=== PATIENT | female | born 1940 | race Caucasian/White ===

== ENCOUNTER 2018-07-02 22:53 | Emergency (ER) | payer OTHER ==
[2018-07-02 23:40] LABS: Absolute Lymphocytes (CBC) 2.8 K/uL (0.7-4.9); Absolute Monocytes 0.8 K/uL (0.1-1.3); Absolute Neutrophil 6.6 K/uL (1.8-8.0); Basophils % 0.7 % (0-1.3); Eosinophils % 1.6 % (0-4.4); Hematocrit 44.5 % (36.0-45.0); Lymphocytes % 26.9 % (15.3-44.8); MCH 32.3 pg (27.0-35.0); MCV 95.2 fL (80-100); MPV 9.7 fL (7.6-11.3); Monocytes % 7.8 % (3.3-12.3); RBC Red Blood Cell Count 4.68 M/uL (3.86-4.86)
[2018-07-02 23:41] LABS: Protime INR 1.02
[2018-07-03 00:02] LABS: ALT/SGPT 20 U/L (12-78); AST/SGOT 16 U/L (15-37); Albumin 4.1 g/dL (3.4-5.0); Alkaline Phosphatase 101 U/L (45-117); BUN Blood Urea Nitrogen 25 mg/dL (7-18); Bicarbonate 24 mmol/L (21-32); Bilirubin Direct 0.1 mg/dL (0-0.2); Bilirubin Total 0.3 mg/dL (0.2-1.0); Glucose Level 119 mg/dL (74-106); NT PRO-BNP 122 pg/mL (<450); Potassium 3.9 mmol/L (3.5-5.1); Protein, Total 8.4 g/dL (6.4-8.2); Sodium Level 142 mmol/L (136-145); Troponin (Emerg Dept Use Only) < 0.02 ng/mL (0.0-0.045)
[2018-07-03] MEDS ORDERED: KETOROLAC 30 MG/ML INJ ONE (00:32)
--- NOTE | 2018-07-03 00:49 | EDPHYS ---
Physician Documentation [facility] Name: Dionne Lindo Age: 77 yrs Sex: Female : 1940 Arrival Date: 07/02/2018 Time: 22:57 Bed 6 Private MD: Tony Anderson ED Physician Modesto Godoy HPI: 07/03 00:35 This 77 yrs old Female presents to ER via Wheelchair with complaints of High tw4 Blood Pressure, Doesn't Feel Well. 00:37 This 77 yrs old Female presents to ER via Wheelchair with complaints of High tw4 Blood Pressure, Doesn't Feel Well. 00:35 The patient has elevated blood pressure and discovered this at home. tw4 00:37 Onset: The symptoms/episode began/occurred today. Modifying factors: The symptoms are tw4 aggravated by activity, The symptoms are alleviated by. Associated signs and symptoms: The patient has no apparent associated signs or symptoms. Severity of symptoms: At its worst the blood pressure was moderate, in the emergency department the blood pressure is improved. The patient has not experienced similar symptoms in the past. Historical: - Allergies: 07/02 23:12 "all antibiotics"; pt get yeast infection when placed on antibiotics; ak1 - Home Meds: 23:12 potassium chloride 20 mEq Oral TbER 1 tab once daily [Active]; losartan 100 mg oral tab ak1 1 tab once daily [Active]; amlodipine 5 mg tab 1 tab once daily [Active]; Zolpidem Tartrate Oral [Active]; Ambien Oral [Active]; - PMHx: 23:12 Sleep Apnea; Hypertension; Hypokalemia; ak1 - PSHx: 23:12 bilateral knee sx; Cholecystectomy; neck sx for disc; ak1 - Immunization history:: Adult Immunizations unknown. - Social history:: Smoking status: Patient/guardian denies using tobacco. - Ebola Screening: : No symptoms or risks identified at this time. ROS: 07/03 00:37 Cardiovascular: Negative for chest pain, palpitations, and edema, Respiratory: Negative tw4 for shortness of breath, cough, wheezing, and pleuritic chest pain, Abdomen/GI: Negative for abdominal pain, nausea, vomiting, diarrhea, and constipation. MS/Extremity: Negative for injury and deformity, Skin: Negative for injury, rash, and discoloration, Neuro: Negative for headache, weakness, numbness, tingling, and seizure. Constitutional: Positive for malaise. Back: Positive for pain at rest, pain with movement, Negative for injury or acute deformity, decreased range of motion, radiated pain, acute changes. Exam: 00:37 Constitutional: This is a well developed, well nourished patient who is awake, alert, tw4 and in no acute distress. Head/Face: Normocephalic, atraumatic. Chest/axilla: Normal chest wall appearance and motion. Nontender with no deformity. No lesions are appreciated. Cardiovascular: Regular rate and rhythm with a normal S1 and S2. No gallops, murmurs, or rubs. Normal PMI, no JVD. No pulse deficits. Respiratory: Lungs have equal breath sounds bilaterally, clear to auscultation and percussion. No rales, rhonchi or wheezes noted. No increased work of breathing, no retractions or nasal flaring. Abdomen/GI: Soft, non-tender, with normal bowel sounds. No distension or tympany. No guarding or rebound. No evidence of tenderness throughout. Back: No spinal tenderness. No costovertebral tenderness. Full range of motion. MS/ Extremity: Pulses equal, no cyanosis. Neurovascular intact. Full, normal range of motion. Neuro: Awake and alert, GCS 15, oriented to person, place, time, and situation. Cranial nerves II-XII grossly intact. Motor strength 5/5 in all extremities. Sensory grossly intact. Cerebellar exam normal. Normal gait. Psych: Awake, alert, with orientation to person, place and time. Behavior, mood, and affect are within normal limits. Vital Signs: 07/02 23:07 BP 131 / 102; Pulse 103; Resp 20; Temp 98.1(O); Pulse Ox 97% on R/A; Weight 83.91 kg ak1 (R); Height 5 ft. 0 in. (152.40 cm) (R); Pain 8/10; 23:46 BP 111 / 100; Pulse 87; Resp 18; Pulse Ox 97% on R/A; ak1 07/03 00:04 BP 124 / 60; Pulse 80; Resp 18; Pulse Ox 98% ; Pain 0/10; ea 00:45 BP 126 / 70; Pulse 78; Resp 18; Temp 97.8(O); Pulse Ox 97% on R/A; Pain 6/10; ea 07/02 23:07 Body Mass Index 36.13 (83.91 kg, 152.40 cm) ak1 MDM: 07/02 23:25 Patient medically screened. tw4 07/03 00:37 Differential diagnosis: hypertensive crisis, Malignant HTN. Data reviewed: vital signs, tw4 nurses notes. Data interpreted: quality assurance monitor chassis: rhythm is normal sinus rhythm, Pulse oximetry: Interpretation: normal. Counseling: I had a detailed discussion with the patient and/or guardian regarding: the historical points, exam findings, and any diagnostic results supporting the discharge/admit diagnosis. Medication response: Toradol partially relieved the patient's pain. Response to treatment: the patient's symptoms have mildly improved after treatment, and as a result, I will discharge patient. Special discussion: I discussed with the patient/guardian in detail that at this point there is no indication for admission to the hospital. It is understood, however, that if the symptoms persist or worsen the patient needs to return immediately for re-evaluation. 07/02 23:26 Order name: Basic Metabolic Panel; Complete Time: 00:25 tw4 07/03 00:26 Interpretation: Within normal limits: CL 109; BUN 25; GFR 48; GLUC 119. tw4 07/02 23:26 Order name: CBC with Diff; Complete Time: 00:25 tw4 07/03 00:26 Interpretation: Normal except: HGB 15.1. tw4 07/02 23:26 Order name: LFT's; Complete Time: 00:25 tw4 07/02 23:26 Order name: Magnesium; Complete Time: 00:25 tw4 07/02 23:26 Order name: NT PRO-BNP; Complete Time: 00:25 tw4 07/02 23:26 Order name: PT-INR; Complete Time: 00:25 tw4 07/02 23:14 Order name: EKG; Complete Time: 23:15 ak1 07/02 23:14 Order name: EKG - Nurse/Tech; Complete Time: 23:14 [facility] 07/02 23:26 Order name: Troponin (emerg Dept Use Only); Complete Time: 00:25 tw4 07/02 23:26 Order name: Cardiac monitoring; Complete Time: 23:36 tw4 07/02 23:26 Order name: EKG - Nurse/Tech; Complete Time: 23:36 tw4 07/02 23:26 Order name: IV Saline Lock; Complete Time: 23:37 tw4 07/02 23:26 Order name: Labs collected and sent; Complete Time: 23:37 tw4 07/02 23:26 Order name: O2 Per Protocol; Complete Time: 23:36 tw4 07/02 23:26 Order name: O2 Sat Monitoring; Complete Time: 23:36 tw4 EC:20 Rate is 95 beats/min. Rhythm is regular. QRS [place] is Normal. [place] interval is normal. QRS tw4 interval is normal. QT interval is normal. No Q waves. T waves are Normal. No ST changes noted. Clinical impression: NSR w/ Non-specific ST/T Changes. Interpreted by me. Reviewed by me. Administered Medications: 00:28 Drug: TORadol 15 mg Route: IVP; Site: left antecubital; ea 00:56 Follow up: Response: No adverse reaction; Pain is decreased ea Disposition: 07/03/18 00:48 Discharged to Home. Impression: Low back pain. - Condition is Stable. - Discharge Instructions: Chronic Back Pain. - Prescriptions for Cyclobenzaprine 10 mg Oral Tablet - take 1 tablet by ORAL route every 8 hours As needed; 30 tablet. Tramadol 50 mg Oral Tablet - take 1 tablet by ORAL route every 8 hours as needed; 12 tablet. - Medication Reconciliation Form, Thank You Letter, Antibiotic Education, Prescription Opioid Use form. - Follow up: Tony Anderson MD; When: Upon discharge from the Emergency Department; Reason: Recheck today's complaints, Continuance of care. - Problem is new. - Symptoms have improved. Signatures: Dispatcher [employer] EDMS Susana Beasley RN RN ak1 Alaina Whalen RN RN Modesto Rosario MD MD tw4 Corrections: (The following items were deleted from the chart) 00:58 00:48 07/03/2018 00:48 Discharged to Home. Impression: Low back pain. Condition is ea Stable. Forms are Medication Reconciliation Form, Thank You Letter, Antibiotic Education, Prescription Opioid Use. Follow up: Tony Anderson; When: Upon discharge from the Emergency Department; Reason: Recheck today's complaints, Continuance of care. Problem is new. Symptoms have improved. tw4
--- NOTE | 2018-07-03 00:49 | ER ---
Nurse's Notes [facility] Name: Dionne Lindo Age: 77 yrs Sex: Female : 1940 Arrival Date: 07/02/2018 Time: 22:57 Bed 6 Private MD: Tony Anderson Diagnosis: Low back pain Presentation: 07/02 23:08 Presenting complaint: Patient states: back pain, pt with chronic back pain and received ak1 steroid injection last Saturday. pt c/o high blood pressure at home. Transition of care: patient was not received from another setting of care. Onset of symptoms was July 02, 2018. Risk Assessment: Do you want to hurt yourself or someone else? Patient reports no desire to harm self or others. Initial Sepsis Screen: Does the patient meet any 2 criteria? No. Patient's initial sepsis screen is negative. Does the patient have a suspected source of infection? No. Patient's initial sepsis screen is negative. Care prior to arrival: None. 23:08 Method Of Arrival: Wheelchair ak1 23:08 Acuity: KARTHIK 3 ak1 Triage Assessment: 23:12 General: Appears uncomfortable, Behavior is cooperative, anxious. Pain: Complains of ak1 pain in back. EENT: No signs and/or symptoms were reported regarding the EENT system. Neuro: Level of Consciousness is awake, alert, obeys commands, Oriented to person, place, time, situation, Moves all extremities. Gait is steady, Speech is normal, Facial symmetry appears normal. Cardiovascular: No deficits noted. Respiratory: No deficits noted. GI: No signs and/or symptoms were reported involving the gastrointestinal system. : No signs and/or symptoms were reported regarding the genitourinary system. Derm: No signs and/or symptoms reported regarding the dermatologic system. Musculoskeletal: Reports pain in back. Historical: - Allergies: 23:12 "all antibiotics"; pt get yeast infection when placed on antibiotics; ak1 - Home Meds: 23:12 potassium chloride 20 mEq Oral TbER 1 tab once daily [Active]; losartan 100 mg oral tab ak1 1 tab once daily [Active]; amlodipine 5 mg tab 1 tab once daily [Active]; Zolpidem Tartrate Oral [Active]; Ambien Oral [Active]; - PMHx: 23:12 Sleep Apnea; Hypertension; Hypokalemia; ak1 - PSHx: 23:12 bilateral knee sx; Cholecystectomy; neck sx for disc; ak1 - Immunization history:: Adult Immunizations unknown. - Social history:: Smoking status: Patient/guardian denies using tobacco. - Ebola Screening: : No symptoms or risks identified at this time. Screenin:56 Abuse screen: Denies threats or abuse. Denies injuries from another. Nutritional ak1 screening: No deficits noted. Tuberculosis screening: No symptoms or risk factors identified. Fall Risk None identified. Assessment: 23:22 Reassessment: Patient appears in no apparent distress at this time. No changes from ak1 previously documented assessment. Patient and/or family updated on plan of care and expected duration. Pain level reassessed. see triage assessment. 07/03 00:56 Reassessment: Patient and/or family updated on plan of care and expected duration. Pain ea level reassessed. Patient is alert, oriented x 3, equal unlabored respirations, skin warm/dry/pink. Discharge instructions given to patient, verbalized the understanding of instruciton. Vital Signs: 07/02 23:07 BP 131 / 102; Pulse 103; Resp 20; Temp 98.1(O); Pulse Ox 97% on R/A; Weight 83.91 kg ak1 (R); Height 5 ft. 0 in. (152.40 cm) (R); Pain 8/10; 23:46 BP 111 / 100; Pulse 87; Resp 18; Pulse Ox 97% on R/A; ak1 07/03 00:04 BP 124 / 60; Pulse 80; Resp 18; Pulse Ox 98% ; Pain 0/10; ea 00:45 BP 126 / 70; Pulse 78; Resp 18; Temp 97.8(O); Pulse Ox 97% on R/A; Pain 6/10; ea 07/02 23:07 Body Mass Index 36.13 (83.91 kg, 152.40 cm) ak1 ED Course: 07/02 22:57 Patient arrived in ED. al2 22:57 Tony Anderson MD is Private Physician. al2 23:07 Susana Beasley, RN is Primary Nurse. ak1 23:09 Triage completed. ak1 23:10 Patient has correct armband on for positive identification. Bed in low position. Call ea light in reach. Side rails up X2. 23:12 Arm band placed on Patient placed in an exam room, on a stretcher, on pulse oximetry, ak1 Patient notified of wait time. EKG completed in triage. Results shown to MD. 23:15 Inserted saline lock: 20 gauge in right antecubital area, using aseptic technique. ea Blood collected. 23:25 Modesto Godoy MD is Attending Physician. tw4 07/03 00:39 Tony Anderson MD is Referral Physician. tw4 00:57 No provider procedures requiring assistance completed. IV discontinued, intact, ea bleeding controlled, No redness/swelling at site. Pressure dressing applied. Administered Medications: 00:28 Drug: TORadol 15 mg Route: IVP; Site: left antecubital; ea 00:56 Follow up: Response: No adverse reaction; Pain is decreased ea Outcome: 00:48 Discharge ordered by MD. tw4 00:58 Discharged to home ambulatory, with family. ea 00:58 Condition: improved 00:58 Discharge instructions given to patient, Instructed on discharge instructions, follow up and referral plans. medication usage, Demonstrated understanding of instructions, follow-up care, medications, Prescriptions given X 2. 00:58 Patient left the ED. ea Signatures: Susana Beasley RN RN ak1 Alaina Whalen, RN Kelly Govea ea, Terrence, MD MD tw4
--- NOTE | 2018-07-03 16:48 | EKG ---
Test Date: 2018-07-02 Test Time: 23:05:33 Engine Service Repairer: YAMIL MEASUREMENT RESULTS: Intervals: Rate: 95 AL: 126 QRSD: 82 QT: 326 QTc: 409 [place]: P: 57 AL: 126 QRS: 35 T: 72 INTERPRETIVE STATEMENTS: Normal sinus rhythm Nonspecific T wave abnormality Abnormal ECG Compared to ECG 10/26/2017 21:12:45 T-wave abnormality now present Electronically Signed On 07-03-18 16:44:46 CDT by Quinten Abdullahi
== END 2018-07-03 00:58 | disposition home or self-care (01) ==
LOC: ER 22:53
DX: M54.5 Low back pain (principal); E87.6 Hypokalemia; Z88.1 Allergy status to other antibiotic agents
CPT/HCPCS: 36415; 80048; 80076; 83735; 83880; 84484; 85025; 85610; 93005; 96374; 99284

== ENCOUNTER 2018-09-11 05:45 | Emergency (ER) | payer OTHER ==
[2018-09-11 06:43] LABS: Absolute Lymphocytes (CBC) 2.1 K/uL (0.7-4.9); Absolute Monocytes 0.7 K/uL (0.1-1.3); Absolute Neutrophil 7.3 K/uL (1.8-8.0); Basophils % 0.5 % (0-1.3); Eosinophils % 1.1 % (0-4.4); Hematocrit 41.1 % (36.0-45.0); Lymphocytes % 20.2 % (15.3-44.8); MCH 32.9 pg (27.0-35.0); MCV 97.5 fL (80-100); Monocytes % 7.2 % (3.3-12.3); RBC Red Blood Cell Count 4.21 M/uL (3.86-4.86)
[2018-09-11] MEDS ORDERED: ONDANSETRON 4 MG/2 ML VIAL ONE (06:44)
[2018-09-11] MEDS ORDERED: FENTANYL CITR 100 MCG/2 ML ONE (06:44)
[2018-09-11 06:58] LABS: Albumin 3.6 g/dL (3.4-5.0); Bilirubin Direct 0.1 mg/dL (0-0.2); Bilirubin Total 0.3 mg/dL (0.2-1.0); Potassium 3.6 mmol/L (3.5-5.1); Protein, Total 7.5 g/dL (6.4-8.2)
[2018-09-11] MEDS ORDERED: KETOROLAC 30 MG/ML INJ ONE (07:17)
[2018-09-11] MEDS ORDERED: NA CHLORIDE 0.9% 1,000 ML ONE (07:17)
[2018-09-11 08:13] LABS: Urine Blood TRACE (NEG); Urine Glucose NEGATIVE (NEG); Urine Protein NEGATIVE (NEG)
[2018-09-11 08:19] LABS: Urine Bacteria LOADED /HPF (<20); Urine Culture Reflex Order REFLEXED; Urine Mucus 1+ /HPF (NONE SEEN); Urine RBC <5 /HPF (NONE SEEN)
--- NOTE | 2018-09-11 08:19 | RAD REPORT ---
EXAM DESCRIPTION: CTAbdomen Pelvis W Contrast - 09/11/2018 8:04 am CLINICAL HISTORY: Abdominal pain. iv only;Abd pain COMPARISON: Abdomen Pelvis W Contrast dated 03/09/2016; CT ABD PELVIS W CONTRAST dated 09/13/2015; CT ABD PELVIS W CONTRAST dated 06/16/2015 TECHNIQUE: Biphasic CT imaging of the abdomen and pelvis was performed with 100 ml non-ionic IV cont rast. All CT scans are performed using dose optimization technique as appropriate and may include automated exposure control or mA/KV adjustment according to patient size. FINDINGS: The lung bases are clear.Cholecystectomy clips. The liver, spleen, pancreas, adrenal glands and kidneys are within normal limits. No bowel obstruction, free air, free fluid or abscess. The appendix is not identified as a discrete structure, however, no secondary findings of appendicitis are identified. No evidence of significan t lymphadenopathy. Moderate stool is present in the colon. Moderate lumbar degenerative changes. Mild thickening of the urinary bladder wall is seen suggesting cystitis. IMPRESSION: Enhancement of the bladder mucosa is present suggesting cystitis. Advise correlation wit h urinalysis.
[2018-09-11] MEDS ORDERED: CEFTRIAXONE 1000 MG/VIAL ONE (08:45)
[2018-09-11] MEDS ORDERED: LORazepam 2 MG/ML VIAL ONE (08:45)
[2018-09-11] MEDS ORDERED: NA CHLORIDE 0.9% 100 ML IV ONE (08:45)
--- NOTE | 2018-09-11 09:05 | ER ---
Nurse's Notes [facility] Name: Dionne Lindo Age: 78 yrs Sex: Female : 1940 Arrival Date: 09/11/2018 Time: 05:47 Bed 6 Private MD: Diagnosis: Acute cystitis;Low back pain Presentation: 09/11 06:08 Presenting complaint: Patient states: "I am having left side pain that started jd3 yesterday morning and it has gotten worse. This morning is so bad, I was even getting nauseous.". Transition of care: patient was not received from another setting of care. Onset of symptoms was September 10, 2018. Risk Assessment: Do you want to hurt yourself or someone else? Patient reports no desire to harm self or others. Initial Sepsis Screen: Does the patient meet any 2 criteria? No. Patient's initial sepsis screen is negative. Does the patient have a suspected source of infection? No. Patient's initial sepsis screen is negative. Care prior to arrival: None. 06:08 Method Of Arrival: Wheelchair jd3 06:08 Acuity: KARTHIK 3 jd3 Historical: - Allergies: 06:14 "all antibiotics"; pt get yeast infection when placed on antibiotics; jd3 - Home Meds: 06:14 Ambien Oral [Active]; amlodipine 5 mg tab 1 tab once daily [Active]; losartan 100 mg jd3 Oral tab 1 tab once daily [Active]; potassium chloride 20 mEq Oral TbER 1 tab once daily [Active]; Zolpidem Tartrate Oral [Active]; - PMHx: 06:14 Hypertension; Hypokalemia; Sleep Apnea; jd3 - PSHx: 06:14 bilateral knee sx; Cholecystectomy; neck sx for disc; partial hysterectomy; jd3 - Immunization history:: Adult Immunizations up to date. - Social history:: Smoking status: Patient/guardian denies using tobacco. - Ebola Screening: : Patient negative for fever greater than or equal to 101.5 degrees Fahrenheit, and additional compatible Ebola Virus Disease symptoms. Screenin:17 Abuse screen: Denies threats or abuse. Nutritional screening: No deficits noted. jd3 Tuberculosis screening: No symptoms or risk factors identified. Fall Risk Ambulatory Aid- None/Bed Rest/Nurse Assist (0 pts). Gait- Normal/Bed Rest/Wheelchair (0 pts) Mental Status- Oriented to own ability (0 pts). Total Valentine Fall Scale indicates No Risk (0-24 pts). Assessment: 06:15 General: Appears uncomfortable, Behavior is cooperative, appropriate for age, anxious. jd3 Pain: Complains of pain in anterior aspect of left lateral abdomen and left lower quadrant Quality of pain is described as sharp. Neuro: Level of Consciousness is awake, alert, obeys commands, Oriented to person, place, time, situation. Cardiovascular: Capillary refill < 3 seconds Patient's skin is warm and dry. Respiratory: Airway is patent Respiratory effort is even, unlabored, Respiratory pattern is regular, symmetrical. GI: Abdomen is round non-distended, Bowel sounds present X 4 quads. Abd is soft and non tender X 4 quads. Reports nausea, Patient currently denies diarrhea, vomiting. : Denies burning with urination, inability to void, urinary frequency. EENT: No signs and/or symptoms were reported regarding the EENT system. Derm: Skin is intact, Skin is dry, Skin is normal, Skin temperature is warm. Musculoskeletal: Circulation, motion, and sensation intact. Range of motion: intact in all extremities. 07:15 Reassessment: RECD REPORT FROM JUDI COREA. 78YO WF P/W LEFT FLANK/GROIN PAIN. CT AND bp UOP PENDING. Vital Signs: 06:14 BP 161 / 74; Pulse 107; Resp 20 S; Temp 97.8(O); Pulse Ox 98% on R/A; Weight 82.55 kg jd3 (R); Height 5 ft. 0 in. (152.40 cm) (R); Pain 10/10; 07:15 BP 142 / 79; Pulse 95; Resp 16; Pulse Ox 100% on 2 lpm NC; bp 08:42 BP 138 / 73; Pulse 94; Resp 18; Pulse Ox 94% ; bp 09:30 BP 123 / 71; Pulse 91; Resp 16; Pulse Ox 98% ; bp 06:14 Body Mass Index 35.54 (82.55 kg, 152.40 cm) jd3 ED Course: 05:47 Patient arrived in ED. ds1 06:08 Bassam Brown RN is Primary Nurse. jd3 06:11 Triage completed. jd3 06:15 Arm band placed on. jd3 06:18 Patient has correct armband on for positive identification. Bed in low position. Call jd3 light in reach. Side rails up X2. Adult w/ patient. 06:20 Fransisco Ragland PA [facility]. jr8 06:20 Modesto Godoy MD is Attending Physician. jr8 06:45 Inserted saline lock: 20 gauge in right antecubital area, using aseptic technique. jd3 Blood collected. 08:01 CT completed. Patient tolerated procedure well. Patient moved to CT via stretcher. sj Patient moved back from CT. 08:04 CT Abd/Pelvis - W/Contrast In Process Unspecified. EDMS 08:04 Urine collected: clean catch specimen, cloudy, karol colored. jb1 09:30 No provider procedures requiring assistance completed. IV discontinued, intact, bp bleeding controlled, No redness/swelling at site. Pressure dressing applied. Administered Medications: 06:44 Drug: Zofran 4 mg Route: IVP; Site: right antecubital; jd3 07:15 Follow up: Response: Nausea is decreased bp 06:44 Drug: fentaNYL (PF) 50 mcg Route: IVP; Site: right antecubital; jd3 07:14 Follow up: Response: Pain is decreased bp 07:10 Drug: NS 0.9% 1000 ml Route: IV; Rate: 1000 ml; Site: right antecubital; bp 07:10 Drug: TORadol 30 mg Route: IVP; Site: right antecubital; bp 07:30 Follow up: Response: Pain is decreased bp 08:41 Drug: Rocephin - (cefTRIAXone) 1 grams Route: IVPB; Infused Over: 30 mins; Site: right bp antecubital; 08:41 Drug: Ativan 0.5 mg Route: IVP; Site: right antecubital; bp 09:00 Follow up: Response: Marked relief of symptoms bp 10:19 Not Given (Physician Discretion): fentaNYL (PF) 50 mcg IVP once bp Outcome: 09:05 Discharge ordered by . jr8 09:30 Discharged to home via wheelchair, with family. bp 09:30 Condition: stable 09:30 Discharge instructions given to patient, family, Instructed on discharge instructions, follow up and referral plans. medication usage, Demonstrated understanding of instructions, follow-up care, medications, Prescriptions given X 4. 10:22 Patient left the ED. bp Addendum: 09/15/2018 07:33 Addendum: Culture Results: Positive urine culture. No further action required. Bacteria s s sensitive to prescribed antibiotic. Signatures: Dispatcher [employer] Matteo Ambrose jb1 Lisseth Chow Demi ds1 Sherin Flynn RN RN ss Fransisco Ragland PA PA jr8 Bassam Brown RN RN jd3 Jack David RN RN bp
--- NOTE | 2018-09-11 09:06 | EDPHYS ---
Physician Documentation [facility] Name: Dionne Lindo Age: 78 yrs Sex: Female : 1940 Arrival Date: 09/11/2018 Time: 05:47 Bed 6 Private MD: ED Physician Modesto Godoy HPI: 09/11 07:32 This 78 yrs old Female presents to ER via Wheelchair with complaints of L jr8 Side Pain. 07:32 Onset: The symptoms/episode began/occurred acutely, yesterday. Modifying factors: The jr8 symptoms are alleviated by nothing. the symptoms are aggravated by nothing. Associated signs and symptoms: The patient has no apparent associated signs or symptoms. The symptoms are described as stabbing. Severity of pain: At its worst the pain was moderate. The patient has not experienced similar symptoms in the past. The patient has not recently seen a physician. Pain to left side of abdomen along with left lower quadrant of abdomen. Started yesterday without relief of medicine at home . Historical: - Allergies: 06:14 "all antibiotics"; pt get yeast infection when placed on antibiotics; jd3 - Home Meds: 06:14 Ambien Oral [Active]; amlodipine 5 mg tab 1 tab once daily [Active]; losartan 100 mg jd3 Oral tab 1 tab once daily [Active]; potassium chloride 20 mEq Oral TbER 1 tab once daily [Active]; Zolpidem Tartrate Oral [Active]; - PMHx: 06:14 Hypertension; Hypokalemia; Sleep Apnea; jd3 - PSHx: 06:14 bilateral knee sx; Cholecystectomy; neck sx for disc; partial hysterectomy; jd3 - Immunization history:: Adult Immunizations up to date. - Social history:: Smoking status: Patient/guardian denies using tobacco. - Ebola Screening: : Patient negative for fever greater than or equal to 101.5 degrees Fahrenheit, and additional compatible Ebola Virus Disease symptoms. ROS: 07:32 Eyes: Negative for injury, pain, redness, and discharge, ENT: Negative for injury, jr8 pain, and discharge, Neck: Negative for injury, pain, and swelling, Cardiovascular: Negative for chest pain, palpitations, and edema, Respiratory: Negative for shortness of breath, cough, wheezing, and pleuritic chest pain, MS/Extremity: Negative for injury and deformity, Skin: Negative for injury, rash, and discoloration, Neuro: Negative for headache, weakness, numbness, tingling, and seizure. 07:32 Abdomen/GI: Positive for abdominal pain, Negative for nausea, vomiting, and diarrhea, constipation, abdominal cramps, abdominal distension, hematemesis, black/tarry stool, rectal pain, rectal bleeding. 07:32 Back: Positive for flank pain, on the left. Exam: 07:32 Eyes: Pupils equal round and reactive to light, extra-ocular motions intact. Lids and jr8 lashes normal. Conjunctiva and sclera are non-icteric and not injected. Cornea within normal limits. Periorbital areas with no swelling, redness, or edema. ENT: Nares patent. No nasal discharge, no septal abnormalities noted. Tympanic membranes are normal and external auditory canals are clear. Oropharynx with no redness, swelling, or masses, exudates, or evidence of obstruction, uvula midline. Mucous membranes moist. Neck: Trachea midline, no thyromegaly or masses palpated, and no cervical lymphadenopathy. Supple, full range of motion without nuchal rigidity, or vertebral point tenderness. No Meningismus. Cardiovascular: Regular rate and rhythm with a normal S1 and S2. No gallops, murmurs, or rubs. Normal PMI, no JVD. No pulse deficits. Respiratory: Lungs have equal breath sounds bilaterally, clear to auscultation and percussion. No rales, rhonchi or wheezes noted. No increased work of breathing, no retractions or nasal flaring. Back: No spinal tenderness. No costovertebral tenderness. Full range of motion. Skin: Warm, dry with normal turgor. Normal color with no rashes, no lesions, and no evidence of cellulitis. MS/ Extremity: Pulses equal, no cyanosis. Neurovascular intact. Full, normal range of motion. Neuro: Awake and alert, GCS 15, oriented to person, place, time, and situation. Cranial nerves II-XII grossly intact. Motor strength 5/5 in all extremities. Sensory grossly intact. Cerebellar exam normal. Normal gait. 07:32 Abdomen/GI: Inspection: obese Bowel sounds: active, all quadrants, Palpation: soft, in all quadrants, moderate abdominal tenderness, in the anterior aspect of left lateral abdomen and left lower quadrant, mass, is not appreciated, rebound tenderness, is not appreciated, voluntary guarding, is elicited in the left lower quadrant, involuntary guarding, is not appreciated, no appreciated organomegaly, Indicators: McBurney's point is not tender, Braga's sign is negative, Rovsing's sign is negative, Liver: tenderness, is not appreciated. Vital Signs: 06:14 BP 161 / 74; Pulse 107; Resp 20 S; Temp 97.8(O); Pulse Ox 98% on R/A; Weight 82.55 kg jd3 (R); Height 5 ft. 0 in. (152.40 cm) (R); Pain 10/10; 07:15 BP 142 / 79; Pulse 95; Resp 16; Pulse Ox 100% on 2 lpm NC; bp 08:42 BP 138 / 73; Pulse 94; Resp 18; Pulse Ox 94% ; bp 09:30 BP 123 / 71; Pulse 91; Resp 16; Pulse Ox 98% ; bp 06:14 Body Mass Index 35.54 (82.55 kg, 152.40 cm) jd3 MDM: 06:20 Patient medically screened. jr8 09:01 Data reviewed: vital signs, nurses notes, lab test result(s), radiologic studies, CT jr8 scan. Data interpreted: Pulse oximetry: on room air is 95 %. Interpretation: normal. Counseling: I had a detailed discussion with the patient and/or guardian regarding: the historical points, exam findings, and any diagnostic results supporting the discharge/admit diagnosis, lab results, radiology results, the need for outpatient follow up, a family practitioner, to return to the emergency department if symptoms worsen or persist or if there are any questions or concerns that arise at home. Response to treatment: the patient's symptoms have markedly improved after treatment. ED course: Patients pain more then likely a combination of urinary tract infection with musculoskeletal pain from lifting the other day. Will send home on medications. Patient feeling much better. No systemic WBC count or indication for sepsis. S/S given to watch for if she worsens and needs to come back. Family and patient good with this plan . 09/11 06:11 Order name: Basic Metabolic Panel tw4 09/11 06:11 Order name: CBC with Diff; Complete Time: 06:51 tw4 09/11 06:11 Order name: Hepatic Function; Complete Time: 07:05 tw4 12/13 06:11 Order name: Lipase; Complete Time: 07:05 tw4 09/11 06:11 Order name: Urine Microscopic Only; Complete Time: 08:22 tw4 09/11 06:12 Order name: Basic Metabolic Panel; Complete Time: 07:05 EDNM 09/11 07:06 Order name: CT Abd/Pelvis - W/Contrast; Complete Time: 08:22 jr8 09/11 08:10 Order name: Urine Dipstick--Ancillary (enter results); Complete Time: 08:13 bd 09/11 08:21 Order name: Urine Culture EDNM 09/11 06:11 Order name: IV Saline Lock; Complete Time: 06:45 tw4 09/11 06:11 Order name: Labs collected and sent; Complete Time: 06:45 tw4 09/11 06:11 Order name: Urine Dipstick-Ancillary (obtain specimen); Complete Time: 08:04 tw4 09/11 06:29 Order name: Oxygen; Complete Time: 06:33 jr8 Administered Medications: 06:44 Drug: Zofran 4 mg Route: IVP; Site: right antecubital; jd3 07:15 Follow up: Response: Nausea is decreased bp 06:44 Drug: fentaNYL (PF) 50 mcg Route: IVP; Site: right antecubital; jd3 07:14 Follow up: Response: Pain is decreased bp 07:10 Drug: NS 0.9% 1000 ml Route: IV; Rate: 1000 ml; Site: right antecubital; bp 07:10 Drug: TORadol 30 mg Route: IVP; Site: right antecubital; bp 07:30 Follow up: Response: Pain is decreased bp 08:41 Drug: Rocephin - (cefTRIAXone) 1 grams Route: IVPB; Infused Over: 30 mins; Site: right bp antecubital; 08:41 Drug: Ativan 0.5 mg Route: IVP; Site: right antecubital; bp 09:00 Follow up: Response: Marked relief of symptoms bp 10:19 Not Given (Physician Discretion): fentaNYL (PF) 50 mcg IVP once bp Disposition: 09/12 04:25 Co-signature as Attending Physician, Modesto Godoy MD I agree with the assessment and tw4 plan of care. Disposition: 09/11/18 09:05 Discharged to Home. Impression: Acute cystitis, Low back pain. - Condition is Stable. - Discharge Instructions: Back Pain, Adult, Urinary Tract Infection, Adult. - Prescriptions for Diflucan 150 mg Oral Tablet - take 1 tablet by ORAL route one time for 1 day; 1 tablet. Robaxin 500 mg Oral Tablet - take 2 tablet by ORAL route every 6 hours As needed; 40 tablet. Macrobid 100 mg Oral Capsule - take 1 capsule by ORAL route every 12 hours for 7 days; 14 capsule. Ibuprofen 800 mg Oral Tablet - take 1 tablet by ORAL route every 12 hours As needed take with food; 20 tablet. - Medication Reconciliation Form, Thank You Letter, Antibiotic Education, Prescription Opioid Use form. - Follow up: Private Physician; When: 2 - 3 days; Reason: Recheck today's complaints, Continuance of care, Re-evaluation by your physician. - Problem is new. - Symptoms have improved. Signatures: Dispatcher [employer] [facility] Fransisco Ragland PA PA jr8 Bassam Brown RN RN jd3 Jack David RN RN bp Modesto Godoy MD MD tw4 Corrections: (The following items were deleted from the chart) 09/11 06:54 06:12 Creatinine for Radiology+C.LAB.BRZ ordered. [facility] 10:22 09:05 09/11/2018 09:05 Discharged to Home. Impression: Acute cystitis; Low back pain. bp Condition is Stable. Forms are Medication Reconciliation Form, Thank You Letter, Antibiotic Education, Prescription Opioid Use. Follow up: Private Physician; When: 2 - 3 days; Reason: Recheck today's complaints, Continuance of care, Re-evaluation by your physician. Problem is new. Symptoms have improved. jr8
== END 2018-09-11 10:22 | disposition home or self-care (01) ==
LOC: ER 05:45
DX: N30.00 Acute cystitis without hematuria (principal); I10 Essential (primary) hypertension; E87.6 Hypokalemia; Z88.1 Allergy status to other antibiotic agents
CPT/HCPCS: 74177; 80048; 80076; 83690; 85025; 87077; 87086; 87088; 87186; 96374; 96375; 99284; J2405; J3010; J7030; Q9967; 81003; 81015

== ENCOUNTER 2018-09-13 13:15 | Emergency (ER) | payer OTHER ==
[2018-09-13] MEDS ORDERED: DEXAMETHASONE 10 MG/ML VIAL ONE (15:16)
[2018-09-13] MEDS ORDERED: ONDANSETRON 4 MG/2 ML VIAL ONE (15:17)
[2018-09-13] MEDS ORDERED: KETOROLAC 30 MG/ML INJ ONE (15:17)
[2018-09-13] MEDS ORDERED: MORPHINE 4 MG/ML SYR ONE (15:17)
[2018-09-13 15:24] LABS: Absolute Lymphocytes (CBC) 1.3 K/uL (0.7-4.9); Absolute Monocytes 0.8 K/uL (0.1-1.3); Absolute Neutrophil 8.5 K/uL (1.8-8.0); Basophils % 0.5 % (0-1.3); Eosinophils % 0.4 % (0-4.4); Hematocrit 40.5 % (36.0-45.0); Lymphocytes % 12.1 % (15.3-44.8); MCH 32.9 pg (27.0-35.0); MCV 96.5 fL (80-100); Monocytes % 7.1 % (3.3-12.3)
[2018-09-13 15:36] LABS: Potassium 3.4 mmol/L (3.5-5.1)
[2018-09-13 16:26] LABS: Urine Blood NEGATIVE (NEG); Urine Glucose NEGATIVE (NEG); Urine Protein NEGATIVE (NEG); Urine pH 5.5 (5.0-7.0)
--- NOTE | 2018-09-13 16:36 | ER ---
Nurse's Notes [facility] Name: Dionne Lindo Age: 78 yrs Sex: Female : 1940 Arrival Date: 09/13/2018 Time: 13:19 Bed 13 Private MD: Tony Anderson Diagnosis: Sciatica, left side Presentation: 09/13 13:22 Presenting complaint: Patient states: "I have this pain in my back and my leg hurts" aj1 Reports back pain that radiates down the left leg. Patient was seen in this ER for the same complaint on , she was diagnosed with a UTI and discharge with Rx for nitrofurantoin, ibuprofen and methobarbamol. Patient states that she is not having any pain relief with these medications They spoke with her PHCP and was told to have her finish her abx before they saw here. Transition of care: patient was not received from another setting of care. Onset of symptoms was August 2018. Risk Assessment: Do you want to hurt yourself or someone else? Patient reports no desire to harm self or others. Initial Sepsis Screen: Does the patient meet any 2 criteria? HR > 90 bpm. No. Patient's initial sepsis screen is negative. Does the patient have a suspected source of infection? Yes: Dysuria/Frequency/Urgency/UTI. Care prior to arrival: None. 13:22 Method Of Arrival: Wheelchair aj 13:22 Acuity: KARTHIK 4 aj1 Triage Assessment: 13:27 General: Appears in no apparent distress. uncomfortable, Behavior is calm, cooperative, aj1 appropriate for age. Pain: Complains of pain in back Pain currently is 10 out of 10 on a pain scale. Neuro: Level of Consciousness is awake, alert, obeys commands. Cardiovascular: Patient's skin is warm and dry. Musculoskeletal: Range of motion: intact in all extremities. Historical: - Allergies: 13:27 "all antibiotics"; pt get yeast infection when placed on antibiotics; aj1 - Home Meds: 13:27 Ambien Oral [Active]; amlodipine 5 mg tab 1 tab once daily [Active]; losartan 100 mg aj1 Oral tab 1 tab once daily [Active]; potassium chloride 20 mEq Oral TbER 1 tab once daily [Active]; Zolpidem Tartrate Oral [Active]; - PMHx: 13:27 Hypertension; Hypokalemia; Sleep Apnea; aj1 - PSHx: 13:40 bilateral knee sx; Cholecystectomy; neck sx for disc; partial hysterectomy; rb1 - Immunization history:: Flu vaccine is not up to date. - Social history:: Smoking status: Patient/guardian denies using tobacco. - Ebola Screening: : Patient denies travel to an Ebola-affected area in the 21 days before illness onset. Screenin:40 Abuse screen: Denies threats or abuse. Nutritional screening: No deficits noted. rb1 Tuberculosis screening: No symptoms or risk factors identified. Fall Risk No fall in past 12 months (0 pts). No secondary diagnosis (0 pts). IV access (20 points). Ambulatory Aid- None/Bed Rest/Nurse Assist (0 pts). Gait- Normal/Bed Rest/Wheelchair (0 pts) Mental Status- Oriented to own ability (0 pts). Total Valentine Fall Scale indicates No Risk (0-24 pts). Assessment: 13:40 General: Appears uncomfortable, Behavior is calm, cooperative, Denies fever. Pain: rb1 Complains of pain in back Pain radiates to left leg Pain currently is 10 out of 10 on a pain scale. Neuro: Level of Consciousness is awake, alert, obeys commands, Oriented to person, place, time, situation. Cardiovascular: Capillary refill < 3 seconds is sluggish in bilateral toes. Respiratory: Airway is patent Respiratory effort is even, unlabored, Respiratory pattern is regular, symmetrical. GI: No signs and/or symptoms were reported involving the gastrointestinal system. : Reports incontinence, pt. stated, "Since I got diagnosed with a UTI, I have to wear a pad because my bladder leaks. I can't always get to the bathroom in time.". Derm: Skin is pink, warm \\T\\ dry. Musculoskeletal: Range of motion: intact in all extremities. 14:38 Reassessment: Patient appears in no apparent distress at this time. Patient and/or rb1 family updated on plan of care and expected duration. Pain level reassessed. Patient is alert, oriented x 3, equal unlabored respirations, skin warm/dry/pink. 15:38 Reassessment: Patient appears in no apparent distress at this time. Patient and/or rb1 family updated on plan of care and expected duration. Pain level reassessed. Patient is alert, oriented x 3, equal unlabored respirations, skin warm/dry/pink. Daughter at bedside. 16:32 Reassessment: Patient appears in no apparent distress at this time. Pt. ambulated to rb1 the bathroom and back to the room without difficulty. Provider notified of ambulation. Patient states symptoms have improved. Vital Signs: 13:27 BP 146 / 77; Pulse 108; Resp 20; Temp 98.3; Pulse Ox 96% on R/A; Weight 82.55 kg (R); aj1 Height 5 ft. 0 in. (152.40 cm) (R); Pain 10/10; 14:25 BP 143 / 69; Pulse 70; Resp 17; Pulse Ox 95% on R/A; rb1 15:20 BP 120 / 61; Pulse 92; Resp 18; Pulse Ox 96% ; Pain 7/10; rb1 16:20 BP 128 / 59; Pulse 90; Resp 17; Temp 98.1(O); Pulse Ox 96% on R/A; Pain 5/10; rb1 13:27 Body Mass Index 35.54 (82.55 kg, 152.40 cm) aj1 ED Course: 13:19 Patient arrived in ED. sb2 13:19 Tony Anderson MD is Private Physician. sb2 13:26 Triage completed. aj1 13:27 Arm band placed on Patient placed in an exam room. aj1 13:40 Patient has correct armband on for positive identification. Bed in low position. Call rb1 light in reach. Side rails up X2. Pulse ox on. NIBP on. Warm blanket given. 13:42 [facility] 13:42 Skip Trevizo MD is Attending Physician. [facility] 14:22 Norma Barry, ANMOL is Primary Nurse. rb1 15:05 Inserted saline lock: 22 gauge in right antecubital area, using aseptic technique. rb1 Blood collected. 16:35 Tony Anderson MD is Referral Physician. [facility] 17:00 No provider procedures requiring assistance completed. IV discontinued, intact, rb1 bleeding controlled, No redness/swelling at site. Pressure dressing applied. Administered Medications: 15:15 Drug: Decadron - Dexamethasone 10 mg Route: IVP; Site: right antecubital; rb1 15:30 Follow up: Response: No adverse reaction [facility] 15:15 Drug: Ketorolac 15 mg Route: IVP; Site: right antecubital; rb1 15:30 Follow up: Response: No adverse reaction; Pain is decreased rb1 15:15 Drug: morphine 4 mg {Note: administered 2 mg per pt. request. Wasted 2 mg..} Route: rb1 IVP; Site: right antecubital; 15:30 Follow up: Response: No adverse reaction; Pain is decreased rb1 15:15 Drug: Zofran 4 mg Route: IVP; Site: right antecubital; rb1 15:30 Follow up: Response: No adverse reaction; Nausea is decreased [facility] Outcome: 16:35 Discharge ordered by . darryn 17:00 Patient left the ED. rb1 17:00 Discharged to home via wheelchair, with family. rb1 17:00 Condition: stable 17:00 Discharge instructions given to patient, Instructed on discharge instructions, follow up and referral plans. medication usage, Demonstrated understanding of instructions, follow-up care, medications, Prescriptions given X 1. Signatures: Trisha Tobin RN RN aj1 Robles Batista PA PA jmm Barber, Rebecca, ANMOL RN rb1 Chelsea Ramos sb2
--- NOTE | 2018-09-13 16:36 | EDPHYS ---
Physician Documentation [facility] Name: Dionne Lindo Age: 78 yrs Sex: Female : 1940 Arrival Date: 09/13/2018 Time: 13:19 Bed 13 Private MD: Tony Anderson ED Physician Skip Trevizo HPI: 09/13 14:42 This 78 yrs old Female presents to ER via Wheelchair with complaints of Back jmm Pain, Leg Pain. 14:42 The patient presents with pain that is acute. The symptoms are located in the low back. jmm Onset: The symptoms/episode began/occurred gradually. 14:43 The pain radiates to the left leg. Associated signs and symptoms: Pertinent negatives: jmm fever, vomiting. This is a 78 year old female with a history of htn, that presents to the ED with lower back pain which radiates down the left leg. Patient states she was evaluated in the ED this past and diagnosed with uti. States she has continued to have been with no relief from prescribed medications. Patient states she is able to walk but is very painful. Patient has history of DDD which she last saw a neurosurgeon for 15 years ago. Patient denies fecal incontinence but states having difficulty with urination. Denies fever. . Historical: - Allergies: 13:27 "all antibiotics"; pt get yeast infection when placed on antibiotics; aj1 - Home Meds: 13:27 Ambien Oral [Active]; amlodipine 5 mg tab 1 tab once daily [Active]; losartan 100 mg aj1 Oral tab 1 tab once daily [Active]; potassium chloride 20 mEq Oral TbER 1 tab once daily [Active]; Zolpidem Tartrate Oral [Active]; - PMHx: 13:27 Hypertension; Hypokalemia; Sleep Apnea; aj1 - PSHx: 13:40 bilateral knee sx; Cholecystectomy; neck sx for disc; partial hysterectomy; rb1 - Immunization history:: Flu vaccine is not up to date. - Social history:: Smoking status: Patient/guardian denies using tobacco. - Ebola Screening: : Patient denies travel to an Ebola-affected area in the 21 days before illness onset. ROS: 14:43 Constitutional: Negative for fever, chills, and weight loss, Cardiovascular: Negative jmm for chest pain, palpitations, and edema, Respiratory: Negative for shortness of breath, cough, wheezing, and pleuritic chest pain. 14:43 Back: Positive for pain with movement. 14:43 MS/extremity: Positive for pain. 14:43 All other systems are negative. Exam: 14:43 Head/Face: atraumatic. Eyes: EOMI, no conjunctival erythema appreciated ENT: Moist jm Mucus Membranes Neck: Trachea midline, Supple Chest/axilla: Normal chest wall appearance and motion. Cardiovascular: Regular rate and rhythm. No edema appreciated Respiratory: Normal respirations, no respiratory distress appreciated 14:43 Constitutional: The patient appears alert, awake, uncomfortable. 14:43 Abdomen/GI: Rectal exam: rectal tone normal. 14:43 Neuro: extensor hallucis longus intact bilaterally. 14:43 Psych: Behavior/mood is pleasant, cooperative. Vital Signs: 13:27 BP 146 / 77; Pulse 108; Resp 20; Temp 98.3; Pulse Ox 96% on R/A; Weight 82.55 kg (R); aj1 Height 5 ft. 0 in. (152.40 cm) (R); Pain 10/10; 14:25 BP 143 / 69; Pulse 70; Resp 17; Pulse Ox 95% on R/A; rb1 15:20 BP 120 / 61; Pulse 92; Resp 18; Pulse Ox 96% ; Pain 7/10; rb1 16:20 BP 128 / 59; Pulse 90; Resp 17; Temp 98.1(O); Pulse Ox 96% on R/A; Pain 5/10; rb1 13:27 Body Mass Index 35.54 (82.55 kg, 152.40 cm) aj1 MDM: 14:37 Patient medically screened. [facility] 16:35 Data reviewed: vital signs, nurses notes. Counseling: I had a detailed discussion with [facility] the patient and/or guardian regarding: the historical points, exam findings, and any diagnostic results supporting the discharge/admit diagnosis, lab results, the need for outpatient follow up, to return to the emergency department if symptoms worsen or persist or if there are any questions or concerns that arise at home. 16:35 ED course: Patient states feeling much better after analgesics. Patient is able to [facility] ambulate. PE findings are not consistent with cauda equina. Family advised to follow up with neurosurgery for further evaluation and given return precautions. Family understood and agrees with the plan of care. . 09/13 14:43 Order name: BMP; Complete Time: 15:42 [facility] 09/13 14:43 Order name: CBC with Diff; Complete Time: 15:42 [facility] 09/13 14:44 Order name: Urine Dipstick--Ancillary (enter results); Complete Time: 16:28 lt1 09/13 14:38 Order name: Saline Lock; Complete Time: 15:24 [facility] Administered Medications: 15:15 Drug: Decadron - Dexamethasone 10 mg Route: IVP; Site: right antecubital; rb1 15:30 Follow up: Response: No adverse reaction rb1 15:15 Drug: Ketorolac 15 mg Route: IVP; Site: right antecubital; rb1 15:30 Follow up: Response: No adverse reaction; Pain is decreased rb1 15:15 Drug: morphine 4 mg {Note: administered 2 mg per pt. request. Wasted 2 mg..} Route: rb1 IVP; Site: right antecubital; 15:30 Follow up: Response: No adverse reaction; Pain is decreased rb1 15:15 Drug: Zofran 4 mg Route: IVP; Site: right antecubital; rb1 15:30 Follow up: Response: No adverse reaction; Nausea is decreased rb1 Disposition: 09/14 07:49 Co-signature as Attending Physician, Skip Trevizo MD. Disposition: 09/13/18 16:35 Discharged to Home. Impression: Sciatica, left side. - Condition is Stable. - Discharge Instructions: Sciatica. - Prescriptions for Tylenol- Codeine #3 300-30 mg Oral Tablet - take 1 tablet by ORAL route every 6 hours As needed; 20 tablet. - Medication Reconciliation Form, Thank You Letter, Antibiotic Education, Prescription Opioid Use form. - Follow up: Tony Anderson MD; When: 2 - 3 days; Reason: Recheck today's complaints, Continuance of care, Re-evaluation by your physician. Signatures: Dispatcher [employer] Trisha Turcios, RN RN ami1 Robles Batista PA PA Norma Cagle RN RN rb1 Skip Trevizo MD MD gs Corrections: (The following items were deleted from the chart) 09/13 17:00 16:35 09/13/2018 16:35 Discharged to Home. Impression: Sciatica, left side. Condition rb1 is Stable. Forms are Medication Reconciliation Form, Thank You Letter, Antibiotic Education, Prescription Opioid Use. Follow up: Tony Anderson; When: 2 - 3 days; Reason: Recheck today's complaints, Continuance of care, Re-evaluation by your physician. darryn
== END 2018-09-13 17:00 | disposition home or self-care (01) ==
LOC: ER 13:15
DX: M54.32 Sciatica, left side (principal); I10 Essential (primary) hypertension; E87.6 Hypokalemia; Z88.1 Allergy status to other antibiotic agents
CPT/HCPCS: 36415; 80048; 81003; 85025; 96374; 96375; 99284; J1100; J2405

== ENCOUNTER 2018-09-17 13:10 | Observation (INO) | payer OTHER ==
[2018-09-17] MEDS ORDERED: ONDANSETRON 4 MG/2 ML VIAL IV PRN (13:41)
[2018-09-17] MEDS: LOSARTAN POTASSIUM 50 MG TABLET PO SCH (14:00)
[2018-09-17] MEDS: MORPHINE 2 MG/ML SYR IV PRN ×3 (14:11→20:31)
[2018-09-17 14:34] LABS: Absolute Lymphocytes (CBC) 1.9 K/uL (0.7-4.9); Absolute Monocytes 0.8 K/uL (0.1-1.3); Absolute Neutrophil 8.5 K/uL (1.8-8.0); Basophils % 0.4 % (0-1.3); Eosinophils % 0.6 % (0-4.4); Hematocrit 43.8 % (36.0-45.0); Lymphocytes % 16.7 % (15.3-44.8); MPV 8.9 fL (7.6-11.3); Monocytes % 7.1 % (3.3-12.3); RBC Red Blood Cell Count 4.55 M/uL (3.86-4.86)
[2018-09-17 14:41] LABS: Potassium 3.9 mmol/L (3.5-5.1)
[2018-09-17] MEDS: METHOCARBAMOL 1,000 MG in NA CHLORIDE 0.9% 100 ML IV SCH ×2 (15:29→21:50)
[2018-09-17] MEDS: DEXAMETHASONE 4 MG/ML VIAL IV SCH ×2 (15:30→21:52)
[2018-09-17 16:19] LABS: Urine Appearance CLEAR; Urine Bilirubin NEGATIVE (NEG); Urine Blood NEGATIVE (NEG); Urine Color YELLOW; Urine Glucose NEGATIVE (NEG); Urine Protein NEGATIVE (NEG); Urine Specific Gravity 1.015 (1.005-1.030)
[2018-09-17] MEDS: AMLODIPINE 5 MG TAB PO SCH (16:53)
[2018-09-17 17:06] LABS: Urine Microscopic Reflex NO UMIC
--- NOTE | 2018-09-17 17:42 | RAD REPORT ---
EXAM DESCRIPTION: MRI - Lumbar Spine Wo Lewis - 09/17/2018 4:47 pm CLINICAL HISTORY: Back pain, radiculopathy COMPARISON: Lumbar spine June 2015, lumbar spine plain films July 04, 2018 TECHNIQUE: Sagittal T1-weighted, T2-weighted and T2-STIR weighted sequences were obtained. Axial T1 -weighted and heavily T2-weighted sequenceswere obtained through the lumbar disc levels. FINDINGS: Lumbar bodies are normal in height. Minimal subluxation of L3 on L4 and L4 on L5 noted sec ondary to facet degenerative change. No suspicious marrow signal. No paraspinal masses. Conus is normal with no clumping or thickening of the cauda equina. T12-L1 level: Mild disc bulge changes. No canal or foramen stenosis. L1-2 level: Disc desiccation and circumferential disc bulge. No central spinal stenosis. Mild left fo raminal stenosis present. L2-3 level: Disc desiccation and circumferential disc bulge. Canal is borderline stenotic at 10 mm. M ild bilateral foraminal encroachment. Ample perineural fat still present. L3-4 level: Disc is desiccated. Circumferential bulging of disc material is present accentuated by th e minimal subluxation. Facet degenerative change and ligamentous thickening are present. Spinal steno sis is present at 8 mm. Bilateral foraminal stenosis present. L4-5 level: Disc desiccation with disc bulge present. Facet hypertrophy is present. Spinal stenosis t o 8 mm noted. Mild to moderate foraminal encroachment changes are present. L5-S1 level: Disc is desiccated. No herniation or significant disc bulge. Mild left foraminal stenosi s. IMPRESSION: Multilevel lumbar spondylosis changes are present. There is spinal stenosis at L3-4 and L4-5. Canal is borderline stenotic at L2-3. Multiple foramina show encroachment. None are critical and perineural fat is still present in all of the foramina. Scattered bony degenerative changes. No acute bone process.
[2018-09-17] MEDS: ZOLPIDEM TARTRATE 5 MG TABLET PO PRN (23:00)
[2018-09-18] MEDS: MORPHINE 2 MG/ML SYR IV PRN ×3 (05:38→15:51)
[2018-09-18] MEDS: LOSARTAN POTASSIUM 50 MG TABLET PO SCH (09:15)
[2018-09-18] MEDS: AMLODIPINE 5 MG TAB PO SCH (09:15)
[2018-09-18] MEDS: METHOCARBAMOL 1,000 MG in NA CHLORIDE 0.9% 100 ML IV SCH ×2 (09:16→21:01)
[2018-09-18] MEDS: ZOLPIDEM TARTRATE 5 MG TABLET PO PRN (21:01)
[2018-09-19] MEDS: MORPHINE 2 MG/ML SYR IV PRN ×4 (02:30→17:04)
[2018-09-19] MEDS: AMLODIPINE 5 MG TAB PO SCH (09:02)
[2018-09-19] MEDS: METHOCARBAMOL 1,000 MG in NA CHLORIDE 0.9% 100 ML IV SCH ×2 (09:03→21:26)
[2018-09-19] MEDS: LOSARTAN POTASSIUM 50 MG TABLET PO SCH (09:03)
[2018-09-19] MEDS: DEXAMETHASONE 4 MG/ML VIAL IV SCH (16:58)
--- NOTE | 2018-09-19 21:19 | PN ---
Date of Progress Note: 09/18/2018 The patient states she feels considerably better. The morphine has relieved much of her pain. Howev er, she was basically not moving. This was encouraged for the patient and we will see her in the a.m. about discharging her on medication including steroids, muscle relaxants, and analgesics depending o n the response when she mobilize. HR/MODL Voice ID: [id number] Report ID: [id number]
--- NOTE | 2018-09-19 21:25 | PN ---
Date of Progress Note: 09/19/2018 The patient states the pain is much more noticeable today. She is quite uncomfortable. However, she has done more gotten up sitting in the chair and has classical signs and symptoms of a stenosis, and in view of the fact that she has not responded and steroids were not given IV, it was decided to brandy p her overnight for pain management and the use of IV steroids and hopefully can be discharged in the a.m. HR/MODL Voice ID: [id number] Report ID: [id number]
[2018-09-19] MEDS: ZOLPIDEM TARTRATE 5 MG TABLET PO PRN (21:26)
[2018-09-20] MEDS: DEXAMETHASONE 4 MG/ML VIAL IV SCH ×2 (00:51→08:07)
[2018-09-20] MEDS: MORPHINE 2 MG/ML SYR IV PRN ×2 (04:02→12:49)
[2018-09-20] MEDS: AMLODIPINE 5 MG TAB PO SCH (08:01)
[2018-09-20] MEDS: LOSARTAN POTASSIUM 50 MG TABLET PO SCH (08:01)
[2018-09-20] MEDS: METHOCARBAMOL 1,000 MG in NA CHLORIDE 0.9% 100 ML IV SCH (09:41)
--- NOTE | 2018-09-20 17:40 | PN ---
Date of Progress Note: 09/20/2018 Subjective: The patient feels somewhat better today, perhaps secondary to the steroids. She could b e discharged on the Tylenol 3 and a Medrol Dosepak to follow up with me this coming week. The possib ility of referring her to the neurosurgeon. HR/MODL Voice ID: [id number] Report ID: [id number]
--- NOTE | 2018-09-20 18:05 | HP ---
Date of Admission: 09/17/2018 Chief Complaint: Inability to walk, back pain. History Of Present Illness: The patient has had the above-outlined symptoms with increasing severity over the past 2 weeks. She has been in the ER, seen in the office. A steroid shot was administered , shows temporary improvement. However, the pain became increasingly more severe, especially when sh e would try to walk. It was therefore decided to admit her for more intensive care. The patient als o had neck surgery a number of years ago for herniated disk. Past Medical History: The patient had a similar condition approximately 3 years ago, which time spin al stenosis was also diagnosed. However, over a period of time steroid injections, she did improve, been basically asymptomatic until recent episode which she felt was due to picking up some heavier ob ject than she is accustomed to. Family History: Noncontributory. Social History: Nonsmoker, nondrinker. Physical Examination: General: The patient is a short, obese, elderly female, in obvious distress. Vital Signs: Stable. Head and Neck: Normocephalic. Pupils equal, reactive to light and accommodation. Fundi negative. Trachea midline. Thyroid not palpable. ENT: Negative. Chest: Clear to P and A. Cardiovascular: PMI in midclavicular line. Heart sounds normal. Peripheral pulses present and equa l bilaterally. Abdomen: No organomegaly. Bowel sounds present. Extremities: Decreased motion in all direction of the left lower extremity. Upper extremities nba l. Minimal pitting edema bilaterally. Reflexes physiologic on the right, areflexic on the left. De creased strength on the left. Rectal: Deferred. Pelvic: Deferred. Impression: Acute back pain, possibly secondary to spinal stenosis. Plan: The patient will be admitted, placed on IV pain medication, IV muscle relaxant, and steroids. Depending on the results, she may be a candidate for surgical procedure. HR/MODL Voice ID: [id number]
== END 2018-09-20 14:25 | disposition home or self-care (01) ==
LOC: 4TH 13:20
PROVIDERS: ADMIT Family Medicine; ATTEND Family Medicine
DX: M54.9 Dorsalgia, unspecified (principal); E66.9 Obesity, unspecified; Z68.35 Body mass index [BMI] 35.0-35.9, adult
CPT/HCPCS: 36415; 72148; 80048; 81003; 85025; 97162; G0378 ×2; J2270 ×11; J2800 ×3

== ENCOUNTER 2019-01-25 11:57 | Emergency (ER) | payer OTHER ==
[2019-01-25] MEDS ORDERED: MEPERIDINE HCL 25 MG/0.5 ML ONE ×2 (13:02→14:13)
[2019-01-25] MEDS ORDERED: KETOROLAC 30 MG/ML INJ ONE (13:02)
[2019-01-25] MEDS ORDERED: DEXAMETHASONE 10 MG/ML VIAL ONE (13:02)
--- NOTE | 2019-01-25 13:45 | EDPHYS ---
Physician Documentation [facility] Name: Dionne Lindo Age: 78 yrs Sex: Female : 1940 Arrival Date: 01/25/2019 Time: 12:00 Bed 18 Private MD: Tony Anderson ED Physician Neymar Shaffer HPI: 01/25 13:05 This 78 yrs old Female presents to ER via Wheelchair with complaints of rn Sciatica. 13:05 The patient presents with pain that is chronic. The symptoms are located in the low rn back. Onset: The symptoms/episode began/occurred 1 week(s) ago. The pain radiates to the left leg. The problem was sustained without known cause. Modifying factors: The patient symptoms are alleviated by nothing, the patient symptoms are aggravated by any movement. Severity of symptoms: At their worst the symptoms were moderate, in the emergency department the symptoms are unchanged. The patient has experienced similar episodes in the past, chronically. Reports chronic back pain but worse over last week, seen by her back doctor this past week for increased pain, given steroid shot, only helped a little, this pain identical to her previous sciatica pain, no abd pain, no fever, no trauma. Pain radiates down left leg and stops at level of knee. . Historical: - Allergies: 12:35 "all antibiotics"; pt get yeast infection when placed on antibiotics; iw - PMHx: 12:35 Hypertension; Sleep Apnea; Hypokalemia; iw - PSHx: 12:35 bilateral knee sx; Cholecystectomy; neck sx for disc; partial hysterectomy; iw - Immunization history:: Adult Immunizations up to date. - Social history:: Smoking status: Patient/guardian denies using tobacco. - Ebola Screening: : Patient negative for fever greater than or equal to 101.5 degrees Fahrenheit, and additional compatible Ebola Virus Disease symptoms Patient denies exposure to infectious person Patient denies travel to an Ebola-affected area in the 21 days before illness onset No symptoms or risks identified at this time. - Family history:: not pertinent. - Hospitalizations: : No recent hospitalization is reported. ROS: 13:05 Constitutional: Negative for fever, chills, and weight loss, Eyes: Negative for injury, rn pain, redness, and discharge, Neck: Negative for injury, pain, and swelling, Cardiovascular: Negative for chest pain, palpitations, and edema, Respiratory: Negative for shortness of breath, cough, wheezing, and pleuritic chest pain, Abdomen/GI: Negative for abdominal pain, nausea, vomiting, diarrhea, and constipation, Back: + left back pain MS/Extremity: Negative for injury and deformity, Skin: Negative for injury, rash, and discoloration, Neuro: Negative for headache, weakness, numbness, tingling, and seizure. Exam: 13:05 Constitutional: This is a well developed, well nourished patient who is awake, alert, rn appears uncomfortable Abdomen/GI: Soft, non-tender Back: No spinal tenderness. + tender left perilumbar region muscle group, no skin changes, no lesions, no spinal tenderness Skin: Warm, dry with normal turgor. Normal color with no rashes, no lesions, and no evidence of cellulitis. MS/ Extremity: Pulses equal, no cyanosis. Neurovascular intact. Full, normal range of motion. Equal circumference. Neuro: Awake and alert, GCS 15, oriented to person, place, time, and situation. Cranial nerves II-XII grossly intact. Motor strength 5/5 in all extremities. Sensory grossly intact. Cerebellar exam normal. Vital Signs: 12:35 BP 151 / 87; Pulse 74; Resp 16; Temp 97.8; Pulse Ox 98% on R/A; Weight 82.55 kg; Height iw 5 ft. 0 in. (152.40 cm); Pain 10/10; 13:45 BP 148 / 78; Pulse 69; Resp 18; Pulse Ox 99% on R/A; Pain 4/10; em 12:35 Body Mass Index 35.54 (82.55 kg, 152.40 cm) iw MDM: 12:24 Patient medically screened. rn 13:44 Differential diagnosis: chronic back pain, Osteoarthritis sciatica. Data reviewed: rn vital signs, nurses notes, and as a result, I will discharge patient. Counseling: I had a detailed discussion with the patient and/or guardian regarding: the historical points, exam findings, and any diagnostic results supporting the discharge/admit diagnosis, the need for outpatient follow up, to return to the emergency department if symptoms worsen or persist or if there are any questions or concerns that arise at home. Response to treatment: the patient's symptoms have markedly improved after treatment, and as a result, I will discharge patient. Special discussion: I discussed with the patient/guardian in detail that at this point there is no indication for admission to the hospital. It is understood, however, that if the symptoms persist or worsen the patient needs to return immediately for re-evaluation. Based on the history and exam findings, there is no indication for further emergent testing or inpatient evaluation. I discussed with the patient/guardian the need to see the back specialist for further evaluation of the symptoms. 01/25 12:37 Order name: IV Start; Complete Time: 13:09 rn Administered Medications: 13:00 Drug: Demerol - Meperidine 12.5 mg Route: IVP; Site: right antecubital; iw 13:57 Follow up: Response: No adverse reaction; Pain is decreased em 13:00 Drug: TORadol - Ketorolac 15 mg Route: IVP; Site: right antecubital; iw 13:58 Follow up: Response: No adverse reaction; Pain is decreased em 13:00 Drug: Decadron - Dexamethasone 10 mg Route: IVP; Site: right antecubital; iw 13:58 Follow up: Response: No adverse reaction; Marked relief of symptoms em 14:15 Drug: Demerol - Meperidine 12.5 mg Route: IVP; Site: right antecubital; em 14:22 Follow up: Response: No adverse reaction; Pain is decreased em Disposition: 01/25/19 13:45 Discharged to Home. Impression: Sciatica, left side, Low back pain. - Condition is Stable. - Discharge Instructions: Back Pain, Adult, Chronic Back Pain, Musculoskeletal Pain, Sciatica. - Prescriptions for Tylenol- Codeine #3 300-30 mg Oral Tablet - take 1 tablet by ORAL route every 6 hours As needed; 20 tablet. Cyclobenzaprine 10 mg Oral Tablet - take 1 tablet by ORAL route every 8 hours As needed; 30 tablet. Medrol (Jacob) 4 mg Oral Tablets, Dose Pack - take 1 tablet by ORAL route as directed - follow package instructions; 1 packet. - Medication Reconciliation Form, Thank You Letter, Antibiotic Education, Prescription Opioid Use form. - Follow up: Private Physician; When: As needed; Reason: Recheck today's complaints, Re-evaluation by your physician. - Problem is an ongoing problem. - Symptoms have improved. Signatures: Ernst Merida, WOODWORKING CRAFTSMAN WOODWORKING CRAFTSMAN Renata Esqueda, Neymar Elizabeth RN, MD MD retort furnace helper: (The following items were deleted from the chart) 14:32 13:45 01/25/2019 13:45 Discharged to Home. Impression: Sciatica, left side; Low back em pain. Condition is Stable. Forms are Medication Reconciliation Form, Thank You Letter, Antibiotic Education, Prescription Opioid Use. Follow up: Private Physician; When: As needed; Reason: Recheck today's complaints, Re-evaluation by your physician. Problem is an ongoing problem. Symptoms have improved. rn
--- NOTE | 2019-01-25 13:45 | ER ---
Nurse's Notes [facility] Name: Dionne Lindo Age: 78 yrs Sex: Female : 1940 Arrival Date: 01/25/2019 Time: 12:00 Bed 18 Private MD: Tony Anderson Diagnosis: Sciatica, left side;Low back pain Presentation: 01/25 12:30 Presenting complaint: Patient states: left hip pain radiating to left leg, pain across iw whole back, had a steroid shot on Saturday at Dr. Anderson's, started feeling worse yesterday, 10/ pain. Transition of care: patient was not received from another setting of care. Onset of symptoms was January 22, 2019. Risk Assessment: Do you want to hurt yourself or someone else? Patient reports no desire to harm self or others. Initial Sepsis Screen: Does the patient meet any 2 criteria? No. Patient's initial sepsis screen is negative. Does the patient have a suspected source of infection? No. Patient's initial sepsis screen is negative. Care prior to arrival: None. 12:30 Method Of Arrival: Wheelchair iw 12:30 Acuity: KARTHIK 3 iw Historical: - Allergies: 12:35 "all antibiotics"; pt get yeast infection when placed on antibiotics; iw - PMHx: 12:35 Hypertension; Sleep Apnea; Hypokalemia; iw - PSHx: 12:35 bilateral knee sx; Cholecystectomy; neck sx for disc; partial hysterectomy; iw - Immunization history:: Adult Immunizations up to date. - Social history:: Smoking status: Patient/guardian denies using tobacco. - Ebola Screening: : Patient negative for fever greater than or equal to 101.5 degrees Fahrenheit, and additional compatible Ebola Virus Disease symptoms Patient denies exposure to infectious person Patient denies travel to an Ebola-affected area in the 21 days before illness onset No symptoms or risks identified at this time. - Family history:: not pertinent. - Hospitalizations: : No recent hospitalization is reported. Screenin:00 Abuse screen: Denies threats or abuse. Nutritional screening: No deficits noted. em Tuberculosis screening: No symptoms or risk factors identified. Fall Risk None identified. Assessment: 13:00 General: Appears in no apparent distress. uncomfortable, Behavior is calm, cooperative. em Pain: Complains of pain in left lower back Pain currently is 10 out of 10 on a pain scale. Quality of pain is described as radiating, sharp, Pain began 1 day ago. Neuro: Level of Consciousness is awake, alert, obeys commands, Oriented to person, place, time, situation. Cardiovascular: Capillary refill < 3 seconds Patient's skin is warm and dry. Respiratory: Airway is patent Respiratory effort is even, unlabored, Respiratory pattern is regular, symmetrical. GI: Abdomen is flat. : Denies burning with urination. Derm: Skin is intact, is healthy with good turgor, Skin is pink, warm \\T\\ dry. Musculoskeletal: Capillary refill < 3 seconds, Range of motion: intact in all extremities. 13:45 Reassessment: Patient appears in no apparent distress at this time. Patient and/or em family updated on plan of care and expected duration. Pain level reassessed. Patient is alert, oriented x 3, equal unlabored respirations, skin warm/dry/pink. rates pain 4/10 Patient states feeling better. Patient states symptoms have improved. Vital Signs: 12:35 BP 151 / 87; Pulse 74; Resp 16; Temp 97.8; Pulse Ox 98% on R/A; Weight 82.55 kg; Height iw 5 ft. 0 in. (152.40 cm); Pain 10/10; 13:45 BP 148 / 78; Pulse 69; Resp 18; Pulse Ox 99% on R/A; Pain 4/10; em 12:35 Body Mass Index 35.54 (82.55 kg, 152.40 cm) iw ED Course: 12:00 Patient arrived in ED. as 12:00 Tony Anderson MD is Private Physician. as 12:24 Neymar Shaffer MD is Attending Physician. rn 12:34 Triage completed. iw 12:35 Arm band placed on. iw 12:41 Ernst Merida LVN is Primary Nurse. em 13:00 Patient has correct armband on for positive identification. Bed in low position. Call em light in reach. Side rails up X2. Adult w/ patient. Pulse ox on. NIBP on. 13:00 Inserted saline lock: 20 gauge in right antecubital area, using aseptic technique. em 14:32 No provider procedures requiring assistance completed. IV discontinued, intact, em bleeding controlled, No redness/swelling at site. Pressure dressing applied. Administered Medications: 13:00 Drug: Demerol - Meperidine 12.5 mg Route: IVP; Site: right antecubital; iw 13:57 Follow up: Response: No adverse reaction; Pain is decreased em 13:00 Drug: TORadol - Ketorolac 15 mg Route: IVP; Site: right antecubital; iw 13:58 Follow up: Response: No adverse reaction; Pain is decreased em 13:00 Drug: Decadron - Dexamethasone 10 mg Route: IVP; Site: right antecubital; iw 13:58 Follow up: Response: No adverse reaction; Marked relief of symptoms em 14:15 Drug: Demerol - Meperidine 12.5 mg Route: IVP; Site: right antecubital; em 14:22 Follow up: Response: No adverse reaction; Pain is decreased em Outcome: 13:45 Discharge ordered by MD. rn 14:30 Discharged to home via wheelchair. em 14:30 Condition: good 14:30 Discharge instructions given to patient, family, Instructed on discharge instructions, follow up and referral plans. medication usage, Demonstrated understanding of instructions, follow-up care, medications, Prescriptions given X 2. 14:32 Patient left the ED. em Signatures: Ernst Merida, ROSITA PORTERN em Rosalie Rodriguez Irene, RN RN iw Neymar Shaffer MD MD crucible furnace tender: (The following items were deleted from the chart) 12:48 12:35 Resp 16bpm; Pulse Ox 98% RA; Temp 97.8F; 82.55 kg; Height 5 ft. 0 in.; BMI: 35.5; iw Pain 07/09; iw
== END 2019-01-25 14:32 | disposition home or self-care (01) ==
LOC: ER 11:57
DX: M54.32 Sciatica, left side (principal); I10 Essential (primary) hypertension; Z88.1 Allergy status to other antibiotic agents
CPT/HCPCS: J1100; J2175 ×2

== ENCOUNTER 2019-07-11 11:06 | Emergency (ER) | payer OTHER ==
[2019-07-11] MEDS ORDERED: DIAZEPAM 10 MG/2 ML INJ SYRINGE ONE (11:45)
[2019-07-11] MEDS ORDERED: MECLIZINE HCL 12.5 MG TAB ONE (11:45)
[2019-07-11] MEDS ORDERED: ONDANSETRON 4 MG/2 ML VIAL ONE ×2 (11:53→13:26)
[2019-07-11] MEDS ORDERED: FAMOTIDINE 20 MG/2 ML VIAL IV ONE (12:05)
[2019-07-11 12:06] LABS: Basophils % 0.6 % (0-1.3); Hematocrit 42.7 % (36.0-45.0); MPV 8.8 fL (7.6-11.3); RBC Red Blood Cell Count 4.49 M/uL (3.86-4.86)
[2019-07-11 12:13] LABS: Protime INR 1.04
--- NOTE | 2019-07-11 12:14 | RAD REPORT ---
EXAM DESCRIPTION: CT - Head Brain Wo Cont - 07/11/2019 12:06 pm CLINICAL HISTORY: DIZZINESS Headache, drowsiness COMPARISON: Head Brain Wo Cont dated 10/26/2017; HEAD BRAIN W O CONTRAST dated 05/05/2013 TECHNIQUE: All CT scans are performed using dose optimization technique as appropriate and may inclu de automated exposure control or mA/KV adjustment according to patient size. FINDINGS: No intracranial hemorrhage, hydrocephalus or extra-axial fluid collection.Mild generalized brain atrophy is present with mild periventricular and deep white matter chronic microvascular ische josefina changes.No areas of brain edema or evidence of midline shift. The paranasal sinuses and mastoids are clear. The calvarium is intact. IMPRESSION: No acute intracranial abnormality.
--- NOTE | 2019-07-11 12:23 | RAD REPORT ---
EXAM DESCRIPTION: RAD - Chest Single View - 07/11/2019 12:16 pm CLINICAL HISTORY: Dizziness Chest pain. COMPARISON: Chest Single View dated 10/26/2017; Chest Pa And Lat (2 Views) dated 03/16/2016; Chest Sin gle View dated 03/09/2016; CHEST SINGLE VIEW dated 09/13/2015 FINDINGS: Portable technique limits examination quality. The lungs are grossly clear. The heart is upper limit of normal in size. No displaced fractures.Hardw are plate present lower cervical spine. IMPRESSION: No acute intrathoracic process suspected.
[2019-07-11 12:24] LABS: ALT/SGPT 18 U/L (12-78); AST/SGOT 18 U/L (15-37); Albumin 3.9 g/dL (3.4-5.0); Alkaline Phosphatase 82 U/L (45-117); BUN Blood Urea Nitrogen 11 mg/dL (7-18); Bicarbonate 23 mmol/L (21-32); Bilirubin Direct 0.1 mg/dL (0-0.2); Bilirubin Total 0.5 mg/dL (0.2-1.0); Glucose Level 125 mg/dL (74-106); Magnesium 1.7 mg/dL (1.8-2.4); NT PRO-BNP 95 pg/mL (<450); Potassium 3.6 mmol/L (3.5-5.1); Protein, Total 7.6 g/dL (6.4-8.2); Sodium Level 143 mmol/L (136-145); Troponin (Emerg Dept Use Only) < 0.02 ng/mL (0.0-0.045)
--- NOTE | 2019-07-11 13:07 | RAD REPORT ---
EXAM DESCRIPTION: CT - Head angio - 07/11/2019 12:56 pm CLINICAL HISTORY: DIZZINESS Headache, drowsiness COMPARISON: Head Brain Wo Cont dated 07/11/2019; Head Brain Wo Cont dated 10/26/2017 TECHNIQUE: CT angiography of the head was performed with MIPs. All CT scans are performed using dose optimization technique as appropriate and may include automated exposure control or mA/KV adjustment according to patient size. FINDINGS: No evidence of aneurysm is detected. No flow-limiting stenosis or vascular malformation id entified. Antegrade flow is seen in the vertebral arteries. The vertebral arteries are codominant. The visualized dural venous sinuses are patent. IMPRESSION: No significant flow abnormality is detected.
--- NOTE | 2019-07-11 13:09 | RAD REPORT ---
EXAM DESCRIPTION: CT - Neck Angio - 07/11/2019 12:56 pm CLINICAL HISTORY: Dizziness Headache, drowsiness, syncope COMPARISON: <Comparisons> TECHNIQUE: CT angiography of the neck vessels was performed with MIPs. All CT scans are performed using dose optimization technique as appropriate and may include automated exposure control or mA/KV adjustment according to patient size. FINDINGS: A left aortic arch is identified with normal three vessel configuration of the great vesse ls. No significant flow abnormality is seen of the common carotid bilaterally. No significant stenosis is identified involving the cervical segments of both internal carotid arteri es. Mild hard plaquing is seen in both carotid bulbs. Normal flow is seen within both vertebral arteries. IMPRESSION: No significant flow abnormality of the neck vessels is identified.
--- NOTE | 2019-07-11 13:40 | ER ---
Nurse's Notes [facility] Name: Dionne Lindo Age: 78 yrs Sex: Female : 1940 Arrival Date: 07/11/2019 Time: 11:09 Bed 17 Private MD: Tony Anderson Diagnosis: Vertiginous syndromes in diseases classified elsewhere;Dizziness and giddiness Presentation: 07/11 11:40 Presenting complaint: Patient states: yesterday evening pt was feeling queasy, this iw morning woke up at 0815 and felt like the room was spinning, started vomiting, vomited BP meds. Transition of care: patient was not received from another setting of care. Onset of symptoms was July 11, 2019. Risk Assessment: Do you want to hurt yourself or someone else? Patient reports no desire to harm self or others. Initial Sepsis Screen: Does the patient meet any 2 criteria? No. Patient's initial sepsis screen is negative. Does the patient have a suspected source of infection? No. Patient's initial sepsis screen is negative. Care prior to arrival: None. 11:40 Method Of Arrival: Wheelchair iw 11:40 Acuity: KARTHIK 3 iw Historical: - Allergies: 11:43 "all antibiotics"; pt get yeast infection when placed on antibiotics; iw - Home Meds: 11:43 losartan 100 mg Oral tab 1 tab once daily [Active]; potassium chloride 20 mEq Oral TbER iw 1 tab once daily [Active]; amlodipine 5 mg tab 1 tab once daily [Active]; zolpidem 10 mg oral tab once daily [Active]; - PMHx: 11:43 Hypertension; Hypokalemia; Sleep Apnea; iw - PSHx: 11:43 bilateral knee sx; Cholecystectomy; neck sx for disc; partial hysterectomy; iw - Ebola Screening: : Patient negative for fever greater than or equal to 101.5 degrees Fahrenheit, and additional compatible Ebola Virus Disease symptoms Patient denies exposure to infectious person Patient denies travel to an Ebola-affected area in the 21 days before illness onset No symptoms or risks identified at this time. Screenin:50 Abuse screen: Denies threats or abuse. Nutritional screening: No deficits noted. em Tuberculosis screening: No symptoms or risk factors identified. Fall Risk None identified. Assessment: 11:50 General: Appears uncomfortable, Behavior is calm, cooperative, Denies fever. Pain: em Denies pain. Neuro: Level of Consciousness is awake, alert, obeys commands, Oriented to person, place, time, situation, Appropriate for age Reports dizziness. Cardiovascular: Denies chest pain, Capillary refill < 3 seconds Patient's skin is warm and dry. Respiratory: Airway is patent Respiratory effort is even, unlabored, Respiratory pattern is regular, symmetrical. GI: Abdomen is round non-distended, Pt is actively vomiting bile, Bowel sounds present X 4 quads. Abd is soft and non tender X 4 quads. Reports nausea, vomiting. Derm: Skin is intact, is healthy with good turgor, Skin is pink, warm \\T\\ dry. Musculoskeletal: Capillary refill < 3 seconds, Range of motion: intact in all extremities. 12:49 Reassessment: Patient appears in no apparent distress at this time. Patient and/or em family updated on plan of care and expected duration. Pain level reassessed. Patient is alert, oriented x 3, equal unlabored respirations, skin warm/dry/pink. Patient states feeling better. Patient states symptoms have improved. 13:36 Reassessment: Patient appears in no apparent distress at this time. Patient and/or em family updated on plan of care and expected duration. Pain level reassessed. Patient is alert, oriented x 3, equal unlabored respirations, skin warm/dry/pink. ambulated about 20-30 feet, tolerated well, denies dizziness, family at bedside reports comfortable being discharged, provider notified Patient states feeling better. Patient states symptoms have improved. Vital Signs: 11:43 BP 157 / 72; Pulse 95; Resp 16 S; Temp 97.6; Pulse Ox 98% on R/A; iw 12:40 BP 141 / 62; Pulse 91; Resp 18; Pulse Ox 97% on R/A; Pain 0/10; iw ED Course: 11:09 Patient arrived in ED. mr 11:09 Tony Anderson MD is Private Physician. mr 11:18 Austin Grace MD is Attending Physician. kdr 11:34 Ernst Merida LVN is Primary Nurse. em 11:41 Triage completed. iw 11:43 Arm band placed on. iw 11:50 Patient has correct armband on for positive identification. Placed in gown. Bed in low em position. Call light in reach. Side rails up X2. Adult w/ patient. school lunch monitor on. Pulse ox on. NIBP on. 11:50 Initial lab(s) drawn, by me, sent to lab. Inserted saline lock: 22 gauge in right em antecubital area, using aseptic technique. Blood collected. 12:06 CT Head Brain wo Cont In Process Unspecified. EDMS 12:16 XRAY Chest (1 view) In Process Unspecified. EDMS 12:55 CT Head Angio In Process Unspecified. EDMS 12:56 CT Neck Angio In Process Unspecified. EDMS 12:56 CT completed. Patient tolerated procedure well. Patient moved back from CT. bq 13:37 Tony Anderson MD is Referral Physician. kdr 13:38 Armaan Hong MD is Referral Physician. kdr 14:14 No provider procedures requiring assistance completed. IV discontinued, intact, em bleeding controlled, No redness/swelling at site. Pressure dressing applied. Administered Medications: 11:54 Drug: Zofran 4 mg Route: IVP; Site: right antecubital; iw 12:39 Follow up: Response: No adverse reaction; Nausea is decreased iw 11:56 Drug: Valium 2 mg Route: IVP; Site: right antecubital; iw 12:39 Follow up: Response: No adverse reaction; Marked relief of symptoms iw 12:24 Drug: Meclizine 25 mg Route: PO; em 12:38 Follow up: Response: No adverse reaction; Marked relief of symptoms iw 12:24 Drug: Pepcid 20 mg Route: IVP; Site: right antecubital; iw 12:39 Follow up: Response: No adverse reaction; Marked relief of symptoms iw 13:30 Drug: Zofran 4 mg Route: IVP; Site: right antecubital; em 13:50 Follow up: Response: No adverse reaction; Nausea is decreased em Outcome: 13:39 Discharge ordered by . kdr 14:14 Discharged to home ambulatory, with family. em 14:14 Condition: good 14:14 Discharge instructions given to patient, family, Instructed on discharge instructions, follow up and referral plans. medication usage, Demonstrated understanding of instructions, follow-up care, medications, Prescriptions given X 2. 14:17 Patient left the ED. iw Signatures: Dispatcher [employer] EDMS Austin Grace MD MD kdr Rivera, Mary mr Qukarthik, Lizzy bq Merida, Ernst, CHEMISTS CHEMISTS Renata Esqueda, RN RN iw
--- NOTE | 2019-07-11 13:41 | EDPHYS ---
Physician Documentation [facility] Name: Dionne Lindo Age: 78 yrs Sex: Female : 1940 Arrival Date: 07/11/2019 Time: 11:09 Bed 17 Private MD: Tony Anderson ED Physician Austin Grace HPI: 07/11 12:27 This 78 yrs old Female presents to ER via Wheelchair with complaints of kdr Abdominal Pain, Vomiting, Dizziness. 12:27 The patient presents with dizziness, generalized weakness, sense of spinning, vertigo. kdr Onset: The symptoms/episode began/occurred yesterday. Context: occurred at home, occurred while the patient was at rest, just prior to the episode the patient experienced no apparent symptoms. Modifying factors: The symptoms are alleviated by holding head still, lying down, Only partial relief, the symptoms are aggravated by movement of head, standing up, changing position. Associated signs and symptoms: Pertinent positives: ataxia, headache, nausea, vomiting, Pertinent negatives: abdominal pain, agitation, chest pain, combativeness, confusion, diaphoresis, focal weakness, head injury, near-syncope, numbness, palpitations, , seizure, syncope, tingling. Severity of symptoms: At their worst the symptoms were moderate severe in the emergency department the symptoms have improved mildly. Patient's baseline: Neuro: alert and fully oriented, Motor: no deficits, Ambulation: walks without assistance, Speech: normal, The patient has a previous history of chronic drug use. The patient has not experienced similar symptoms in the past. The patient has not recently seen a physician. Historical: - Allergies: 11:43 "all antibiotics"; pt get yeast infection when placed on antibiotics; iw - Home Meds: 11:43 losartan 100 mg Oral tab 1 tab once daily [Active]; potassium chloride 20 mEq Oral TbER iw 1 tab once daily [Active]; amlodipine 5 mg tab 1 tab once daily [Active]; zolpidem 10 mg oral tab once daily [Active]; - PMHx: 11:43 Hypertension; Hypokalemia; Sleep Apnea; iw - PSHx: 11:43 bilateral knee sx; Cholecystectomy; neck sx for disc; partial hysterectomy; iw - Ebola Screening: : Patient negative for fever greater than or equal to 101.5 degrees Fahrenheit, and additional compatible Ebola Virus Disease symptoms Patient denies exposure to infectious person Patient denies travel to an Ebola-affected area in the 21 days before illness onset No symptoms or risks identified at this time. ROS: 12:27 Constitutional: Negative for fever, chills, and weight loss, Eyes: Negative for injury, kdr pain, redness, and discharge, ENT: Negative for injury, pain, and discharge, Neck: Negative for injury, pain, and swelling, Cardiovascular: Negative for chest pain, palpitations, and edema, Respiratory: Negative for shortness of breath, cough, wheezing, and pleuritic chest pain, Abdomen/GI: Negative for abdominal pain, nausea, vomiting, diarrhea, and constipation, Back: Negative for injury and pain, : Negative for injury, bleeding, discharge, and swelling, MS/Extremity: Negative for injury and deformity, Skin: Negative for injury, rash, and discoloration, Psych: Negative for depression, anxiety, suicide ideation, homicidal ideation, and hallucinations, Allergy/Immunology: Negative for hives, rash, and allergies, Endocrine: Negative for neck swelling, polydipsia, polyuria, polyphagia, and marked weight changes, Hematologic/Lymphatic: Negative for swollen nodes, abnormal bleeding, and unusual bruising. 12:27 Neuro: Positive for dizziness, headache, Negative for numbness, seizure activity, speech changes, syncope, near syncope, tingling, tinnitus, tremor, visual changes, weakness. Exam: 12:27 Constitutional: This is a well developed, well nourished patient who is awake, alert, kdr and in no acute distress. Head/Face: Normocephalic, atraumatic. Eyes: Pupils equal round and reactive to light, extra-ocular motions intact. Lids and lashes normal. Conjunctiva and sclera are non-icteric and not injected. Cornea within normal limits. Periorbital areas with no swelling, redness, or edema. ENT: Nares patent. No nasal discharge, no septal abnormalities noted. Tympanic membranes are normal and external auditory canals are clear. Oropharynx with no redness, swelling, or masses, exudates, or evidence of obstruction, uvula midline. Mucous membranes moist. Neck: Trachea midline, no thyromegaly or masses palpated, and no cervical lymphadenopathy. Supple, full range of motion without nuchal rigidity, or vertebral point tenderness. No Meningismus. Chest/axilla: Normal chest wall appearance and motion. Nontender with no deformity. No lesions are appreciated. Cardiovascular: Regular rate and rhythm with a normal S1 and S2. No gallops, murmurs, or rubs. Normal PMI, no JVD. No pulse deficits. Respiratory: Lungs have equal breath sounds bilaterally, clear to auscultation and percussion. No rales, rhonchi or wheezes noted. No increased work of breathing, no retractions or nasal flaring. Abdomen/GI: Soft, non-tender, with normal bowel sounds. No distension or tympany. No guarding or rebound. No evidence of tenderness throughout. Back: No spinal tenderness. No costovertebral tenderness. Full range of motion. Skin: Warm, dry with normal turgor. Normal color with no rashes, no lesions, and no evidence of cellulitis. MS/ Extremity: Pulses equal, no cyanosis. Neurovascular intact. Full, normal range of motion. Psych: Awake, alert, with orientation to person, place and time. Behavior, mood, and affect are within normal limits. 12:27 Eyes: Nystagmus: nystagmus with fast component noted, bilaterally, Fast to the left . 12:27 Neuro: Orientation: is normal, Mentation: is normal, Memory: is normal, Cerebellar function: Motor: Sensation: Gait: Deep tendon reflexes are seizure activity. Vital Signs: 11:43 BP 157 / 72; Pulse 95; Resp 16 S; Temp 97.6; Pulse Ox 98% on R/A; iw 12:40 BP 141 / 62; Pulse 91; Resp 18; Pulse Ox 97% on R/A; Pain 0/10; iw MDM: 12:27 Data reviewed: vital signs, nurses notes, lab test result(s), radiologic studies. kdr Counseling: I had a detailed discussion with the patient and/or guardian regarding: the historical points, exam findings, and any diagnostic results supporting the discharge/admit diagnosis, lab results, radiology results. 13:39 Patient medically screened. kdr 07/11 11:41 Order name: Basic Metabolic Panel; Complete Time: 12:26 kdr 07/11 11:41 Order name: CBC with Diff; Complete Time: 12:23 kdr 07/11 11:41 Order name: LFT's; Complete Time: 12:26 kdr 07/11 11:41 Order name: Magnesium; Complete Time: 12:26 kdr 07/11 11:41 Order name: NT PRO-BNP; Complete Time: 12:26 kdr 07/11 11:41 Order name: PT-INR; Complete Time: 12:23 kdr 07/11 11:41 Order name: Troponin (emerg Dept Use Only); Complete Time: 12:26 kdr 07/11 11:41 Order name: XRAY Chest (1 view); Complete Time: 12:26 kdr 07/11 11:41 Order name: CT Head Brain wo Cont; Complete Time: 12:23 kdr 07/11 12:26 Order name: CT Head Angio; Complete Time: 13:16 kdr 07/11 12:26 Order name: CT Neck Angio; Complete Time: 13:16 kdr 07/11 11:41 Order name: EKG; Complete Time: 11:41 kdr 07/11 11:41 Order name: Cardiac monitoring; Complete Time: 12:16 kdr 07/11 11:41 Order name: EKG - Nurse/Tech; Complete Time: 12:16 kdr 07/11 11:41 Order name: IV Saline Lock; Complete Time: 12:16 kdr 07/11 11:41 Order name: Labs collected and sent; Complete Time: 12:16 kdr 07/11 11:41 Order name: O2 Per Protocol; Complete Time: 12:16 kdr 07/11 11:41 Order name: O2 Sat Monitoring; Complete Time: 12:16 kdr Administered Medications: 11:54 Drug: Zofran 4 mg Route: IVP; Site: right antecubital; iw 12:39 Follow up: Response: No adverse reaction; Nausea is decreased iw 11:56 Drug: Valium 2 mg Route: IVP; Site: right antecubital; iw 12:39 Follow up: Response: No adverse reaction; Marked relief of symptoms iw 12:24 Drug: Meclizine 25 mg Route: PO; em 12:38 Follow up: Response: No adverse reaction; Marked relief of symptoms iw 12:24 Drug: Pepcid 20 mg Route: IVP; Site: right antecubital; iw 12:39 Follow up: Response: No adverse reaction; Marked relief of symptoms iw 13:30 Drug: Zofran 4 mg Route: IVP; Site: right antecubital; em 13:50 Follow up: Response: No adverse reaction; Nausea is decreased em Disposition: 07/11/19 13:39 Discharged to Home. Impression: Vertiginous syndromes in diseases classified elsewhere, Dizziness and giddiness. - Condition is Stable. - Discharge Instructions: Vertigo, [id number], Dizziness, [id number]. - Prescriptions for Meclizine 25 mg Oral Tablet - take 1 tablet by ORAL route every 8 hours As needed; 15 tablet. Valium 2 mg Oral Tablet - take 1 tablet by ORAL route every 8 hours As needed May use these tablets if needed when Meclizine is not working; 12 tablet. - Medication Reconciliation Form, Thank You Letter form. - Follow up: Tony Anderson MD; When: 2 - 3 days; Reason: If symptoms return, Further diagnostic work-up, Recheck today's complaints, Continuance of care, Re-evaluation by your physician. Follow up: Armaan Hong MD; When: 2 - 3 days; Reason: If symptoms return, Further diagnostic work-up, Recheck today's complaints, Continuance of care, Re-evaluation by your physician. - Problem is new. - Symptoms have improved. Signatures: Dispatcher [employer] EDWV Austin Grace MD MD [facility] Ernst Merida, REPORT ANALYST REPORT ANALYST Renata Mayer RN RN iw Corrections: (The following items were deleted from the chart) 14:17 13:39 07/11/2019 13:39 Discharged to Home. Impression: Vertiginous syndromes in iw diseases classified elsewhere; Dizziness and giddiness. Condition is Stable. Forms are Medication Reconciliation Form, Thank You Letter, Antibiotic Education, Prescription Opioid Use. Follow up: Tony Anderson; When: 2 - 3 days; Reason: If symptoms return, Further diagnostic work-up, Recheck today's complaints, Continuance of care, Re-evaluation by your physician. Follow up: Armaan Hong; When: 2 - 3 days; Reason: If symptoms return, Further diagnostic work-up, Recheck today's complaints, Continuance of care, Re-evaluation by your physician. Problem is new. Symptoms have improved. kdr
[2019-07-11 14:26] VITALS: TEMP 97.6
[2019-07-11 14:27] VITALS: BP 141/62; O2SAT 97
--- NOTE | 2019-07-12 13:05 | EKG ---
Test Date: 2019-07-11 Test Time: 12:15:37 Surgical Instrument Mechanic: HUANG MEASUREMENT RESULTS: Intervals: Rate: 95 MI: 128 QRSD: 80 QT: 356 QTc: 447 [place]: P: 66 MI: 128 QRS: 43 T: 71 INTERPRETIVE STATEMENTS: Normal sinus rhythm Nonspecific T wave abnormality Abnormal ECG Compared to ECG 07/02/2018 23:05:33 No significant changes Electronically Signed On 07-12-19 13:03:36 CDT by Quinten Abdullahi
== END 2019-07-11 14:17 | disposition home or self-care (01) ==
LOC: ER 11:06
DX: R42 Dizziness and giddiness (principal); H82.9 Vertiginous syndromes in diseases classified elsewhere, unspecified ear; I10 Essential (primary) hypertension; E87.6 Hypokalemia; Z88.1 Allergy status to other antibiotic agents
CPT/HCPCS: 93005; 85025; 80048; 36415; 83735; 85610; 80076; 84484; 83880; 70450; 70496; 70498; 71045; 96375; 96374; 99285; Q9967; J3360; J2405 ×2; J8597

== ENCOUNTER 2019-09-12 09:14 | Emergency (ER) | payer OTHER ==
--- OUTSIDE RECORDS SUMMARY | 2019-09-12 09:16 | XMS REPORT ---
:1940 [facility] [address] [place] [address] Dr. Holbrook [address] [place] [id number] Care Team Providers Name Role Phone Unavailable Unavailable Unavailable Problems This patient has no known problems. Allergies, Adverse Reactions, Alerts This patient has no known allergies or adverse reactions. Medications This patient has no known medications.
[2019-09-12] MEDS ORDERED: HYDROCODONE/APAP 7.5/325 MG TAB ONE (09:55)
[2019-09-12] MEDS ORDERED: DOXYCYCLINE 100 MG CAP PO ONE (09:55)
[2019-09-12] MEDS ORDERED: SMZ./TMP. 800/160 MG TABLET ONE (09:55)
[2019-09-12] MEDS ORDERED: IBUPROFEN 400 MG TAB ONE (09:55)
--- NOTE | 2019-09-12 10:22 | RAD REPORT ---
EXAM DESCRIPTION: RAD - Foot Right 3 View - 09/12/2019 10:16 am CLINICAL HISTORY: PAIN COMPARISON: Foot Right 3 View dated 09/24/2016 FINDINGS: The bones are demineralized mildly. No acute fracture or dislocation seen. Mild soft tissu e swelling is seen along the dorsum of the forefoot. Small plantar calcaneal spur evident.
--- NOTE | 2019-09-12 10:29 | ER ---
Nurse's Notes [facility] Name: Dionne Lindo Age: 79 yrs Sex: Female : 1940 Arrival Date: 09/12/2019 Time: 09:16 Bed 2 Private MD: Tony Anderson Diagnosis: Cellulitis and acute lymphangitis of other parts of limb-dorsal right foot Presentation: 09/12 09:25 Presenting complaint: Patient states: pain to top of right foot started Saturday, tender iw to palpation and has increased swelling , denies injury, +hx of arthritis. Transition of care: patient was not received from another setting of care. Onset of symptoms was September 08, 2019. Risk Assessment: Do you want to hurt yourself or someone else? Patient reports no desire to harm self or others. Initial Sepsis Screen: Does the patient meet any 2 criteria? HR > 90 bpm. Does the patient have a suspected source of infection? No. Patient's initial sepsis screen is negative. Care prior to arrival: None. 09:25 Method Of Arrival: Wheelchair iw 09:25 Acuity: KARTHIK 3 iw Triage Assessment: 09:30 General: Appears in no apparent distress. uncomfortable, Behavior is cooperative, bp appropriate for age, anxious. Pain: Complains of pain in right foot. EENT: No deficits noted. Neuro: No deficits noted. Cardiovascular: No deficits noted. Respiratory: No deficits noted. GI: No signs and/or symptoms were reported involving the gastrointestinal system. : No signs and/or symptoms were reported regarding the genitourinary system. Derm: No deficits noted. Musculoskeletal: Swelling present in right foot. Historical: - Allergies: : "all antibiotics"; pt get yeast infection when placed on antibiotics; iw - Home Meds: : Ambien Oral [Active]; amlodipine 5 mg tab 1 tab once daily [Active]; losartan 100 mg iw Oral tab 1 tab once daily [Active]; potassium chloride 20 mEq Oral TbER 1 tab once daily [Active]; zolpidem 10 mg Oral tab once daily [Active]; - PMHx: : Hypertension; Hypokalemia; Sleep Apnea; iw - PSHx: bilateral knee sx; Cholecystectomy; neck sx for disc; partial hysterectomy; iw - Immunization history:: Adult Immunizations not up to date. - Social history:: Smoking status: Patient/guardian denies using tobacco. - Ebola Screening: : Patient negative for fever greater than or equal to 101.5 degrees Fahrenheit, and additional compatible Ebola Virus Disease symptoms Patient denies exposure to infectious person Patient denies travel to an Ebola-affected area in the 21 days before illness onset No symptoms or risks identified at this time. - Family history:: not pertinent. Screenin:04 Abuse screen: Denies threats or abuse. Denies injuries from another. Nutritional bp screening: No deficits noted. Tuberculosis screening: No symptoms or risk factors identified. Fall Risk None identified. Assessment: 09:30 General: SEE TRIAGE NOTE. bp 10:49 Reassessment: D/C ON HOLD FOR PROVIDER RE-EVAL. bp 11:50 Reassessment: NO FURTHER S/S ACUTE DISTRESS, PT CLEARED FOR D/C. PT D/C HOME VIA W/C bp WITH FAMILY, DX WITH CELLULITIS OF FOOT. Vital Signs: 09:27 BP 148 / 71; Pulse 99; Resp 18 S; Temp 98.4; Pulse Ox 97% on R/A; Weight 82.55 kg; iw Height 5 ft. 0 in. (152.40 cm); Pain 8/10; 09:40 BP 161 / 88; Pulse 102; Resp 20; Temp 98.5; Pulse Ox 99% on R/A; Pain 10/10; em1 10:30 BP 141 / 69; Pulse 96; Resp 18; Pulse Ox 98% on R/A; vc 09:27 Body Mass Index 35.54 (82.55 kg, 152.40 cm) iw ED Course: 09:16 Patient arrived in ED. ag5 09:16 Tony Anderson MD is Private Physician. ag5 09:27 Triage completed. iw 09:27 Arm band placed on. iw 09:30 Delmar Bonilla MD is Attending Physician. dragan 09:34 Jack David, ANMOL is Primary Nurse. bp 10:04 Patient has correct armband on for positive identification. Bed in low position. Call bp light in reach. Side rails up X2. 10:16 Foot Right 3 View XRAY In Process Unspecified. EDMS 10:28 Tony Anderson MD is Referral Physician. dragan 11:51 No provider procedures requiring assistance completed. Patient did not have IV access bp during this emergency room visit. Administered Medications: 09:55 Drug: Bactrim (160 mg-800 mg (DS) 1 tablet Route: PO; bp 10:49 Follow up: Response: No adverse reaction bp 09:55 Drug: Doxycycline 200 mg Route: PO; bp 10:48 Follow up: Response: No adverse reaction bp 09:55 Drug: Motrin 600 mg Route: PO; bp 10:48 Follow up: Response: Pain is decreased bp 09:55 Drug: Tarzan (7.5 mg-325 mg) 1 tabs Route: PO; bp 10:48 Follow up: Response: Pain is decreased bp 10:49 Drug: Zofran 4 mg Route: PO; bp 10:49 Follow up: Response: No adverse reaction bp 11:15 Drug: Zofran 4 mg Route: PO; bp 11:40 Follow up: Response: Nausea is decreased bp Point of Care Testing: Blood Glucose: 10:03 Blood Glucose: 123 mg/dL; bp Ranges: Outcome: 10:28 Discharge ordered by MD. archibald 11:51 Discharged to home via wheelchair, with family. bp 11:51 Condition: stable 11:51 Discharge instructions given to patient, family, Instructed on discharge instructions, follow up and referral plans. medication usage, Demonstrated understanding of instructions, follow-up care, medications, Prescriptions given X 5 11:51 Patient left the ED. bp Signatures: Dispatcher [employer] Delmar Moyer MD MD cha Williams, Irene, Rock Morrison RN em1 Jack David RN RN bp Gaskin, Ajare ag5 Shey Vizcaino RN RN vc
--- NOTE | 2019-09-12 10:29 | EDPHYS ---
Physician Documentation [facility] Name: Dionne Lindo Age: 79 yrs Sex: Female : 1940 Arrival Date: 09/12/2019 Time: 09:16 Bed 2 Private MD: Tony Anderson ED Physician Delmar Bonilla HPI: 09/12 09:40 This 79 yrs old Female presents to ER via Wheelchair with complaints of Foot dragan Pain. 09:40 The patient presents with decreased range of motion, pain. The complaints affect the dragan right foot. Context: resulted from an unknown cause, Mechanism of Injury: Unknown the patient can partially bear weight. Onset: The symptoms/episode began/occurred 2 day(s) ago. Modifying factors: The symptoms are alleviated by elevation of extremity, the symptoms are aggravated by weight bearing, movement. Associated signs and symptoms: The patient has no apparent associated signs or symptoms. Severity of symptoms: At their worst the symptoms were moderate, in the emergency department the symptoms are unchanged. The patient has not experienced similar symptoms in the past. Historical: - Allergies: :27 "all antibiotics"; pt get yeast infection when placed on antibiotics; iw - Home Meds: 09:27 Ambien Oral [Active]; amlodipine 5 mg tab 1 tab once daily [Active]; losartan 100 mg iw Oral tab 1 tab once daily [Active]; potassium chloride 20 mEq Oral TbER 1 tab once daily [Active]; zolpidem 10 mg Oral tab once daily [Active]; - PMHx: 09:27 Hypertension; Hypokalemia; Sleep Apnea; iw - PSHx: :27 bilateral knee sx; Cholecystectomy; neck sx for disc; partial hysterectomy; iw - Immunization history:: Adult Immunizations not up to date. - Social history:: Smoking status: Patient/guardian denies using tobacco. - Ebola Screening: : Patient negative for fever greater than or equal to 101.5 degrees Fahrenheit, and additional compatible Ebola Virus Disease symptoms Patient denies exposure to infectious person Patient denies travel to an Ebola-affected area in the 21 days before illness onset No symptoms or risks identified at this time. - Family history:: not pertinent. ROS: 09:40 Constitutional: Negative for fever, chills, and weight loss, Eyes: Negative for injury, dragan pain, redness, and discharge, ENT: Negative for injury, pain, and discharge, Neck: Negative for injury, pain, and swelling, Cardiovascular: Negative for chest pain, palpitations, and edema, Respiratory: Negative for shortness of breath, cough, wheezing, and pleuritic chest pain, Abdomen/GI: Negative for abdominal pain, nausea, vomiting, diarrhea, and constipation, Back: Negative for injury and pain, : Negative for injury, bleeding, discharge, and swelling, Skin: Negative for injury, rash, and discoloration, Neuro: Negative for headache, weakness, numbness, tingling, and seizure, Psych: Negative for depression, anxiety, suicide ideation, homicidal ideation, and hallucinations, Allergy/Immunology: Negative for hives, rash, and allergies, Endocrine: Negative for neck swelling, polydipsia, polyuria, polyphagia, and marked weight changes, Hematologic/Lymphatic: Negative for swollen nodes, abnormal bleeding, and unusual bruising. 09:40 MS/extremity: Positive for decreased range of motion, pain, swelling, tenderness, warmth, of the lateral aspect of right foot, medial aspect of right foot and dorsum of right foot. Exam: 09:40 Constitutional: This is a well developed, well nourished patient who is awake, alert, dragan and in no acute distress. Head/Face: Normocephalic, atraumatic. Eyes: Pupils equal round and reactive to light, extra-ocular motions intact. Lids and lashes normal. Conjunctiva and sclera are non-icteric and not injected. Cornea within normal limits. Periorbital areas with no swelling, redness, or edema. ENT: Nares patent. No nasal discharge, no septal abnormalities noted. Tympanic membranes are normal and external auditory canals are clear. Oropharynx with no redness, swelling, or masses, exudates, or evidence of obstruction, uvula midline. Mucous membranes moist. Neck: Trachea midline, no thyromegaly or masses palpated, and no cervical lymphadenopathy. Supple, full range of motion without nuchal rigidity, or vertebral point tenderness. No Meningismus. Chest/axilla: Normal chest wall appearance and motion. Nontender with no deformity. No lesions are appreciated. Cardiovascular: Regular rate and rhythm with a normal S1 and S2. No gallops, murmurs, or rubs. Normal PMI, no JVD. No pulse deficits. Respiratory: Lungs have equal breath sounds bilaterally, clear to auscultation and percussion. No rales, rhonchi or wheezes noted. No increased work of breathing, no retractions or nasal flaring. Abdomen/GI: Soft, non-tender, with normal bowel sounds. No distension or tympany. No guarding or rebound. No evidence of tenderness throughout. Back: No spinal tenderness. No costovertebral tenderness. Full range of motion. Neuro: Awake and alert, GCS 15, oriented to person, place, time, and situation. Cranial nerves II-XII grossly intact. Motor strength 5/5 in all extremities. Sensory grossly intact. Cerebellar exam normal. Normal gait. Psych: Awake, alert, with orientation to person, place and time. Behavior, mood, and affect are within normal limits. 09:40 Skin: cellulitis, that is mild, on the lateral aspect of right foot, medial aspect of right foot and dorsum of right foot. Vital Signs: 09:27 BP 148 / 71; Pulse 99; Resp 18 S; Temp 98.4; Pulse Ox 97% on R/A; Weight 82.55 kg; iw Height 5 ft. 0 in. (152.40 cm); Pain 8/10; 09:40 BP 161 / 88; Pulse 102; Resp 20; Temp 98.5; Pulse Ox 99% on R/A; Pain 10/10; em1 10:30 BP 141 / 69; Pulse 96; Resp 18; Pulse Ox 98% on R/A; vc 09:27 Body Mass Index 35.54 (82.55 kg, 152.40 cm) iw MDM: 09:30 Patient medically screened. [facility] 10:29 Data reviewed: vital signs, nurses notes, lab test result(s), radiologic studies. [facility] 09/12 10:14 Order name: Glucose, Ancillary Testing [facility] 09/12 09:40 Order name: Foot Right 3 View XRAY [facility] 09/12 09:40 Order name: Ice pack; Complete Time: 09:59 [facility] 09/12 09:43 Order name: Blood Glucose Level; Complete Time: 10:02 [facility] 09/12 11:09 Order name: PO challenge; Complete Time: 11:11 [facility] Administered Medications: 09:55 Drug: Bactrim (160 mg-800 mg (DS) 1 tablet Route: PO; bp 10:49 Follow up: Response: No adverse reaction bp 09:55 Drug: Doxycycline 200 mg Route: PO; bp 10:48 Follow up: Response: No adverse reaction bp 09:55 Drug: Motrin 600 mg Route: PO; bp 10:48 Follow up: Response: Pain is decreased bp 09:55 Drug: [place] (7.5 mg-325 mg) 1 tabs Route: PO; bp 10:48 Follow up: Response: Pain is decreased bp 10:49 Drug: Zofran 4 mg Route: PO; bp 10:49 Follow up: Response: No adverse reaction bp 11:15 Drug: Zofran 4 mg Route: PO; bp 11:40 Follow up: Response: Nausea is decreased bp Point of Care Testing: Blood Glucose: 10:03 Blood Glucose: 123 mg/dL; bp Ranges: Critical Glucose Levels:Adult <50 mg/dl or >400 mg/dl <40 mg/dl or >180 mg/dl Disposition: 09/12/19 10:28 Discharged to Home. Impression: Cellulitis and acute lymphangitis of other parts of limb - dorsal right foot. - Condition is Stable. - Discharge Instructions: Cellulitis, Adult, Cctp-[id number], Foot Pain. - Prescriptions for Ibuprofen 600 mg Oral Tablet - take 1 tablet by ORAL route every 6 hours As needed take with food; 20 tablet. Tylenol- Codeine #3 300-30 mg Oral Tablet - take 2 tablets by ORAL route every 6 hours As needed; 26 tablet. Doxycycline Hyclate 100 mg Oral Tablet - take 1 tablet by ORAL route every 12 hours; 20 tablet. Bactrim DS 800- 160 mg Oral Tablet - take 1 tablet by ORAL route every 12 hours for 10 days; 20 tablet. Zofran 4 mg Oral Tablet - take 1 tablet by ORAL route every 12 hours As needed; 14 tablet. - Medication Reconciliation Form, Thank You Letter, Antibiotic Education, Prescription Opioid Use form. - Follow up: Tony Anderson; When: 2 - 3 days; Reason: Recheck today's complaints, Continuance of care, Re-evaluation by your physician. - Problem is new. - Symptoms have improved. Signatures: Dispatcher [employer] EDDelmar Luis MD MD cha Williams, Irene, RN RN iw Jack David RN RN bp Corrections: (The following items were deleted from the chart) 11:51 10:28 09/12/2019 10:28 Discharged to Home. Impression: Cellulitis and acute bp lymphangitis of other parts of limb - dorsal right foot. Condition is Stable. Discharge Instructions: Cellulitis, Adult, [id number]-Vvrr, Foot Pain. Prescriptions for Ibuprofen 600 mg Oral Tablet - take 1 tablet by ORAL route every 6 hours As needed take with food; 20 tablet, Tylenol-Codeine #3 300-30 mg Oral Tablet - take 2 tablets by ORAL route every 6 hours As needed; 26 tablet, Doxycycline Hyclate 100 mg Oral Tablet - take 1 tablet by ORAL route every 12 hours; 20 tablet, Bactrim DS 800-160 mg Oral Tablet - take 1 tablet by ORAL route every 12 hours for 10 days; 20 tablet. and Forms are Medication Reconciliation Form, Thank You Letter, Antibiotic Education, Prescription Opioid Use. Follow up: Tony Anderson; When: 2 - 3 days; Reason: Recheck today's complaints, Continuance of care, Re-evaluation by your physician. Problem is new. Symptoms have improved. dragan
[2019-09-12] MEDS ORDERED: ONDANSETRON 4 MG (ODT) TAB ONE ×2 (10:47→11:24)
[2019-09-12 11:58] VITALS: TEMP 98.5
[2019-09-12 11:59] VITALS: BP 141/69; O2SAT 98
== END 2019-09-12 11:51 | disposition home or self-care (01) ==
LOC: ER 09:14
DX: L03.115 Cellulitis of right lower limb (principal); I10 Essential (primary) hypertension
CPT/HCPCS: 82947; 99283

== ENCOUNTER 2019-11-29 14:11 | Emergency (ER) | payer OTHER ==
--- OUTSIDE RECORDS SUMMARY | 2019-11-29 14:14 | XMS REPORT ---
:1940 [facility] Address [address] [place] [address] Dr. Holbrook [address] [place] [id number] Care Team Providers Name Role Phone Unavailable Unavailable Unavailable Problems This patient has no known problems. Allergies, Adverse Reactions, Alerts This patient has no known allergies or adverse reactions. Medications This patient has no known medications.
[2019-11-29] MEDS ORDERED: predniSONE 20 MG TAB ONE (15:36)
[2019-11-29] MEDS ORDERED: LIDOCAINE 4% PATCH ONE (15:36)
[2019-11-29] MEDS ORDERED: FENTANYL CITR 100 MCG/2 ML ONE (15:36)
--- NOTE | 2019-11-29 16:16 | ER ---
Nurse's Notes [facility] Name: Dionne Lindo Age: 79 yrs Sex: Female : 1940 Arrival Date: 11/29/2019 Time: 14:11 Bed 15 Private MD: Tony Anderson Diagnosis: Lumbago with sciatica Presentation: 11/28 14:45 Chief complaint: Patient states: right hip pain radiating to left hip, started X 3 days iw ago, denies injury, feels like arthritis, hasn;t been able to sleep, has been takingtramadol, motrin and using Aspercreme. Coronavirus screen: The patient has NOT traveled to [place] in the past 14 days. Proceed with normal triage procedures. Ebola Screen: Patient negative for fever greater than or equal to 101.5 degrees Fahrenheit, and additional compatible Ebola Virus Disease symptoms Patient denies exposure to infectious person. Patient denies travel to an Ebola-affected area in the 21 days before illness onset. No symptoms or risks identified at this time. Initial Sepsis Screen: Does the patient meet any 2 criteria? No. Patient's initial sepsis screen is negative. Does the patient have a suspected source of infection? No. Patient's initial sepsis screen is negative. Risk Assessment: Do you want to hurt yourself or someone else? Patient reports no desire to harm self or others. 14:45 Method Of Arrival: Wheelchair iw 14:45 Acuity: KARTHIK 4 iw 15:00 Onset of symptoms was November 29, 2019. ca1 Historical: - Allergies: 14:48 "all antibiotics"; pt get yeast infection when placed on antibiotics; iw - Home Meds: 14:48 Ambien Oral [Active]; amlodipine 5 mg tab 1 tab once daily [Active]; losartan 100 mg iw Oral tab 1 tab once daily [Active]; potassium chloride 20 mEq Oral TbER 1 tab once daily [Active]; zolpidem 10 mg Oral tab once daily [Active]; - PMHx: 14:48 Hypertension; Hypokalemia; Sleep Apnea; iw - PSHx: 14:48 bilateral knee sx; Cholecystectomy; neck sx for disc; partial hysterectomy; back; iw - Immunization history:: Adult Immunizations not up to date. - Social history:: Smoking status: Patient denies any tobacco usage or history of. Screenin:00 Abuse screen: Denies threats or abuse. Denies injuries from another. Nutritional ca1 screening: No deficits noted. Tuberculosis screening: No symptoms or risk factors identified. Fall Risk None identified. Assessment: 15:00 General: Appears in no apparent distress. uncomfortable, Behavior is calm, cooperative, ca1 appropriate for age. Pain: Complains of pain in left lower back and right lower back Pain currently is 8 out of 10 on a pain scale. Pain began 2-3 days ago. Neuro: Level of Consciousness is awake, alert, obeys commands, Oriented to person, place, time, situation, Appropriate for age. Cardiovascular: Heart tones S1 S2 present Capillary refill < 3 seconds Patient's skin is warm and dry. Respiratory: Airway is patent Respiratory effort is even, unlabored, Respiratory pattern is regular, symmetrical, Breath sounds are clear bilaterally. GI: Abdomen is round non-distended, Bowel sounds present X 4 quads. Abd is soft and non tender X 4 quads. : No signs and/or symptoms were reported regarding the genitourinary system. EENT: No signs and/or symptoms were reported regarding the EENT system. Derm: Skin is intact, is healthy with good turgor, Skin is pink, warm \\T\\ dry. Musculoskeletal: Circulation, motion, and sensation intact. Capillary refill < 3 seconds. 16:10 Reassessment: Patient appears in no apparent distress at this time. Patient and/or ca1 family updated on plan of care and expected duration. Pain level reassessed. Patient is alert, oriented x 3, equal unlabored respirations, skin warm/dry/pink. Vital Signs: 14:45 BP 156 / 81; Pulse 91; Resp 16; Pulse Ox 97% on R/A; Weight 82.55 kg; Height 5 ft. 0 iw in. (152.40 cm); Pain 8/10; 16:10 BP 143 / 66; Pulse 77; Resp 16 S; Pulse Ox 96% on R/A; ca1 14:45 Body Mass Index 35.54 (82.55 kg, 152.40 cm) iw ED Course: 14:11 Patient arrived in ED. rg4 14:12 Tony Anderson MD is Private Physician. rg4 14:47 Triage completed. iw 14:48 Arm band placed on. iw 14:49 Chance Mi NP is PHCP. pm1 14:49 Delmar Bonilla MD is Attending Physician. pm1 15:00 Patient has correct armband on for positive identification. Bed in low position. Call ca1 light in reach. Side rails up X2. Pulse ox on. NIBP on. Warm blanket given. 15:00 No provider procedures requiring assistance completed. Patient did not have IV access ca1 during this emergency room visit. 15:27 Carli Rainey RN is Primary Nurse. ca1 Administered Medications: 15:30 Drug: predniSONE 60 mg Route: PO; ca1 16:12 Follow up: Response: No adverse reaction ca1 15:32 Drug: fentaNYL (PF) 25 mcg {Note: RASS - 0.} Route: IM; Site: right deltoid; ca1 16:12 Follow up: Response: No adverse reaction; Pain is decreased; RASS: Alert and Calm (0) ca1 15:34 Drug: Lidoderm 5 % (700 mg/patch) 1 patches Route: Topical; Site: affected area; ca1 16:12 Follow up: Response: No adverse reaction ca1 Outcome: 16:15 Discharge ordered by MD. pm1 16:33 Discharged to home via wheelchair, with family. ca1 16:33 Condition: stable 16:33 Discharge instructions given to patient, Instructed on discharge instructions, follow up and referral plans. medication usage, Demonstrated understanding of instructions, follow-up care, medications, Prescriptions given X 2. 16:33 Patient left the ED. ca1 Signatures: Renata Mayer RN RN iw Chance Mi NP [employer] pm1 Lucina Andre rg4 Carli Rainey RN RN ca1
--- NOTE | 2019-11-29 16:16 | EDPHYS ---
Physician Documentation [facility] Name: Dionne Lindo Age: 79 yrs Sex: Female : 1940 Arrival Date: 11/29/2019 Time: 14:11 Bed 15 Private MD: Tony Anderson ED Physician Delmar Bonilla HPI: 11/28 15:26 This 79 yrs old Female presents to ER via Wheelchair with complaints of Back pm1 Pain. 15:26 The patient presents with pain that is chronic, with no known mechanism of injury. pm1 15:26 The symptoms are located in the low back. Onset: The symptoms/episode began/occurred 3 pm1 day(s) ago. The pain radiates to the bialteral hips. Associated signs and symptoms: Pertinent negatives: abdominal pain, dysuria, fever, headache, incontinence, numbness, tingling, vomiting. The problem was sustained from a chronic condition, degenerative joint disease. Modifying factors: The patient symptoms are alleviated by nothing, usually tramadol helps. Severity of symptoms: in the emergency department the symptoms are actually worse. Historical: - Allergies: 14:48 "all antibiotics"; pt get yeast infection when placed on antibiotics; iw - Home Meds: 14:48 Ambien Oral [Active]; amlodipine 5 mg tab 1 tab once daily [Active]; losartan 100 mg iw Oral tab 1 tab once daily [Active]; potassium chloride 20 mEq Oral TbER 1 tab once daily [Active]; zolpidem 10 mg Oral tab once daily [Active]; - PMHx: 14:48 Hypertension; Hypokalemia; Sleep Apnea; iw - PSHx: 14:48 bilateral knee sx; Cholecystectomy; neck sx for disc; partial hysterectomy; back; iw - Immunization history:: Adult Immunizations not up to date. - Social history:: Smoking status: Patient denies any tobacco usage or history of. ROS: 15:26 Constitutional: Negative for fever, chills, and weight loss, Neck: Negative for injury, pm1 pain, and swelling, Cardiovascular: Negative for chest pain, palpitations, and edema, Respiratory: Negative for shortness of breath, cough, wheezing, and pleuritic chest pain, Abdomen/GI: Negative for abdominal pain, nausea, vomiting, diarrhea, and constipation. 15:26 : Negative for injury, bleeding, discharge, and swelling, MS/Extremity: Negative for injury and deformity, Skin: Negative for injury, rash, and discoloration, Neuro: Negative for headache, weakness, numbness, tingling, and seizure. 15:26 Back: Positive for of the low back area. Exam: 15:26 Constitutional: This is a well developed, well nourished patient who is awake, alert, pm1 and in no acute distress. Head/Face: Normocephalic, atraumatic. Chest/axilla: Normal chest wall appearance and motion. Nontender with no deformity. No lesions are appreciated. Cardiovascular: Regular rate and rhythm with a normal S1 and S2. No gallops, murmurs, or rubs. Normal PMI, no JVD. No pulse deficits. Respiratory: Lungs have equal breath sounds bilaterally, clear to auscultation and percussion. No rales, rhonchi or wheezes noted. No increased work of breathing, no retractions or nasal flaring. Abdomen/GI: Soft, non-tender, with normal bowel sounds. No distension or tympany. No guarding or rebound. No evidence of tenderness throughout. 15:26 Skin: Warm, dry with normal turgor. Normal color with no rashes, no lesions, and no evidence of cellulitis. MS/ Extremity: Pulses equal, no cyanosis. Neurovascular intact. Full, normal range of motion. 15:26 Back: vertebral tenderness, is appreciated at lumbar spine. 15:26 Neuro: Orientation: is normal, Motor: is normal, moves all fours, Sensation: is normal, no obvious gross deficits. Vital Signs: 14:45 BP 156 / 81; Pulse 91; Resp 16; Pulse Ox 97% on R/A; Weight 82.55 kg; Height 5 ft. 0 iw in. (152.40 cm); Pain 8/10; 16:10 BP 143 / 66; Pulse 77; Resp 16 S; Pulse Ox 96% on R/A; ca1 14:45 Body Mass Index 35.54 (82.55 kg, 152.40 cm) iw MDM: 14:50 Patient medically screened. pm1 15:24 Data reviewed: vital signs. Data interpreted: Pulse oximetry: on room air is 97 %. pm1 Interpretation: normal. 16:14 Counseling: I had a detailed discussion with the patient and/or guardian regarding: the pm1 historical points, exam findings, and any diagnostic results supporting the discharge/admit diagnosis, the need for outpatient follow up, for definitive care, a neurosurgeon, a painter assistant, to return to the emergency department if symptoms worsen or persist or if there are any questions or concerns that arise at home. 16:18 ED course: PMPaware: Patient has a prescription for Tramadol for 28 days on 11/12/2019. pm1 No narcotics will be prescribed from ct. Administered Medications: 15:30 Drug: predniSONE 60 mg Route: PO; ca1 16:12 Follow up: Response: No adverse reaction ca1 15:32 Drug: fentaNYL (PF) 25 mcg {Note: RASS - 0.} Route: IM; Site: right deltoid; ca1 16:12 Follow up: Response: No adverse reaction; Pain is decreased; RASS: Alert and Calm (0) ca1 15:34 Drug: Lidoderm 5 % (700 mg/patch) 1 patches Route: Topical; Site: affected area; ca1 16:12 Follow up: Response: No adverse reaction ca1 Disposition: 18:21 Co-signature as Attending Physician, Delmar Bonilla MD I agree with the assessment and [facility] plan of care. Disposition: 11/29/19 16:15 Discharged to Home. Impression: Lumbago with sciatica. - Condition is Stable. - Discharge Instructions: Back Pain, Adult. - Prescriptions for Lidoderm 5 % Topical adhesive patch,medicated - apply 1 patch by TRANSDERMAL route once daily As needed; 30 Transdermal Patch. Medrol (Jacob) 4 mg Oral Tablets, Dose Pack - take 1 tablet by ORAL route as directed - follow package instructions; 1 packet. - Medication Reconciliation Form, Thank You Letter, Antibiotic Education, Prescription Opioid Use form. - Follow up: Emergency Department; When: As needed; Reason: Worsening of condition. Follow up: Private Physician; When: 2 - 3 days; Reason: Recheck today's complaints, Continuance of care, Re-evaluation by your physician. - Problem is new. - Symptoms have improved. Signatures: Delmar Bonilla MD MD cha Williams, Irene, RN RN iw Chance Mi, [employer] pm1 Carli Rainey RN RN ca1 Corrections: (The following items were deleted from the chart) 16:33 16:15 11/29/2019 16:15 Discharged to Home. Impression: Lumbago with sciatica. Condition ca1 is Stable. Forms are Medication Reconciliation Form, Thank You Letter, Antibiotic Education, Prescription Opioid Use. Follow up: Emergency Department; When: As needed; Reason: Worsening of condition. Follow up: Private Physician; When: 2 - 3 days; Reason: Recheck today's complaints, Continuance of care, Re-evaluation by your physician. Problem is new. Symptoms have improved. pm1
[2019-11-29 17:16] VITALS: BP 143/66; O2SAT 96
== END 2019-11-29 16:33 | disposition home or self-care (01) ==
LOC: ER 14:11
DX: M54.40 Lumbago with sciatica, unspecified side (principal); I10 Essential (primary) hypertension
CPT/HCPCS: 96372; 99283; J3010; J7512

== ENCOUNTER 2019-12-27 10:36 | Emergency (ER) | payer OTHER ==
--- OUTSIDE RECORDS SUMMARY | 2019-12-27 10:38 | XMS REPORT ---
:1940 [facility] Address [address] [place] [address] Dr. Holbrook [address] [place] [id number] Care Team Providers Name Role Phone Unavailable Unavailable Unavailable Problems This patient has no known problems. Allergies, Adverse Reactions, Alerts This patient has no known allergies or adverse reactions. Medications This patient has no known medications.
[2019-12-27 11:30] LABS: Absolute Lymphocytes (CBC) 1.8 K/uL (0.7-4.9); Basophils % 0.5 % (0-1.3); Hematocrit 41.9 % (36.0-45.0); Lymphocytes % 19.7 % (15.3-44.8); MPV 9.3 fL (7.6-11.3); RBC Red Blood Cell Count 4.49 M/uL (3.86-4.86)
[2019-12-27 11:33] LABS: Protime INR 1.05
[2019-12-27] MEDS ORDERED: DIAZEPAM 10 MG/2 ML INJ SYRINGE ONE (11:35)
[2019-12-27] MEDS ORDERED: MECLIZINE HCL 12.5 MG TAB ONE (11:35)
[2019-12-27 11:47] LABS: Bilirubin Direct 0.1 mg/dL (0-0.2); Bilirubin Total 0.4 mg/dL (0.2-1.0); Magnesium 1.9 mg/dL (1.8-2.4); Potassium 3.8 mmol/L (3.5-5.1); Protein, Total 7.9 g/dL (6.4-8.2)
--- NOTE | 2019-12-27 11:51 | RAD REPORT ---
EXAM DESCRIPTION: CT - Head Brain Wo Cont - 12/27/2019 11:40 am CLINICAL HISTORY: Dizziness COMPARISON: 2019 TECHNIQUE: Computed axial tomography of the head was obtained. IV contrast was not requested. All CT scans are performed using dose optimization technique as appropriate and may include automated exposure control or mA/KV adjustment according to patient size. FINDINGS: An intracranial bleed is not seen . The ventricles are normal in caliber. No extra-axial fluid collection is noted. Fluid within the sinuses/ mastoids is not seen. IMPRESSION: No acute intracranial abnormality is seen. If patient's symptoms persist MRI of the bra in would be recommended.
[2019-12-27 11:58] LABS: NT PRO-BNP 127 pg/mL (<450); Troponin (Emerg Dept Use Only) < 0.02 ng/mL (0.0-0.045)
--- NOTE | 2019-12-27 12:23 | RAD REPORT ---
EXAM DESCRIPTION: Juan A Single View12/27/2019 11:53 am CLINICAL HISTORY: Chest pain COMPARISON: 2018 FINDINGS: The lungs appear clear of acute infiltrate. The heart is mildly enlarged IMPRESSION: No acute abnormalities displayed
--- NOTE | 2019-12-27 12:25 | RAD REPORT ---
EXAM DESCRIPTION: RAD -Hand Left 3 View - 12/27/2019 11:53 am CLINICAL HISTORY: Left hand pain status post injury FINDINGS: No fracture or dislocation is seen. Bones are osteoporotic
[2019-12-27 12:35] LABS: Urine Blood NEGATIVE (NEG); Urine Glucose NEGATIVE (NEG); Urine Protein NEGATIVE (NEG)
--- NOTE | 2019-12-27 13:29 | EDPHYS ---
Physician Documentation [facility] Name: Dionne Lindo Age: 79 yrs Sex: Female : 1940 Arrival Date: 12/27/2019 Time: 10:38 Bed 19 Private MD: Tony Anderson ED Physician Delmar Bonilla HPI: 12/26 11:15 This 79 yrs old Female presents to ER via Wheelchair with complaints of pm1 Dizziness, Left Hand Pain. 11:15 The patient presents with vertigo, Room spinning. pm1 11:15 Onset: The symptoms/episode began/occurred this morning, at 08:00. Context: occurred at pm1 home, occurred while the patient was Standing up from sitting on the toilet. just prior to the episode the patient experienced no apparent symptoms. Modifying factors: The symptoms are alleviated by holding head still, the symptoms are aggravated by movement of head, changing position. Associated signs and symptoms: Pertinent negatives: abdominal pain, chest pain, diaphoresis, nausea, numbness, shortness of breath, tingling, vomiting. Severity of symptoms: in the emergency department the symptoms are unchanged. Patient's baseline: Neuro: alert and fully oriented, Motor: no deficits, Ambulation: walks without assistance, Speech: normal, The patient has a previous history of vertigo. The patient has experienced similar episodes in the past, several times, and the symptoms today are exactly the same, to previous vertigo. Takes meclizine and zofran PRN for vertigo. Historical: - Allergies: 10:59 "all antibiotics"; pt get yeast infection when placed on antibiotics; hb - Home Meds: 10:59 meclizine 25 mg Oral tab 1 tab as needed [Active]; Ambien Oral [Active]; amlodipine 5 hb mg tab 1 tab once daily [Active]; losartan 100 mg Oral tab 1 tab once daily [Active]; potassium chloride 20 mEq Oral TbER 1 tab once daily [Active]; zolpidem 10 mg Oral tab once daily [Active]; - PMHx: 10:59 Hypertension; Hypokalemia; Sleep Apnea; Vertigo; hb - PSHx: 10:59 Cholecystectomy; neck sx for disc; bilateral knee sx; partial hysterectomy; back; hb - Immunization history:: Adult Immunizations up to date. - Social history:: Smoking status: Patient denies any tobacco usage or history of. ROS: 11:15 Constitutional: Negative for fever, chills, and weight loss, Eyes: Negative for injury, pm1 pain, redness, and discharge, ENT: Negative for injury, pain, and discharge, Neck: Negative for injury, pain, and swelling, Cardiovascular: Negative for chest pain, palpitations, and edema, Respiratory: Negative for shortness of breath, cough, wheezing, and pleuritic chest pain, Abdomen/GI: Negative for abdominal pain, nausea, vomiting, diarrhea, and constipation, Back: Negative for injury and pain. 11:15 Skin: Negative for injury, rash, and discoloration. 11:15 MS/extremity: Positive for pain, of the left hand, Negative for decreased range of motion, deformity. 11:15 Neuro: Positive for dizziness, Negative for headache, numbness, tingling, weakness. Exam: 11:16 Constitutional: This is a well developed, well nourished patient who is awake, alert, pm1 and in no acute distress. Head/Face: Normocephalic, atraumatic. Neck: Trachea midline, no thyromegaly or masses palpated, and no cervical lymphadenopathy. Supple, full range of motion without nuchal rigidity, or vertebral point tenderness. No Meningismus. Chest/axilla: Normal chest wall appearance and motion. Nontender with no deformity. No lesions are appreciated. Cardiovascular: Regular rate and rhythm with a normal S1 and S2. No gallops, murmurs, or rubs Respiratory: Lungs have equal breath sounds bilaterally, clear to auscultation and percussion. No rales, rhonchi or wheezes noted. No increased work of breathing, no retractions or nasal flaring. Abdomen/GI: Soft, non-tender, with normal bowel sounds. No distension or tympany. No guarding or rebound. No evidence of tenderness throughout. Back: No spinal tenderness. No costovertebral tenderness. Full range of motion. Skin: Warm, dry with normal turgor. Normal color with no rashes, no lesions, and no evidence of cellulitis. 11:16 Musculoskeletal/extremity: Extremities: grossly normal except: noted in the dorsum of left hand and dorsal aspect of left wrist: contusion, There is no evidence of decreased ROM, deformity, anatomical snuff box tenderness, Circulation is intact in all extremities. the left hand Sensation intact. 11:16 Neuro: Exam negative for acute changes, Orientation: is normal, Motor: is normal, moves all fours, Patient's dizziness reproduced with patient turning her head side to side. Vital Signs: 10:57 BP 186 / 86; Pulse 104; Resp 16; Temp 97.7; Pulse Ox 99% ; Weight 68.04 kg; Height 5 hb ft. (152.40 cm); Pain 3/10; 13:00 BP 136 / 58; Pulse 88; Resp 16; Pulse Ox 98% on R/A; hb 14:00 BP 132 / 62; Pulse 86; Resp 15; Pulse Ox 99% on R/A; hb 10:57 Body Mass Index 29.29 (68.04 kg, 152.40 cm) hb MDM: 10:59 Patient medically screened. pm1 11:15 Data reviewed: vital signs. Data interpreted: Pulse oximetry: on room air is 99 %. pm1 Interpretation: normal. 13:26 Counseling: I had a detailed discussion with the patient and/or guardian regarding: the pm1 historical points, exam findings, and any diagnostic results supporting the discharge/admit diagnosis, lab results, radiology results, the need for outpatient follow up, to return to the emergency department if symptoms worsen or persist or if there are any questions or concerns that arise at home. 13:28 ED course: Patient reports resolution of vertigo, anxiety, and lower back pain with pm1 valium. Since her prescription for meclizine was not effective for her vertigo, I will discharge home with valium. 12/26 11:10 Order name: Basic Metabolic Panel; Complete Time: 11:53 pm12/26 11:10 Order name: CBC with Diff; Complete Time: 11:53 pm12/26 11:10 Order name: LFT's; Complete Time: 11:53 pm12/26 11:10 Order name: Magnesium; Complete Time: 11:53 pm12/26 11:10 Order name: NT PRO-BNP; Complete Time: 12:18 pm12/26 11:10 Order name: PT-INR; Complete Time: 11:53 pm12/26 11:10 Order name: CT Head Brain wo Cont; Complete Time: 11:53 pm12/26 11:10 Order name: Troponin (emerg Dept Use Only); Complete Time: 12:18 pm1 12/26 11:10 Order name: XRAY Chest (1 view); Complete Time: 12:28 pm1 12/26 11:10 Order name: Hand Left 3 View XRAY; Complete Time: 12:28 pm1 12/26 11:38 Order name: Urine Dipstick--Ancillary (enter results); Complete Time: 12:40 ms 12/26 11:10 Order name: EKG; Complete Time: 11:12 pm1 12/26 11:10 Order name: Cardiac monitoring; Complete Time: 11:35 pm1 12/26 11:10 Order name: EKG - Nurse/Tech; Complete Time: 11:35 pm1 12/26 11:10 Order name: IV Saline Lock; Complete Time: 11:35 pm1 12/26 11:10 Order name: Labs collected and sent; Complete Time: 11:36 pm1 12/26 11:10 Order name: O2 Per Protocol; Complete Time: 11:36 pm1 12/26 11:10 Order name: O2 Sat Monitoring; Complete Time: 11:36 pm1 12/26 13:27 Order name: Wrist Splint; Complete Time: 14:14 pm1 Administered Medications: 11:24 CANCELLED (Physician Discretion): Ativan 0.5 mg IVP once pm1 11:35 Drug: Meclizine 25 mg Route: PO; hb 12:22 Follow up: Response: No adverse reaction hb 11:35 Drug: Valium 2 mg Route: IVP; Site: right antecubital; hb 12:12 Follow up: Response: No adverse reaction hb Disposition: 12/27 07:30 Co-signature as Attending Physician, Delmar Bonilla MD I agree with the assessment and dragan plan of care. Disposition: 12/27/19 13:28 Discharged to Home. Impression: Benign paroxysmal vertigo, Pain in left hand, Contusion of left hand. - Condition is Stable. - Discharge Instructions: Benign Positional Vertigo, Cast or Splint Care, Adult, Hand Contusion. - Prescriptions for Valium 2 mg Oral Tablet - take 1 tablet by ORAL route every 8 hours As needed; 12 tablet. - Medication Reconciliation Form, Thank You Letter, Antibiotic Education, Prescription Opioid Use form. - Follow up: Emergency Department; When: As needed; Reason: Worsening of condition. Follow up: Private Physician; When: 2 - 3 days; Reason: Recheck today's complaints, Continuance of care, Re-evaluation by your physician. - Problem is new. - Symptoms have improved. Signatures: Dispatcher [employer] EDDelmar Luis, Chance Arias MD, cha, FUEL OIL TRUCK DRIVER FUEL OIL TRUCK DRIVER pm1 Radha Rucker, RN RN Corrections: (The following items were deleted from the chart) 12/26 11:24 11:23 Ativan 0.5 mg IVP once ordered. pm1 pm1 14:07 13:28 12/27/2019 13:28 Discharged to Home. Impression: Benign paroxysmal vertigoPain in hb left hand; Contusion of left hand. Condition is Stable. Forms are Medication Reconciliation Form, Thank You Letter, Antibiotic Education, Prescription Opioid Use. Follow up: Emergency Department; When: As needed; Reason: Worsening of condition. Follow up: Private Physician; When: 2 - 3 days; Reason: Recheck today's complaints, Continuance of care, Re-evaluation by your physician. Problem is new. Symptoms have improved. pm1
--- NOTE | 2019-12-27 13:29 | ER ---
Nurse's Notes [facility] Name: Dionne Lindo Age: 79 yrs Sex: Female : 1940 Arrival Date: 12/27/2019 Time: 10:38 Bed 19 Private MD: Tony Anderson Diagnosis: Pain in left hand;Contusion of left hand;Benign paroxysmal vertigo Presentation: 12/26 10:54 Chief complaint: Became dizzy while ambulating to bathroom, fell and hit hand, now c/o hb dizziness and left hand pain 3/10. Hx of vertigo, took Meclizine 25 mg 1 hr [employer]. Care prior to arrival: None. 10:54 Acuity: KARTHIK 3 hb 10:54 Method Of Arrival: Wheelchair hb 10:57 Coronavirus screen: Patient denies fever greater than 100.4F, cough, shortness of hb breath, or difficulty breathing. Proceed with normal triage process. Ebola Screen: No symptoms or risks identified at this time. Initial Sepsis Screen: Does the patient meet any 2 criteria? Systolic BP < 90 mmHg. No. Patient's initial sepsis screen is negative. Does the patient have a suspected source of infection? No. Patient's initial sepsis screen is negative. Risk Assessment: Do you want to hurt yourself or someone else? Patient reports no desire to harm self or others. Triage Assessment: 11:00 General: Appears in no apparent distress. Behavior is calm, cooperative. Pain: Pain hb currently is 3 out of 10 on a pain scale. EENT: No signs and/or symptoms were reported regarding the EENT system. Neuro: Level of Consciousness is awake, alert, obeys commands, Oriented to person, place, time, situation, Reports dizziness. Cardiovascular: Capillary refill < 3 seconds Patient's skin is warm and dry. Respiratory: Airway is patent Respiratory effort is even, unlabored, Respiratory pattern is regular, symmetrical. GI: No signs and/or symptoms were reported involving the gastrointestinal system. : No signs and/or symptoms were reported regarding the genitourinary system. Derm: Skin is pink, warm \\T\\ dry. Musculoskeletal: No signs and/or symptoms reported regarding the musculoskeletal system. Historical: - Allergies: 10:59 "all antibiotics"; pt get yeast infection when placed on antibiotics; hb - Home Meds: 10:59 meclizine 25 mg Oral tab 1 tab as needed [Active]; Ambien Oral [Active]; amlodipine 5 hb mg tab 1 tab once daily [Active]; losartan 100 mg Oral tab 1 tab once daily [Active]; potassium chloride 20 mEq Oral TbER 1 tab once daily [Active]; zolpidem 10 mg Oral tab once daily [Active]; - PMHx: 10:59 Hypertension; Hypokalemia; Sleep Apnea; Vertigo; hb - PSHx: 10:59 Cholecystectomy; neck sx for disc; bilateral knee sx; partial hysterectomy; back; hb - Immunization history:: Adult Immunizations up to date. - Social history:: Smoking status: Patient denies any tobacco usage or history of. Screenin:00 Abuse screen: Denies threats or abuse. Denies injuries from another. Nutritional hb screening: No deficits noted. Tuberculosis screening: No symptoms or risk factors identified. Fall Risk Total Valentine Fall Scale indicates Low Risk Score (25-44 pts). Fall prevention measures have been instituted. Side Rails Up X 2 Frequent Obs/Assesments occuring Family Present and informed to notify staff if they need to leave bedside As available Patient and Family Educated on Fall Prevention Program and strategies. Assessment: 11:02 General: SEE TRIAGE NOTE. hb 12:00 Reassessment: Patient appears in no apparent distress at this time. Patient and/or hb family updated on plan of care and expected duration. Pain level reassessed. Patient is alert, oriented x 3, equal unlabored respirations, skin warm/dry/pink. 13:00 Reassessment: Patient appears in no apparent distress at this time. Patient and/or hb family updated on plan of care and expected duration. Pain level reassessed. Patient is alert, oriented x 3, equal unlabored respirations, skin warm/dry/pink. 14:00 Reassessment: Patient appears in no apparent distress at this time. Patient and/or hb family updated on plan of care and expected duration. Pain level reassessed. Patient is alert, oriented x 3, equal unlabored respirations, skin warm/dry/pink. Patient states symptoms have improved. Vital Signs: 10:57 BP 186 / 86; Pulse 104; Resp 16; Temp 97.7; Pulse Ox 99% ; Weight 68.04 kg; Height 5 hb ft. (152.40 cm); Pain 3/10; 13:00 BP 136 / 58; Pulse 88; Resp 16; Pulse Ox 98% on R/A; hb 14:00 BP 132 / 62; Pulse 86; Resp 15; Pulse Ox 99% on R/A; hb 10:57 Body Mass Index 29.29 (68.04 kg, 152.40 cm) hb ED Course: 10:38 Patient arrived in ED. am2 10:39 Tony Anderson MD is Private Physician. am2 10:50 Radha Rucker RN is Primary Nurse. hb 10:56 Triage completed. hb 10:58 Chance Mi NP is PHCP. pm1 10:58 Delmar Bonilla MD is Attending Physician. pm1 11:00 Arm band placed on. hb 11:00 Patient has correct armband on for positive identification. Placed in gown. Bed in low hb position. Call light in reach. Side rails up X 1. Adult w/ patient. 11:40 CT completed. Patient moved to radiology. mw3 11:42 CT Head Brain wo Cont In Process Unspecified. EDMS 11:53 XRAY Chest (1 view) In Process Unspecified. EDMS 11:53 Hand Left 3 View XRAY In Process Unspecified. EDMS 14:00 No provider procedures requiring assistance completed. IV discontinued, intact, hb bleeding controlled, No redness/swelling at site. Pressure dressing applied. Administered Medications: 11:24 CANCELLED (Physician Discretion): Ativan 0.5 mg IVP once pm1 11:35 Drug: Meclizine 25 mg Route: PO; hb 12:22 Follow up: Response: No adverse reaction hb 11:35 Drug: Valium 2 mg Route: IVP; Site: right antecubital; hb 12:12 Follow up: Response: No adverse reaction hb Outcome: 13:28 Discharge ordered by . pm1 14:00 Discharged to home via wheelchair, with family. hb 14:00 Condition: stable 14:00 Discharge instructions given to patient, family, Instructed on discharge instructions, follow up and referral plans. medication usage, Demonstrated understanding of instructions, follow-up care, medications, Prescriptions given X 1. 14:07 Patient left the ED. hb Signatures: Dispatcher [employer] EDMS Chance Mi NP TURN SEWER pm1 Radha Rucker RN RN Thea Cortez am2 Jenny Dumont mw3
[2019-12-27 14:20] VITALS: BP 136/58; O2SAT 98
[2019-12-27 14:23] VITALS: TEMP 97.9
--- NOTE | 2019-12-29 05:28 | EKG ---
Test Date: 2019-12-27 Test Time: 11:15:30 Fixed Route Bus Operator: ELROY MEASUREMENT RESULTS: Intervals: Rate: 104 VA: 128 QRSD: 84 QT: 354 QTc: 465 [place]: P: 51 VA: 128 QRS: 25 T: 51 INTERPRETIVE STATEMENTS: Sinus tachycardia Nonspecific T wave abnormality Abnormal ECG Compared to ECG 07/11/2019 12:15:37 Sinus rhythm no longer present T-wave abnormality still present Electronically Signed On 12-29-19 05:25:41 CDT by Quinten Abdullahi
== END 2019-12-27 14:07 | disposition home or self-care (01) ==
LOC: ER 10:36
DX: H81.10 Benign paroxysmal vertigo, unspecified ear (principal); S60.222A Contusion of left hand, initial encounter; M79.642 Pain in left hand; I10 Essential (primary) hypertension; E87.6 Hypokalemia; Z88.1 Allergy status to other antibiotic agents
CPT/HCPCS: 93005; 85025; 80048; 36415; 83735; 85610; 80076; 81003; 84484; 83880; 70450; 71045; 73130; 96374; 99283; J3360; J8597

== ENCOUNTER 2020-03-12 10:32 | Emergency (ER) | payer OTHER ==
--- OUTSIDE RECORDS SUMMARY | 2020-03-12 10:34 | XMS REPORT | Continuity of Care Document ---
:1940 Author Organization [facility] t Address [address] [place] [address] Care Team Providers Name Role Phone Therapy, Bls Occup Attending Clinician Unavailable Doctor Unassigned, Name Attending Clinician Unavailable Problems This patient has no known problems. Allergies, Adverse Reactions, Alerts This patient has no known allergies or adverse reactions. Medications This patient has no known medications. Procedures This patient has no known procedures. Encounters Start End Encounter Admission Attending Care Care Encounter Source Date/Time Date/Time Type Type Clinicians Facility Department ID 2020-01-01 2020-01-01 Ancillary Therapy, [facility] [id number] 11:42:44 12:42:44 Visit [facility] Health [id number] Occup Clear [id number] Petros [id number] Medical [address] 2020-01-01 2020-01-01 Orders Doctor FLORIN [id number] 19 00:00:00 00:00:00 Only Unassigned, MARLO [id number] [place] [facility] [id number] Results This patient has no known results.
[2020-03-12] MEDS ORDERED: MORPHINE 2 MG/ML SYR ONE ×2 (12:17→13:00)
[2020-03-12] MEDS ORDERED: DIAZEPAM 2 MG TABLET ONE (12:18)
[2020-03-12] MEDS ORDERED: NA CHLORIDE 0.9% 500 ML ONE (12:18)
[2020-03-12] MEDS ORDERED: dexAMETHasone 10 MG/ML VIAL ONE (12:18)
[2020-03-12] MEDS ORDERED: KETOROLAC 30 MG/ML INJ ONE (12:18)
[2020-03-12] MEDS ORDERED: ONDANSETRON 4 MG/2 ML VIAL ONE (12:18)
[2020-03-12 12:30] LABS: Absolute Lymphocytes (CBC) 1.9 K/uL (0.7-4.9); Basophils % 0.2 % (0-1.3); Hematocrit 43.9 % (36.0-45.0); Lymphocytes % 16.3 % (15.3-44.8); MPV 9.2 fL (7.6-11.3); RBC Red Blood Cell Count 4.67 M/uL (3.86-4.86)
[2020-03-12 12:54] LABS: Albumin 4.1 g/dL (3.4-5.0); Bilirubin Total 0.7 mg/dL (0.2-1.0); Potassium 3.9 mmol/L (3.5-5.1); Protein, Total 8.3 g/dL (6.4-8.2)
--- NOTE | 2020-03-12 13:18 | EDPHYS ---
Physician Documentation [facility] Name: Dionne Lindo Age: 79 yrs Sex: Female : 1940 Arrival Date: 03/12/2020 Time: 10:36 Bed 19 Private MD: ED Physician Delmar Bonilla HPI: 03/12 12:00 This 79 yrs old Female presents to ER via Ambulatory with complaints of Neck dragan and Upper Back Pain. 12:00 The patient or guardian complains of decreased range of motion, pain, that is acute. dragan The symptoms are located at the C1, C2, C3, C4, C5, C6 and C7. Onset: The symptoms/episode began/occurred 3 day(s) ago. Context: The problem was sustained at an unknown location. Associated signs and symptoms: The patient has no apparent associated signs or symptoms. Modifying factors: The symptoms are alleviated by nothing. remaining still, the symptoms are aggravated by movement, pressure. Severity of symptoms: At their worst the symptoms were mild, moderate, in the emergency department the symptoms are unchanged. The patient has experienced similar episodes in the past, multiple times. Historical: - Allergies: 10:56 Penicillins; jl7 - Home Meds: 10:56 Ambien Oral [Active]; amlodipine 5 mg tab 1 tab once daily [Active]; potassium chloride jl7 20 mEq Oral TbER 1 tab once daily [Active]; losartan 100 mg Oral tab 1 tab once daily [Active]; Tramadol Oral [Active]; - PMHx: 10:56 Hypertension; Hypokalemia; Sleep Apnea; Vertigo; jl7 - PSHx: 10:56 Cholecystectomy; neck sx for disc; bilateral knee sx; partial hysterectomy; back; jl7 - Immunization history:: Adult Immunizations up to date. - Social history:: Smoking status: Patient denies any tobacco usage or history of. - Family history:: not pertinent. ROS: 12:00 Constitutional: Negative for fever, chills, and weight loss, Eyes: Negative for injury, dragan pain, redness, and discharge, ENT: Negative for injury, pain, and discharge, Neck: Negative for injury, pain, and swelling, Cardiovascular: Negative for chest pain, palpitations, and edema, Respiratory: Negative for shortness of breath, cough, wheezing, and pleuritic chest pain, Abdomen/GI: Negative for abdominal pain, nausea, vomiting, diarrhea, and constipation, : Negative for injury, bleeding, discharge, and swelling, MS/Extremity: Negative for injury and deformity, Skin: Negative for injury, rash, and discoloration, Neuro: Negative for headache, weakness, numbness, tingling, and seizure, Psych: Negative for depression, anxiety, suicide ideation, homicidal ideation, and hallucinations, Allergy/Immunology: Negative for hives, rash, and allergies, Endocrine: Negative for neck swelling, polydipsia, polyuria, polyphagia, and marked weight changes, Hematologic/Lymphatic: Negative for swollen nodes, abnormal bleeding, and unusual bruising. 12:00 Back: Positive for decreased range of motion, pain at rest, pain with movement, radiated pain, of the left trapezius, right trapezius, left scapular area, right scapular area and thoracic area. Exam: 12:00 Constitutional: This is a well developed, well nourished patient who is awake, alert, dragan and in no acute distress. Head/Face: Normocephalic, atraumatic. Eyes: Pupils equal round and reactive to light, extra-ocular motions intact. Lids and lashes normal. Conjunctiva and sclera are non-icteric and not injected. Cornea within normal limits. Periorbital areas with no swelling, redness, or edema. ENT: Nares patent. No nasal discharge, no septal abnormalities noted. Tympanic membranes are normal and external auditory canals are clear. Oropharynx with no redness, swelling, or masses, exudates, or evidence of obstruction, uvula midline. Mucous membranes moist. Neck: Trachea midline, no thyromegaly or masses palpated, and no cervical lymphadenopathy. Supple, full range of motion without nuchal rigidity, or vertebral point tenderness. No Meningismus. Chest/axilla: Normal chest wall appearance and motion. Nontender with no deformity. No lesions are appreciated. Cardiovascular: Regular rate and rhythm with a normal S1 and S2. No gallops, murmurs, or rubs. Normal PMI, no JVD. No pulse deficits. Respiratory: Lungs have equal breath sounds bilaterally, clear to auscultation and percussion. No rales, rhonchi or wheezes noted. No increased work of breathing, no retractions or nasal flaring. Abdomen/GI: Soft, non-tender, with normal bowel sounds. No distension or tympany. No guarding or rebound. No evidence of tenderness throughout. Female : Normal external genitalia. Skin: Warm, dry with normal turgor. Normal color with no rashes, no lesions, and no evidence of cellulitis. MS/ Extremity: Pulses equal, no cyanosis. Neurovascular intact. Full, normal range of motion. Neuro: Awake and alert, GCS 15, oriented to person, place, time, and situation. Cranial nerves II-XII grossly intact. Motor strength 5/5 in all extremities. Sensory grossly intact. Cerebellar exam normal. Normal gait. Psych: Awake, alert, with orientation to person, place and time. Behavior, mood, and affect are within normal limits. 12:00 Back: pain, that is moderate, ROM is painful, decreased, normal spinal alignment noted, CVA tenderness, is absent, muscle spasm, is appreciated in the left scapular area, right scapular area, left subscapular area and right subscapular area. Vital Signs: 10:52 BP 152 / 86; Pulse 96; Resp 19; Temp 98.4; Pulse Ox 97% ; Weight 79.83 kg; Height 5 ft. jl7 (152.40 cm); Pain 8/10; 12:00 BP 162 / 62; Pulse 82; Resp 15 S; Pulse Ox 97% on R/A; ca1 12:46 BP 142 / 60; Pulse 81; Resp 15 S; Pulse Ox 97% on R/A; ca1 13:15 BP 144 / 68; Pulse 86; Resp 15 S; Pulse Ox 99% on R/A; ca1 10:52 Body Mass Index 34.37 (79.83 kg, 152.40 cm) jl7 MDM: 10:59 Patient medically screened. dragan 12:03 Differential diagnosis: arthritis, Cervical Disc Herniation Cervical Raiculopathy dragan Cervical Spondylosis cervical strain, Degenerative Disc Disease Osteoarthritis. Data reviewed: vital signs, nurses notes, lab test result(s). Data interpreted: quality assurance monitor chassis: rate is 96 beats/min, rhythm is normal sinus rhythm, Pulse oximetry: on room air is 97 %. Counseling: I had a detailed discussion with the patient and/or guardian regarding: the historical points, exam findings, and any diagnostic results supporting the discharge/admit diagnosis, lab results, radiology results, the need for outpatient follow up, for definitive care. Medication response: Zofran markedly relieved the patient's nausea. 12:09 ED course: pain control , follow up dr vasques, patient aware. [facility] 12:39 Response to treatment: the patient's symptoms have markedly improved after treatment. [facility] 13:16 ED course: pt improved, explained plan, will follow dr vasques. [facility] 03/12 12:00 Order name: CBC with Diff; Complete Time: 12:39 [facility] 03/12 12:00 Order name: Comprehensive Metabolic Panel; Complete Time: 13:15 [facility] 03/12 13:03 Order name: Urine Dipstick--Ancillary (enter results) 03/12 12:00 Order name: Urine Dipstick-Ancillary (obtain specimen); Complete Time: 13:34 [facility] Administered Medications: 12:08 Drug: NS 0.9% 500 ml Route: IV; Rate: bolus; Site: right antecubital; ca1 12:30 Follow up: IV Status: Completed infusion ca1 12:08 Drug: Valium 2 mg Route: PO; ca1 13:35 Follow up: Response: No adverse reaction; Pain is decreased ca1 12:09 Drug: Zofran (Ondansetron) 4 mg Route: IVP; Site: right antecubital; ca1 13:35 Follow up: Response: No adverse reaction ca1 12:11 Drug: TORadol 30 mg Route: IVP; Site: right antecubital; ca1 13:00 Follow up: Response: No adverse reaction; Pain is decreased ca1 12:13 Drug: Decadron - Dexamethasone 10 mg Route: IVP; Site: right antecubital; ca1 13:35 Follow up: Response: No adverse reaction ca1 12:16 Drug: morphine 2 mg {Note: RASS - 0.} Route: IVP; Site: right antecubital; ca1 12:56 Drug: morphine 2 mg {Note: rass 0.} Route: IVP; Site: right antecubital; ca1 13:00 Follow up: Response: No adverse reaction; Pain is decreased; RASS: Alert and Calm (0) ca1 Disposition: 03/12/20 13:17 Discharged to Home. Impression: Strain of muscle, fascia and tendon at neck level, Strain of muscle and tendon of back wall of thorax - known arthritis changes, Kyphosis and lordosis. - Condition is Stable. - Discharge Instructions: Arthritis, Back Pain, Adult, Muscle Strain, Cervical Sprain, Rtsn-jz-Vxof, Back Pain, Adult, Spcd-uc-Vdnj, Arthritis, Amdz-ro-Jmmh, Muscle Strain, Xcxe-rq-Yiqr. - Prescriptions for Tylenol- Codeine #3 300-30 mg Oral Tablet - take 2 tablet by ORAL route every 6 hours As needed; 30 tablet. Valium 2 mg Oral Tablet - take 1 tablet by ORAL route every 8 hours As needed; 15 tablet. Medrol (Jacob) 4 mg Oral Tablets, Dose Pack - take 1 tablet by ORAL route as directed - follow package instructions; 1 packet. Motrin IB 200 mg Oral Tablet - take 1 tablet by ORAL route every 6 hours As needed as needed with food; 40 tablet. - Medication Reconciliation Form, Thank You Letter, Antibiotic Education, Prescription Opioid Use form. - Follow up: Private Physician; When: 2 - 3 days; Reason: Recheck today's complaints, Continuance of care, Re-evaluation by your physician. Follow up: Xander Farias; When: 2 - 3 days; Reason: Recheck today's complaints, Continuance of care, Re-evaluation by your physician. - Problem is new. - Symptoms have improved. Signatures: Dispatcher [employer] EDDelmar Luis MD MD cha Leal, Jahala, RN RN jl7 Carli Rainey RN RN ca1 Corrections: (The following items were deleted from the chart) 13:18 13:17 03/12/2020 13:17 Discharged to Home. Impression: Strain of muscle, fascia and dragan tendon at neck level; Strain of muscle and tendon of back wall of thorax; Kyphosis and lordosis. Condition is Stable. Discharge Instructions: Back Pain, Adult, Muscle Strain, Cervical Sprain, Xqhz-jn-Fvzy, Back Pain, Adult, Tpcq-kz-Gscl, Muscle Strain, Jlmt-kh-Ajah, Arthritis, Arthritis, Djzq-za-Etoc. Prescriptions for Tylenol-Codeine #3 300-30 mg Oral Tablet - take 2 tablet by ORAL route every 6 hours As needed; 30 tablet, Valium 2 mg Oral Tablet - take 1 tablet by ORAL route every 8 hours As needed; 15 tablet, Medrol (Jacob) 4 mg Oral Tablets, Dose Pack - take 1 tablet by ORAL route as directed - follow package instructions; 1 packet, Motrin IB 200 mg Oral Tablet - take 1 tablet by ORAL route every 6 hours As needed as needed with food; 40 tablet. and Forms are Medication Reconciliation Form, Thank You Letter, Antibiotic Education, Prescription Opioid Use. Follow up: Private Physician; When: 2 - 3 days; Reason: Recheck today's complaints, Continuance of care, Re-evaluation by your physician. Follow up: Xander Farias; When: 2 - 3 days; Reason: Recheck today's complaints, Continuance of care, Re-evaluation by your physician. Problem is new. Symptoms have improved. dragan 13:42 13:18 03/12/2020 13:17 Discharged to Home. Impression: Strain of muscle, fascia and ca1 tendon at neck level; Strain of muscle and tendon of back wall of thorax - known arthritis changes; Kyphosis and lordosis. Condition is Stable. Discharge Instructions: Back Pain, Adult, Muscle Strain, Cervical Sprain, Vorx-qc-Cmgj, Back Pain, Adult, Nobp-kn-Baye, Muscle Strain, Cftd-vo-Czin, Arthritis, Arthritis, Ycdj-oh-Sozr. Prescriptions for Tylenol-Codeine #3 300-30 mg Oral Tablet - take 2 tablet by ORAL route every 6 hours As needed; 30 tablet, Valium 2 mg Oral Tablet - take 1 tablet by ORAL route every 8 hours As needed; 15 tablet, Medrol (Jacob) 4 mg Oral Tablets, Dose Pack - take 1 tablet by ORAL route as directed - follow package instructions; 1 packet, Motrin IB 200 mg Oral Tablet - take 1 tablet by ORAL route every 6 hours As needed as needed with food; 40 tablet. and Forms are Medication Reconciliation Form, Thank You Letter, Antibiotic Education, Prescription Opioid Use. Follow up: Private Physician; When: 2 - 3 days; Reason: Recheck today's complaints, Continuance of care, Re-evaluation by your physician. Follow up: Xander Farias; When: 2 - 3 days; Reason: Recheck today's complaints, Continuance of care, Re-evaluation by your physician. Problem is new. Symptoms have improved. dragan
--- NOTE | 2020-03-12 13:18 | ER ---
Nurse's Notes [facility] Name: Dionne Lindo Age: 79 yrs Sex: Female : 1940 Arrival Date: 03/12/2020 Time: 10:36 Bed 19 Private MD: Diagnosis: Strain of muscle, fascia and tendon at neck level;Strain of muscle and tendon of back wall of thorax-known arthritis changes;Kyphosis and lordosis Presentation: 03/12 10:52 Chief complaint: Patient states: Posterior neck pain, radiates to left shoulder, jl7 started yesterday, denies trauma. Coronavirus screen: Proceed with normal triage. Patient denies a cough. Patient denies shortness of breath or difficulty breathing. Patient denies measured and/or subjective temperature greater than 100.4F prior to today's visit. Patient denies travel on a cruise ship or to a country the [facility] currently lists as an affected area. Patient denies contact with known and/or suspected case of COVID-19. Ebola Screen: No symptoms or risks identified at this time. Initial Sepsis Screen: Does the patient meet any 2 criteria? No. Patient's initial sepsis screen is negative. Does the patient have a suspected source of infection? No. Patient's initial sepsis screen is negative. Risk Assessment: Do you want to hurt yourself or someone else? Patient reports no desire to harm self or others. Onset of symptoms was March 11, 2020. Care prior to arrival: None. 10:52 Method Of Arrival: Ambulatory jl7 10:52 Acuity: KARTHIK 4 jl7 Triage Assessment: 10:56 General: Appears in no apparent distress. uncomfortable, Behavior is calm, cooperative, jl7 appropriate for age. Pain: Complains of pain in posterior neck Pain currently is 8 out of 10 on a pain scale. Neuro: Level of Consciousness is awake, alert, obeys commands, Oriented to person, place, time, situation. Cardiovascular: Patient's skin is warm and dry. Respiratory: Airway is patent Respiratory effort is even, unlabored, Respiratory pattern is regular, symmetrical. Derm: Skin is pink, warm \T\ dry. Historical: - Allergies: 10:56 Penicillins; jl7 - Home Meds: 10:56 Ambien Oral [Active]; amlodipine 5 mg tab 1 tab once daily [Active]; potassium chloride jl7 20 mEq Oral TbER 1 tab once daily [Active]; losartan 100 mg Oral tab 1 tab once daily [Active]; Tramadol Oral [Active]; - PMHx: 10:56 Hypertension; Hypokalemia; Sleep Apnea; Vertigo; jl7 - PSHx: 10:56 Cholecystectomy; neck sx for disc; bilateral knee sx; partial hysterectomy; back; jl7 - Immunization history:: Adult Immunizations up to date. - Social history:: Smoking status: Patient denies any tobacco usage or history of. - Family history:: not pertinent. Screenin:10 Abuse screen: Denies threats or abuse. Denies injuries from another. Nutritional ca1 screening: No deficits noted. Tuberculosis screening: No symptoms or risk factors identified. Fall Risk IV access (20 points). Ambulatory Aid- Crutches/Cane/Walker (15 pts). Total Valentine Fall Scale indicates Low Risk Score (25-44 pts). Fall prevention measures have been instituted. Side Rails Up X 2 Family Present and informed to notify staff if they need to leave bedside As available Patient and Family Educated on Fall Prevention Program and strategies. Assessment: 11:10 General: Appears in no apparent distress. uncomfortable, Behavior is calm, cooperative, ca1 appropriate for age. Pain: Complains of pain in thoracic area Pain radiates to left scapular area Pain currently is 8 out of 10 on a pain scale. Is chronic. Neuro: Level of Consciousness is awake, alert, obeys commands, Oriented to person, place, time, situation, Appropriate for age. Cardiovascular: Heart tones S1 S2 present Capillary refill < 3 seconds Patient's skin is warm and dry. Respiratory: Airway is patent Respiratory effort is even, unlabored, Respiratory pattern is regular, symmetrical, Breath sounds are clear bilaterally. GI: Abdomen is round non-distended, Bowel sounds present X 4 quads. Abd is soft and non tender X 4 quads. : No signs and/or symptoms were reported regarding the genitourinary system. EENT: No signs and/or symptoms were reported regarding the EENT system. Derm: Skin is intact, is healthy with good turgor, Skin is pink, warm \T\ dry. Musculoskeletal: Circulation, motion, and sensation intact. Capillary refill < 3 seconds. 12:15 Reassessment: Patient appears in no apparent distress at this time. Patient and/or ca1 family updated on plan of care and expected duration. Pain level reassessed. Patient is alert, oriented x 3, equal unlabored respirations, skin warm/dry/pink. 13:15 Reassessment: Patient appears in no apparent distress at this time. Patient and/or ca1 family updated on plan of care and expected duration. Pain level reassessed. Patient is alert, oriented x 3, equal unlabored respirations, skin warm/dry/pink. Patient states feeling better. Vital Signs: 10:52 BP 152 / 86; Pulse 96; Resp 19; Temp 98.4; Pulse Ox 97% ; Weight 79.83 kg; Height 5 ft. jl7 (152.40 cm); Pain 8/10; 12:00 BP 162 / 62; Pulse 82; Resp 15 S; Pulse Ox 97% on R/A; ca1 12:46 BP 142 / 60; Pulse 81; Resp 15 S; Pulse Ox 97% on R/A; ca1 13:15 BP 144 / 68; Pulse 86; Resp 15 S; Pulse Ox 99% on R/A; ca1 10:52 Body Mass Index 34.37 (79.83 kg, 152.40 cm) jl7 ED Course: 10:36 Patient arrived in ED. ag5 10:54 Triage completed. jl7 10:56 Arm band placed on right wrist. jl7 10:58 Carli Rainey, ANMOL is Primary Nurse. ca1 10:59 Delmar Bonilla MD is Attending Physician. dragan 11:10 Patient has correct armband on for positive identification. Bed in low position. Call ca1 light in reach. Side rails up X2. Pulse ox on. NIBP on. Door closed. Noise minimized. Lights dimmed. Warm blanket given. Head of bed elevated. Pillow given. 12:08 No provider procedures requiring assistance completed. Initial lab(s) drawn, by nv, ca1 sent to lab. Inserted saline lock: 22 gauge in right antecubital area, using aseptic technique. Blood collected. 13:17 Xander Farias DO is Referral Physician. dragan 13:41 IV discontinued, intact, bleeding controlled, No redness/swelling at site. Pressure ca1 dressing applied. Administered Medications: 12:08 Drug: NS 0.9% 500 ml Route: IV; Rate: bolus; Site: right antecubital; ca1 12:30 Follow up: IV Status: Completed infusion ca1 12:08 Drug: Valium 2 mg Route: PO; ca1 13:35 Follow up: Response: No adverse reaction; Pain is decreased ca1 12:09 Drug: Zofran (Ondansetron) 4 mg Route: IVP; Site: right antecubital; ca1 13:35 Follow up: Response: No adverse reaction ca1 12:11 Drug: TORadol 30 mg Route: IVP; Site: right antecubital; ca1 13:00 Follow up: Response: No adverse reaction; Pain is decreased ca1 12:13 Drug: Decadron - Dexamethasone 10 mg Route: IVP; Site: right antecubital; ca1 13:35 Follow up: Response: No adverse reaction ca1 12:16 Drug: morphine 2 mg {Note: RASS - 0.} Route: IVP; Site: right antecubital; ca1 12:56 Drug: morphine 2 mg {Note: rass 0.} Route: IVP; Site: right antecubital; ca1 13:00 Follow up: Response: No adverse reaction; Pain is decreased; RASS: Alert and Calm (0) ca1 Outcome: 13:17 Discharge ordered by . dragan 13:41 Discharged to home ambulatory, with family. ca1 13:41 Condition: stable 13:41 Discharge instructions given to patient, family, Instructed on discharge instructions, follow up and referral plans. no drinking with medication, no driving heavy equipment, medication usage, Demonstrated understanding of instructions, follow-up care, medications, Prescriptions given X 4. 13:42 Patient left the ED. ca1 Signatures: Delmar Bonilla MD MD cha Leal, Jahala RN RN jl7 Carli Rainey RN RN ca1 [place]in, Ajare ag5
[2020-03-12 13:22] LABS: Urine Blood NEGATIVE (NEG); Urine Glucose NEGATIVE (NEG); Urine Protein NEGATIVE (NEG); Urine pH 6.5 (5.0-7.0)
[2020-03-12 13:48] VITALS: TEMP 98.4
[2020-03-12 13:52] VITALS: BP 144/68; O2SAT 99
== END 2020-03-12 13:42 | disposition home or self-care (01) ==
LOC: ER 10:32
DX: S16.1XXA Strain of muscle, fascia and tendon at neck level, initial encounter (principal); S29.012A Strain of muscle and tendon of back wall of thorax, initial encounter; X58.XXXA Exposure to other specified factors, initial encounter; M40.209 Unspecified kyphosis, site unspecified; M40.50 Lordosis, unspecified, site unspecified
CPT/HCPCS: 85025; 36415; 81003; 80053; 96375; 96374; 99284; J1100; J2270 ×2; J7040; J2405

== ENCOUNTER 2020-06-09 08:33 | Emergency (ER) | payer OTHER ==
--- OUTSIDE RECORDS SUMMARY | 2020-06-09 08:57 | XMS REPORT | Continuity of Care Document ---
:1940 Author Organization [facility] t Address [address] [place] [address] Care Team Providers Name Role Phone Therapy, [...] Facility Department ID 2020-01-01 2020-01-01 Ancillary Therapy, [facility] [id number] 11:42:44 12:42:44 Visit [facility] [id number] Occup Clear [id number] [place] [phone] Medical [address] 2020-01-01 2020-01-01 Orders Doctor FLORIN [id number] 00:00:00 00:00:00 Only Unassigned, MARLO [id number] [place] [facility] [id number] [phone] [id number] Results This patient has no known results.
[2020-06-09] MEDS ORDERED: MECLIZINE HCL 12.5 MG TAB ONE (09:31)
[2020-06-09] MEDS ORDERED: DIAZEPAM 10 MG/2 ML INJ SYRINGE ONE (09:31)
[2020-06-09] MEDS ORDERED: ONDANSETRON 4 MG/2 ML VIAL ONE ×2 (09:31→11:18)
[2020-06-09 09:48] LABS: Absolute Lymphocytes (CBC) 1.3 K/uL (0.7-4.9); Basophils % 0.4 % (0-1.3); Hematocrit 41.3 % (36.0-45.0); Lymphocytes % 11.7 % (15.3-44.8); MPV 8.6 fL (7.6-11.3); RBC Red Blood Cell Count 4.27 M/uL (3.86-4.86)
--- NOTE | 2020-06-09 09:49 | RAD REPORT ---
EXAM DESCRIPTION: CT - Head Brain Wo Cont - 06/09/2020 9:37 am CLINICAL HISTORY: Dizziness COMPARISON: November 2019 TECHNIQUE: Computed axial tomography of the head was obtained. IV contrast was not requested. All CT scans are performed using dose optimization technique as appropriate and may include automated exposure control or mA/KV adjustment according to patient size. FINDINGS: An intracranial bleed is not seen . The ventricles are normal in caliber. No extra-axial fluid collection is noted. Fluid within the sinuses/ mastoids is not seen. IMPRESSION: No acute intracranial abnormality is seen. If patient's symptoms persist MRI of the bra in would be recommended.
[2020-06-09 09:58] LABS: ALT/SGPT 12 U/L (12-78); AST/SGOT 11 U/L (15-37); Albumin 3.4 g/dL (3.4-5.0); Alkaline Phosphatase 88 U/L (45-117); BUN Blood Urea Nitrogen 9 mg/dL (7-18); Bicarbonate 26 mmol/L (21-32); Bilirubin Direct 0.2 mg/dL (0-0.2); Bilirubin Total 0.8 mg/dL (0.2-1.0); Glucose Level 147 mg/dL (74-106); Magnesium 1.8 mg/dL (1.8-2.4); NT PRO-BNP 275 pg/mL (<450); Potassium 3.8 mmol/L (3.5-5.1); Protein, Total 7.6 g/dL (6.4-8.2); Sodium Level 138 mmol/L (136-145); Troponin (Emerg Dept Use Only) < 0.02 ng/mL (0.0-0.045)
[2020-06-09 10:02] LABS: Protime INR 1.1
--- NOTE | 2020-06-09 10:07 | RAD REPORT ---
EXAM DESCRIPTION: Juan A Single View06/09/2020 9:50 am CLINICAL HISTORY: Shortness of breath COMPARISON: November 2019 FINDINGS: The lungs appear clear of acute infiltrate. The heart is mildly enlarged IMPRESSION: No acute abnormalities displayed
--- NOTE | 2020-06-09 10:26 | EDPHYS ---
Physician Documentation [facility] Name: Dionne Lindo Age: 79 yrs Sex: Female : 1940 Arrival Date: 06/09/2020 Time: 08:35 Bed 23 Private MD: Tony Anderson ED Physician Neymar Shaffer HPI: 06/09 09:28 This 79 yrs old Female presents to ER via Wheelchair with complaints of jr8 Dizziness, Nausea, Ear Pain, Difficulty Swallowing. 09:28 The patient presents with dizziness, feeling off balance, sense of spinning, vertigo. jr8 Onset: The symptoms/episode began/occurred acutely, today, upon waking. Context: occurred at home. Modifying factors: The symptoms are alleviated by nothing, the symptoms are aggravated by movement of head, standing up, changing position. Associated signs and symptoms: Pertinent positives: nausea, vomiting. Severity of symptoms: At their worst the symptoms were moderate in the emergency department the symptoms are unchanged. Patient's baseline: Neuro: alert and fully oriented, Motor: no deficits, Ambulation: walks without assistance, Speech: normal. The patient has experienced a previous episode. The patient has not recently seen a physician. Patient stated that the symptoms she is having today feels like what she had the last time which ended up being vertigo but now having right TMJ pain which is new . Historical: - Allergies: 08:53 PENICILLINS; iw - Home Meds: 08:53 Ambien Oral [Active]; amlodipine 5 mg tab 1 tab once daily [Active]; losartan 100 mg iw Oral tab 1 tab once daily [Active]; potassium chloride 20 mEq Oral TbER 1 tab once daily [Active]; Tramadol Oral [Active]; - PMHx: 08:53 Hypertension; Hypokalemia; Sleep Apnea; Vertigo; iw - PSHx: 08:53 Cholecystectomy; neck sx for disc; bilateral knee sx; partial hysterectomy; back; iw - Social history:: Smoking status: . ROS: 09:28 Eyes: Negative for injury, pain, redness, and discharge, ENT: Positive for ear pain. jr8 Negative for discharge, erythema, or hearing loss Neck: Negative for injury, pain, and swelling, Cardiovascular: Negative for chest pain, palpitations, and edema, Respiratory: Negative for shortness of breath, cough, wheezing, and pleuritic chest pain, Abdomen/GI: Negative for abdominal pain, diarrhea, and constipation. Positive for nausea and vomiting Back: Negative for injury and pain, MS/Extremity: Negative for injury and deformity, Skin: Negative for injury, rash, and discoloration. 09:28 Neuro: Positive for dizziness, gait disturbance. Exam: 09:28 Eyes: Pupils equal round and reactive to light, extra-ocular motions intact. Lids and jr8 lashes normal. Conjunctiva and sclera are non-icteric and not injected. Cornea within normal limits. Periorbital areas with no swelling, redness, or edema. ENT: Nares patent. No nasal discharge, no septal abnormalities noted. Tympanic membranes are normal and external auditory canals are clear. Oropharynx with no redness, swelling, or masses, exudates, or evidence of obstruction, uvula midline. Mucous membranes moist. Neck: Trachea midline, no thyromegaly or masses palpated, and no cervical lymphadenopathy. Supple, full range of motion without nuchal rigidity, or vertebral point tenderness. No Meningismus. Cardiovascular: Regular rate and rhythm with a normal S1 and S2. No gallops, murmurs, or rubs. Normal PMI, no JVD. No pulse deficits. Respiratory: Lungs have equal breath sounds bilaterally, clear to auscultation and percussion. No rales, rhonchi or wheezes noted. No increased work of breathing, no retractions or nasal flaring. Abdomen/GI: Soft, non-tender, with normal bowel sounds. No distension or tympany. No guarding or rebound. No evidence of tenderness throughout. Back: No spinal tenderness. No costovertebral tenderness. Full range of motion. Skin: Warm, dry with normal turgor. Normal color with no rashes, no lesions, and no evidence of cellulitis. MS/ Extremity: Pulses equal, no cyanosis. Neurovascular intact. Full, normal range of motion. 09:28 Neuro: Orientation: to person, place \T\ time. Mentation: is normal, Memory: is normal, Cranial nerves: CN I not tested, CN II- XII are normal as tested, visual schultz are intact. extraocular movements are intact, Facial palsy and sensory deficits are absent. Nystagmus is absent. Speech is clear and appropriate. Tongue strength is normal, Cerebellar function: Romberg testing is abnormal, falls to left , normal finger to nose testing, heel to leger testing is normal, Motor: moves all fours, strength is 5/5 in all extremities, Sensation: no obvious gross deficits, Gait: is unsteady, seizure activity, is not displayed by the patient, Abnormal movements: there are no abnormal movements. Vital Signs: 08:50 BP 140 / 68; Pulse 110; Resp 16; Temp 98.6; Pulse Ox 99% ; Weight 81.19 kg; Height 5 iw ft. 0 in. (152.40 cm); Pain 8/10; 09:45 BP 152 / 71; Pulse 105; Resp 14 S; Pulse Ox 100% on 2 lpm NC; aa5 11:10 BP 137 / 58; Pulse 100; Resp 19; Pulse Ox 98% on 2 lpm NC; jl7 08:50 Body Mass Index 34.96 (81.19 kg, 152.40 cm) iw MDM: 09:02 Patient medically screened. rn 10:19 Data reviewed: vital signs, nurses notes, lab test result(s), EKG, radiologic studies, [facility] CT scan, plain films. Data interpreted: Pulse oximetry: on room air is 100 %. Interpretation: normal. Counseling: I had a detailed discussion with the patient and/or guardian regarding: the historical points, exam findings, and any diagnostic results supporting the discharge/admit diagnosis, lab results, radiology results, the need for outpatient follow up, a neurologist, to return to the emergency department if symptoms worsen or persist or if there are any questions or concerns that arise at home. Response to treatment: the patient's symptoms have markedly improved after treatment. 06/09 09:10 Order name: Basic Metabolic Panel; Complete Time: 10:06/09 09:10 Order name: CBC with Diff; Complete Time: 10:06/09 09:10 Order name: LFT's; Complete Time: 10:06/09 09:10 Order name: Magnesium; Complete Time: 10:06/09 09:10 Order name: NT PRO-BNP; Complete Time: 10:06/09 09:10 Order name: PT-INR; Complete Time: 10:06/09 09:10 Order name: Troponin (emerg Dept Use Only); Complete Time: 10:06/09 09:10 Order name: XRAY Chest (1 view); Complete Time: 10:09 06/09 09:10 Order name: CT Head Brain wo Cont; Complete Time: 10:04 06/09 09:10 Order name: EKG; Complete Time: 09:11 06/09 09:10 Order name: Cardiac monitoring; Complete Time: 09:39 06/09 09:10 Order name: EKG - Nurse/Tech; Complete Time: 10:19 06/09 09:10 Order name: IV Saline Lock; Complete Time: :39 06/09 09:10 Order name: Labs collected and sent; Complete Time: :39 06/09 09:10 Order name: O2 Per Protocol; Complete Time: :06/09 09:10 Order name: O2 Sat Monitoring; Complete Time: :39 Administered Medications: 09:20 Drug: Meclizine 25 mg Route: PO; aa5 09:25 Drug: Zofran (Ondansetron) 4 mg Route: IVP; Site: right antecubital; aa5 09:28 Follow up: Response: No adverse reaction aa5 09:25 Drug: Valium 2 mg Route: IVP; Site: right antecubital; aa5 09:28 Follow up: Response: No adverse reaction aa5 10:19 Drug: TORadol - Ketorolac 15 mg Route: IVP; Site: right antecubital; aa5 10:25 Follow up: Response: No adverse reaction aa5 11:05 Drug: Zofran (Ondansetron) 4 mg Route: IVP; Site: right antecubital; jl7 11:20 Follow up: Response: Medication administered at discharge. jl7 Disposition: 16:27 Co-signature as Attending Physician, Neymar Shaffer MD. rn Disposition: 06/09/20 10:24 Discharged to Home. Impression: Benign paroxysmal vertigo. - Condition is Stable. - Discharge Instructions: Benign Positional Vertigo. - Prescriptions for Meclizine 25 mg Oral Tablet - take 1 tablet by ORAL route every 8 hours As needed; 30 tablet. Zofran 4 mg Oral Tablet - take 1 tablet by ORAL route every 12 hours As needed; 20 tablet. - Medication Reconciliation Form, Thank You Letter, Antibiotic Education, Prescription Opioid Use form. - Follow up: Tony Anderson MD; When: 2 - 3 days; Reason: Recheck today's complaints, Continuance of care, Re-evaluation by your physician. - Problem is new. - Symptoms have improved. Signatures: Dispatcher [employer] Renata Ren, RN RN Neymar Dasilva MD MD rn Calderon, Audri, RN RN aa5 Fransisco Ragland PA PA jr8 Chetan Rahman RN RN jl7 Corrections: (The following items were deleted from the chart) 11:20 10:24 06/09/2020 10:24 Discharged to Home. Impression: Benign paroxysmal vertigo. jl7 Condition is Stable. Forms are Medication Reconciliation Form, Thank You Letter, Antibiotic Education, Prescription Opioid Use. Follow up: Tony Anderson; When: 2 - 3 days; Reason: Recheck today's complaints, Continuance of care, Re-evaluation by your physician. Problem is new. Symptoms have improved. jr8
--- NOTE | 2020-06-09 10:26 | ER ---
Nurse's Notes [facility] Name: Dionne Lindo Age: 79 yrs Sex: Female : 1940 Arrival Date: 06/09/2020 Time: 08:35 Bed 23 Private MD: Tony Anderson Diagnosis: Benign paroxysmal vertigo Presentation: 06/09 08:49 Chief complaint: Chief complaint: Patient states: woke up with pain to right side of iw face, radiating to throat, can't hardly swallow, also has vertigo that started this morning , +nausea , no fever. 08:50 Coronavirus screen:. Ebola Screen: Patient negative for fever greater than or equal to iw 101.5 degrees Fahrenheit, and additional compatible Ebola Virus Disease symptoms Patient denies exposure to infectious person. Patient denies travel to an Ebola-affected area in the 21 days before illness onset. No symptoms or risks identified at this time. Initial Sepsis Screen: Does the patient meet any 2 criteria? No. Patient's initial sepsis screen is negative. Does the patient have a suspected source of infection? No. Patient's initial sepsis screen is negative. Risk Assessment: Do you want to hurt yourself or someone else? Patient reports no desire to harm self or others. Onset of symptoms was June 09, 2020. 08:50 Method Of Arrival: Wheelchair iw 08:50 Acuity: KARTHIK 3 iw Historical: - Allergies: 08:53 PENICILLINS; iw - Home Meds: 08:53 Ambien Oral [Active]; amlodipine 5 mg tab 1 tab once daily [Active]; losartan 100 mg iw Oral tab 1 tab once daily [Active]; potassium chloride 20 mEq Oral TbER 1 tab once daily [Active]; Tramadol Oral [Active]; - PMHx: 08:53 Hypertension; Hypokalemia; Sleep Apnea; Vertigo; iw - PSHx: 08:53 Cholecystectomy; neck sx for disc; bilateral knee sx; partial hysterectomy; back; iw - Social history:: Smoking status: . Screenin:02 Abuse screen: Denies threats or abuse. Nutritional screening: No deficits noted. rb1 Tuberculosis screening: No symptoms or risk factors identified. Assessment: 09:02 General: Appears uncomfortable, Behavior is calm, cooperative, Denies fever. Pain: rb1 Complains of pain in right mandible Pain does not radiate. Pain began 1 day ago. 09:02 Neuro: Level of Consciousness is awake, alert, obeys commands, Oriented to person, rb1 place, time, situation. Neuro: Reports dizziness, Denies blurred vision headache. Cardiovascular: Capillary refill < 3 seconds. Respiratory: Airway is patent Respiratory effort is even, unlabored, Respiratory pattern is regular, symmetrical. GI: Abdomen is non-distended, Reports nausea. : No signs and/or symptoms were reported regarding the genitourinary system. Derm: Skin is pink, warm \\T\\ dry. 09:02 EENT: Reports sore throat and pain with chewing. rb1 09:20 Reassessment: Patient is alert, oriented x 3, equal unlabored respirations, skin aa5 warm/dry/pink. No difficulties swallowing noted, pt tolerated water and able to swallow pills after. . 09:28 Reassessment: Pt sleepy after Valium administration, pt reports hx of sleep apnea and aa5 O2 was administered at 2 L NC, O2 sat 96% via 2 L NC. Pt now to CT via stretcher. . 09:40 Reassessment: Patient is alert, oriented x 3, equal unlabored respirations, skin aa5 warm/dry/pink. Pt back from CT via stretcher. Pt states feeling better, pt reports dizziness and nausea have improved, pt states "my right ear still hurts though". . 10:19 Reassessment: Patient is alert, oriented x 3, equal unlabored respirations, skin aa5 warm/dry/pink. Reassessment: Patient states feeling better. Patient states symptoms have improved. General: Appears comfortable. 11:00 Reassessment: Pt c/o nausea, ERP notified, see MAR for orders. jl7 Vital Signs: 08:50 BP 140 / 68; Pulse 110; Resp 16; Temp 98.6; Pulse Ox 99% ; Weight 81.19 kg; Height 5 iw ft. 0 in. (152.40 cm); Pain 8/10; 09:45 BP 152 / 71; Pulse 105; Resp 14 S; Pulse Ox 100% on 2 lpm NC; aa5 11:10 BP 137 / 58; Pulse 100; Resp 19; Pulse Ox 98% on 2 lpm NC; jl7 08:50 Body Mass Index 34.96 (81.19 kg, 152.40 cm) iw ED Course: 08:35 Patient arrived in ED. ag5 08:35 Tony Anderson MD is Private Physician. ag5 08:52 Triage completed. iw 08:53 Arm band placed on. iw 09:02 Neymar Shaffer MD is Attending Physician. rn 09:02 Fransisco Ragland PA is PHCP. jr8 09:02 Patient has correct armband on for positive identification. Bed in low position. Call rb1 light in reach. Side rails up X 1. Pulse ox on. NIBP on. Warm blanket given. 09:09 Maryanne Ngo, ANMOL is Primary Nurse. aa5 09:25 Initial lab(s) drawn, by md, sent to lab. Inserted saline lock: 20 gauge in right aa5 antecubital area, using aseptic technique. Blood collected. 09:36 CT Head Brain wo Cont In Process Unspecified. EDMS 09:49 XRAY Chest (1 view) In Process Unspecified. EDMS 10:24 Toyn Anderson MD is Referral Physician. jr8 11:18 No provider procedures requiring assistance completed. IV discontinued, intact, jl7 bleeding controlled, No redness/swelling at site. Pressure dressing applied. Administered Medications: 09:20 Drug: Meclizine 25 mg Route: PO; aa5 09:25 Drug: Zofran (Ondansetron) 4 mg Route: IVP; Site: right antecubital; aa5 09:28 Follow up: Response: No adverse reaction aa5 09:25 Drug: Valium 2 mg Route: IVP; Site: right antecubital; aa5 09:28 Follow up: Response: No adverse reaction aa5 10:19 Drug: TORadol - Ketorolac 15 mg Route: IVP; Site: right antecubital; aa5 10:25 Follow up: Response: No adverse reaction aa5 11:05 Drug: Zofran (Ondansetron) 4 mg Route: IVP; Site: right antecubital; jl7 11:20 Follow up: Response: Medication administered at discharge. jl7 Outcome: 10:24 Discharge ordered by . jr8 11:18 Discharged to home via wheelchair, with family. jl7 11:18 Condition: stable 11:18 Discharge instructions given to patient, family, Instructed on discharge instructions, follow up and referral plans. medication usage, Demonstrated understanding of instructions, follow-up care, medications, Prescriptions given X 2. 11:20 Patient left the ED. jl7 Signatures: Dispatcher [employer] EDRenata Riggs, RN RN iw Neymar Shaffer MD MD rn Calderon, Audri RN RN aa5 Fransisco Ragland PA PA jr8 Norma Barry, RN RN rb1 Chetan Rahman RN RN jl7 Blanca Malik 5 Corrections: (The following items were deleted from the chart) 08:52 08:49 Chief complaint: iw iw 08:53 08:50 Pulse 110bpm; Resp 16bpm; Pulse Ox 99%; Temp 98.6F; 81.19 kg; Height 5 ft. 0 in.; iw BMI: 34.9; Pain 8/10; iw 13:47 10:29 Reassessment: Patient is alert, oriented x 3, equal unlabored respirations, skin aa5 warm/dry/pink. aa5 13:47 10:29 General: Appears comfortable, aa5 aa5 13:47 10:29 Reassessment: Patient states feeling better. Patient states symptoms have aa5 improved. aa5
[2020-06-09] MEDS ORDERED: KETOROLAC 30 MG/ML INJ ONE (10:29)
[2020-06-09 11:29] VITALS: TEMP 98.6
[2020-06-09 11:31] VITALS: BP 137/58; O2SAT 98
== END 2020-06-09 11:20 | disposition home or self-care (01) ==
LOC: ER 08:33
DX: H81.10 Benign paroxysmal vertigo, unspecified ear (principal); I10 Essential (primary) hypertension; Z88.0 Allergy status to penicillin
CPT/HCPCS: 93005; 85025; 80048; 36415; 83735; 85610; 80076; 84484; 83880; 70450; 71045; 96375; 96374; 99284; J3360; J2405 ×2; J8597

== ENCOUNTER 2021-02-26 16:26 | Emergency (ER) | payer OTHER ==
--- OUTSIDE RECORDS SUMMARY | 2021-02-26 16:27 | XMS REPORT | Continuity of Care Document ---
:[address] [facility] t Address [address] [place] [address] [address] [place] [address] Care Team Providers Name Role Phone Therapy, [...] Facility Department ID 2020-01-01 2020-01-01 Ancillary Therapy, [facility] [id number] 11:42:44 12:42:44 Visit [facility] [id number] Occup Clear [id number] [place] [phone] Medical [address] 2020-01-01 2020-01-01 Orders Doctor FLORIN [id number] 00:00:00 00:00:00 Only UnassignedMARLO [id number] [place] [facility] [phone] [id number] Results This patient has no known results.
[2021-02-26 17:39] LABS: Absolute Lymphocytes (CBC) 0.4 K/uL (0.7-4.9); Basophils % 0.3 % (0-1.3); Hematocrit 44.3 % (36.0-45.0); MPV 9.2 fL (7.6-11.3); RBC Red Blood Cell Count 4.65 M/uL (3.86-4.86)
[2021-02-26] MEDS ORDERED: ONDANSETRON 4 MG/2 ML VIAL ONE ×2 (17:53→20:24)
[2021-02-26] MEDS ORDERED: NA CHLORIDE 0.9% 500 ML ONE (17:53)
[2021-02-26] MEDS ORDERED: MORPHINE 2 MG/ML SYR ONE (17:53)
[2021-02-26 17:55] LABS: ALT/SGPT 17 U/L (12-78); AST/SGOT 17 U/L (15-37); Albumin 3.6 g/dL (3.4-5.0); Alkaline Phosphatase 84 U/L (45-117); BUN Blood Urea Nitrogen 15 mg/dL (7-18); Bicarbonate 23 mmol/L (21-32); Bilirubin Direct 0.1 mg/dL (0-0.2); Bilirubin Total 0.5 mg/dL (0.2-1.0); Glucose Level 122 mg/dL (74-106); Lipase 101 U/L (73-393); Potassium 3.8 mmol/L (3.5-5.1); Protein, Total 7.7 g/dL (6.4-8.2); Sodium Level 141 mmol/L (136-145); Troponin (Emerg Dept Use Only) < 0.02 ng/mL (0.0-0.045)
--- NOTE | 2021-02-26 18:48 | RAD REPORT ---
EXAM DESCRIPTION: CT - Abdomen Pelvis W Contrast - 02/26/2021 6:40 pm CLINICAL HISTORY: ABD PAIN COMPARISON: Abdomen Pelvis W Contrast dated 09/11/2018 TECHNIQUE: Biphasic, helical CT imaging of the abdomen and pelvis was performed following 100 ml non -ionic IV contrast. No oral contrast given. All CT scans are performed using dose optimization technique as appropriate and may include automated exposure control or mA/KV adjustment according to patient size. FINDINGS: No suspicious findings in the lung bases. The liver, spleen, and pancreas show no suspicious findings. Borderline to mild diffuse fatty infiltr ation noted. No portal vein abnormality. Cholecystectomy clips are present. No biliary tree dilatatio n. Symmetric renal function is seen with no hydronephrosis or suspicious renal mass. No pyelonephritis o r acute parenchymal process. Partially filled urinary bladder shows suspicious. No adrenal abnormalit ies. Uterus is absent. Atrophic ovaries show no suspicious findings. No dilated bowel loops or bowel wall thickening. A few prominent fluid-filled small bowel loops are p resent. There is fluid in nondilated colon. No free air, free fluid or inflammatory stranding. No he rnia, mass or bulky lymphadenopathy. No suspicious bony findings. IMPRESSION: Contrast enhanced CT abdomen and pelvis showing no acute or emergent finding. A few mildly prominent small bowel loops fluid in the colon could indicate a nonspecific enteritis.
--- NOTE | 2021-02-26 20:15 | ER ---
Nurse's Notes [facility] Name: Dionne Lindo Age: 80 yrs Sex: Female : 1940 Arrival Date: 02/26/2021 Time: 16:29 Bed 7 Private MD: Diagnosis: Vomiting;Generalized abdominal pain;Enteritis Presentation: 02/26 17:04 Chief complaint: Patient states: N/V/D with weakness since 4 am. Zofran didn't help ll1 much. Other family members are also sick with nausea and fever. Coronavirus screen: Client denies travel out of the [place] in the last 14 days. diarrhea, nausea, vomiting. Client presents with at least one sign or symptom that may indicate coronavirus-19. Standard/surgical mask placed on the client. Ebola Screen: Patient denies travel to an Ebola-affected area in the 21 days before illness onset. Initial Sepsis Screen: Does the patient meet any 2 criteria? HR > 90 bpm. No. Patient's initial sepsis screen is negative. Does the patient have a suspected source of infection? Yes: Acute abdominal pain. Risk Assessment: Do you want to hurt yourself or someone else? Patient reports no desire to harm self or others. Onset of symptoms was February 26, 2021. 17:04 Method Of Arrival: Wheelchair ll1 17:04 Acuity: KARTHIK 3 ll1 Historical: - Allergies: 17:04 PENICILLINS; ll1 - Home Meds: 19:43 Ambien Oral [Active]; amlodipine 5 mg tab 1 tab once daily [Active]; losartan 100 mg lp1 Oral tab 1 tab once daily [Active]; potassium chloride 20 mEq Oral TbER 1 tab once daily [Active]; Tramadol Oral [Active]; - PMHx: 17:04 Hypertension; Hypokalemia; Sleep Apnea; Vertigo; ll1 - PSHx: 17:04 Cholecystectomy; neck sx for disc; bilateral knee sx; partial hysterectomy; back; ll1 - Immunization history:: Client reports receiving the 1st dose of the Covid vaccine, Flu vaccine is not up to date. - Social history:: Smoking status: Patient denies any tobacco usage or history of. Screenin:42 Abuse screen: Denies threats or abuse. Denies injuries from another. Nutritional lp1 screening: No deficits noted. Tuberculosis screening: No symptoms or risk factors identified. Fall Risk Total Valentine Fall Scale indicates High Risk Score (45 or more points). Fall prevention measures have been instituted. Side Rails Up X 2 As available patient and family educated on Fall Prevention Program and Strategies. Assessment: 17:30 General: Appears in no apparent distress. uncomfortable, Behavior is calm, cooperative, jd3 appropriate for age. Pain: Complains of pain in abdomen Quality of pain is described as sharp, stabbing. Neuro: Level of Consciousness is awake, alert, obeys commands, Oriented to person, place, time, situation. Cardiovascular: Capillary refill < 3 seconds Patient's skin is warm and dry. Respiratory: Airway is patent Respiratory effort is even, unlabored, Respiratory pattern is regular, symmetrical, Denies cough, shortness of breath. GI: Abdomen is round non-distended, Abd is soft X 4 quads Abdomen is tender to palpation X 4 quads. Reports lower abdominal pain, upper abdominal pain, nausea, vomiting. : No signs and/or symptoms were reported regarding the genitourinary system. EENT: No signs and/or symptoms were reported regarding the EENT system. Derm: Skin is intact, Skin is dry, Skin is normal, Skin temperature is warm. Musculoskeletal: Circulation, motion, and sensation intact. Range of motion: intact in all extremities. 18:30 Reassessment: Patient appears in no apparent distress at this time. Patient and/or jd3 family updated on plan of care and expected duration. Pain level reassessed. Patient is alert, oriented x 3, equal unlabored respirations, skin warm/dry/pink. Patient states feeling better. 19:41 Reassessment: Patient is alert, oriented x 3, equal unlabored respirations, skin lp1 warm/dry/pink. Reports some nausea at this time; Provider verbal order for PO challenge, water given to patient Patient states feeling better. 20:00 Reassessment: Assited patient to bathroom via WC, nausea noted, no emesis; Provider lp1 notified, verbal order given. 20:36 Reassessment: Patient reports no relief with medication administered for nausea; lp1 Provider notified. 22:26 Reassessment: Patient reports significant improvement from nausea; states readiness to lp1 go home, daughter at bedside. Vital Signs: 17:04 BP 149 / 66; Pulse 106; Resp 18; Temp 98.4; Pulse Ox 97% on R/A; Weight 80.74 kg; ll1 Height 5 ft. 0 in. (152.40 cm); Pain 7/10; 19:17 BP 124 / 52; Pulse 87; Resp 18 S; Pulse Ox 99% on R/A; jd3 19:41 BP 136 / 67; Pulse 89; Resp 18; Pulse Ox 96% on R/A; lp1 20:30 BP 132 / 62; Pulse 91; Resp 18; Pulse Ox 94% on R/A; lp1 21:30 BP 115 / 50; Pulse 86; Resp 18; Pulse Ox 94% on R/A; lp1 22:27 BP 133 / 53; Pulse 87; Resp 18; Pulse Ox 99% on R/A; Pain 0/10; lp1 17:04 Body Mass Index 34.76 (80.74 kg, 152.40 cm) ll1 ED Course: 16:29 Patient arrived in ED. bp1 17:03 Arm band placed on Patient placed in an exam room, on a stretcher. ll1 17:06 Triage completed. ll1 17:11 Robles Batista PA is PHCP. jmm 17:11 Delmar Bonilla MD is Attending Physician. jmm 17:19 Bassam Brown, RN is Primary Nurse. jd3 18:40 CT Abd/Pelvis - IV Contrast Only In Process Unspecified. EDMS 19:42 Patient has correct armband on for positive identification. Bed in low position. Call lp1 light in reach. Pulse ox on. NIBP on. 20:08 Primary Nurse role handed off by Bassam Brown, ANMOL tt3 20:36 Janel Villegas, ANMOL is Primary Nurse. lp1 22:20 No provider procedures requiring assistance completed. IV discontinued, No lp1 redness/swelling at site. Pressure dressing applied. Administered Medications: 17:39 Drug: NS 0.9% 500 ml Route: IV; Rate: bolus; Site: right antecubital; jd3 17:39 Drug: Zofran (Ondansetron) 4 mg Route: IVP; Site: right antecubital; jd3 17:39 Drug: morphine 2 mg Route: IVP; Site: right antecubital; jd3 20:08 Drug: Zofran (Ondansetron) 4 mg {Note: verbal order per PA. Akash} Route: IVP; lp1 Site: right antecubital; 20:37 Follow up: Response: No change in condition lp1 21:33 Drug: Reglan (metoCLOPramide) 10 mg Route: IVP; Site: right antecubital; lp1 22:15 Follow up: Response: No adverse reaction; Marked relief of symptoms lp1 21:33 Drug: diphenhydrAMINE 12.5 mg Route: IVP; Site: right antecubital; lp1 22:15 Follow up: Response: No adverse reaction; Marked relief of symptoms lp1 21:33 Drug: NS 0.9% 250 ml Route: IV; Rate: per protocol; Site: right antecubital; lp1 22:15 Follow up: IV Status: Completed infusion; IV Intake: 250ml lp1 Intake: 22:15 IV: 250ml; Total: 250ml. lp1 Outcome: 20:14 Discharge ordered by . darryn 22:30 Discharged to home via wheelchair, with family. lp1 22:30 Condition: good 22:30 Discharge instructions given to patient, family, Instructed on discharge instructions, follow up and referral plans. medication usage, Demonstrated understanding of instructions, follow-up care, medications, Prescriptions given X 2. 22:38 Patient left the ED. ea Signatures: Dispatcher [employer] EDMS Robles Batista PA PA jmm Pena, Laura, RN RN lp1 Alaina Whalen RN RN ea Davies, Jonathon, RN RN jd3 Lewis, Lynsay, RN RN ll1 Lyric Vuong [place] tt3
--- NOTE | 2021-02-26 20:15 | EDPHYS ---
Physician Documentation [facility] Name: Dionne Lindo Age: 80 yrs Sex: Female : 1940 Arrival Date: 02/26/2021 Time: 16:29 Bed 7 Private MD: PEPE Physician Delmar Bonilla HPI: 02/26 17:12 This 80 yrs old Female presents to ER via Wheelchair with complaints of jmm Nausea/Vomiting/Diarrhea. 17:12 The patient presents to the emergency department with nausea, vomiting, diarrhea, jmm abdominal pain. Onset: The symptoms/episode began/occurred gradually, 1 day(s) ago. Possible causes: sick contacts, by family. The symptoms are aggravated by nothing. The symptoms are alleviated by nothing. Associated signs and symptoms: Pertinent positives: abdominal pain. The patient has experienced similar episodes in the past. Historical: - Allergies: 17:04 PENICILLINS; ll1 - Home Meds: 19:43 Ambien Oral [Active]; amlodipine 5 mg tab 1 tab once daily [Active]; losartan 100 mg lp1 Oral tab 1 tab once daily [Active]; potassium chloride 20 mEq Oral TbER 1 tab once daily [Active]; Tramadol Oral [Active]; - PMHx: 17:04 Hypertension; Hypokalemia; Sleep Apnea; Vertigo; ll1 - PSHx: 17:04 Cholecystectomy; neck sx for disc; bilateral knee sx; partial hysterectomy; back; ll1 - Immunization history:: Client reports receiving the 1st dose of the Covid vaccine, Flu vaccine is not up to date. - Social history:: Smoking status: Patient denies any tobacco usage or history of. ROS: 17:12 Constitutional: Negative for fever, chills, and weight loss, Cardiovascular: Negative jmm for chest pain, palpitations, and edema, Respiratory: Negative for shortness of breath, cough, wheezing, and pleuritic chest pain. 17:12 Abdomen/GI: Positive for abdominal pain, nausea and vomiting, diarrhea. 17:12 All other systems are negative. Exam: 17:12 Head/Face: atraumatic. Eyes: EOMI, no conjunctival erythema appreciated ENT: Moist jmm Mucus Membranes Neck: Trachea midline, Supple Chest/axilla: Normal chest wall appearance and motion. Cardiovascular: Regular rate and rhythm. No edema appreciated Respiratory: Normal respirations, no respiratory distress appreciated 17:12 Back: Normal ROM Skin: General appearance color normal MS/ Extremity: Moves all extremities, no obvious deformities appreciated, no edema noted to the lower extremities Neuro: Awake and alert, normal gait Psych: Behavior is normal, Mood is normal, Patient is cooperative and pleasant 17:12 Constitutional: The patient appears alert, awake, uncomfortable. 17:12 Abdomen/GI: Inspection: abdomen appears normal, Bowel sounds: normal, Palpation: soft, moderate abdominal tenderness, in the epigastric area, right upper quadrant and left upper quadrant. Vital Signs: 17:04 BP 149 / 66; Pulse 106; Resp 18; Temp 98.4; Pulse Ox 97% on R/A; Weight 80.74 kg; ll1 Height 5 ft. 0 in. (152.40 cm); Pain 7/10; 19:17 BP 124 / 52; Pulse 87; Resp 18 S; Pulse Ox 99% on R/A; jd3 19:41 BP 136 / 67; Pulse 89; Resp 18; Pulse Ox 96% on R/A; lp1 20:30 BP 132 / 62; Pulse 91; Resp 18; Pulse Ox 94% on R/A; lp1 21:30 BP 115 / 50; Pulse 86; Resp 18; Pulse Ox 94% on R/A; lp1 22:27 BP 133 / 53; Pulse 87; Resp 18; Pulse Ox 99% on R/A; Pain 0/10; lp1 17:04 Body Mass Index 34.76 (80.74 kg, 152.40 cm) ll1 MDM: 17:12 Patient medically screened. [facility] 20:11 Data reviewed: vital signs, nurses notes. Counseling: I had a detailed discussion with darryn the patient and/or guardian regarding: the historical points, exam findings, and any diagnostic results supporting the discharge/admit diagnosis, lab results, radiology results, the need for outpatient follow up, to return to the emergency department if symptoms worsen or persist or if there are any questions or concerns that arise at home. ED course: Patient is alert and non toxic in appearance in the ED. CT reveals enteritis. Patient is advised to follow up with pcp and otherwise given strict return precautions. Patient understood and agrees with the plan of care. . 02/26 17:15 Order name: Basic Metabolic Panel; Complete Time: 18:00 [facility] 02/26 17:15 Order name: CBC with Diff; Complete Time: 18:00 [facility] 02/26 17:15 Order name: Hepatic Function; Complete Time: 18:00 [facility] 02/26 17:15 Order name: Lipase; Complete Time: 18:00 [facility] 02/26 17:15 Order name: Troponin (emerg Dept Use Only); Complete Time: 18:00 [facility] 02/26 17:15 Order name: CT Abd/Pelvis - IV Contrast Only; Complete Time: 18:59 [facility] 02/26 17:15 Order name: IV Saline Lock; Complete Time: 17:29 [facility] 02/26 17:15 Order name: Labs collected and sent; Complete Time: 17:30 jm Administered Medications: 17:39 Drug: NS 0.9% 500 ml Route: IV; Rate: bolus; Site: right antecubital; jd3 17:39 Drug: Zofran (Ondansetron) 4 mg Route: IVP; Site: right antecubital; jd3 17:39 Drug: morphine 2 mg Route: IVP; Site: right antecubital; jd3 20:08 Drug: Zofran (Ondansetron) 4 mg {Note: verbal order per PA. Akash} Route: IVP; lp1 Site: right antecubital; 20:37 Follow up: Response: No change in condition lp1 21:33 Drug: Reglan (metoCLOPramide) 10 mg Route: IVP; Site: right antecubital; lp1 22:15 Follow up: Response: No adverse reaction; Marked relief of symptoms lp1 21:33 Drug: diphenhydrAMINE 12.5 mg Route: IVP; Site: right antecubital; lp1 22:15 Follow up: Response: No adverse reaction; Marked relief of symptoms lp1 21:33 Drug: NS 0.9% 250 ml Route: IV; Rate: per protocol; Site: right antecubital; lp1 22:15 Follow up: IV Status: Completed infusion; IV Intake: 250ml lp1 Disposition: 02/27 07:30 Co-signature as Attending Physician, Delmar FRANCO I agree with the assessment and dragan plan of care. Disposition: 02/26/21 20:14 Discharged to Home. Impression: Vomiting, Generalized abdominal pain, Enteritis. - Condition is Stable. - Discharge Instructions: Abdominal Pain, Adult, Nausea and Vomiting, Adult. - Prescriptions for Zofran ODT 4 mg Oral tablet,disintegrating - place 1 tablet by TRANSLINGUAL route every 4-6 hours; 20 tablet. Bentyl 20 mg Oral Tablet - take 2 tablet by ORAL route every 6 hours As needed; 40 tablet. - Medication Reconciliation Form, Thank You Letter, Antibiotic Education, Prescription Opioid Use form. - Follow up: Private Physician; When: 2 - 3 days; Reason: Recheck today's complaints, Continuance of care, Re-evaluation by your physician. Signatures: Dispatcher [employer] EDMS Delmar Bonilla MD MD cha Mickail, Joel, PA PA jmm Pena, Laura, RN RN lp1 Alaina Whalen RN RN Bassam Lagos, RN RN jd3 Margot Stewart, RN RN ll1 Corrections: (The following items were deleted from the chart) 02/26 22:38 20:14 02/26/2021 20:14 Discharged to Home. Impression: Vomiting; Generalized abdominal ea pain; Enteritis. Condition is Stable. Forms are Medication Reconciliation Form, Thank You Letter, Antibiotic Education, Prescription Opioid Use. Follow up: Private Physician; When: 2 - 3 days; Reason: Recheck today's complaints, Continuance of care, Re-evaluation by your physician. darryn
[2021-02-26] MEDS ORDERED: NA CHLORIDE 0.9% 250 ML ONE (21:40)
[2021-02-26] MEDS ORDERED: METOCLOPRAMIDE 10 MG/2mL INJ ONE (21:40)
[2021-02-26] MEDS ORDERED: DIPHENHYDRAMINE 50 MG/ML VIAL ONE (21:40)
[2021-02-26 22:47] VITALS: TEMP 98.4
[2021-02-26 22:55] VITALS: BP 133/53; O2SAT 99
== END 2021-02-26 22:38 | disposition home or self-care (01) ==
LOC: ER 16:26
DX: K52.9 Noninfective gastroenteritis and colitis, unspecified (principal); R11.10 Vomiting, unspecified; I10 Essential (primary) hypertension; Z88.0 Allergy status to penicillin
CPT/HCPCS: 96365; 85025; 80048; 36415; 80076; 84484; 83690; 74177; 96375; 99284; Q9967; J2765; J1200; J2270; J7050; J7040; J2405 ×2

== ENCOUNTER 2021-05-10 10:48 | Emergency (ER) | payer OTHER ==
--- OUTSIDE RECORDS SUMMARY | 2021-05-10 10:51 | XMS REPORT | Continuity of Care Document ---
:1940 Author Organization [facility] t Address [address] [place] [address] [address] [place] [address] Care Team Providers Name Role Phone Therapy, [...] Department ID 2020-01-01 2020-01-01 Ancillary Therapy, [facility] [id number] 11:42:44 12:42:44 Visit [facility] [id number] Occup Clear [id number] [place] [phone] Medical [address] 2020-01-01 2020-01-01 Orders Doctor FLORIN [id number] 00:00:00 00:00:00 Only UnassignedMARLO [id number] [place] [facility] [id number] Results This patient has no known results.
--- NOTE | 2021-05-10 12:12 | ER ---
Nurse's Notes [facility] Name: Dionne Lindo Age: 80 yrs Sex: Female : 1940 Arrival Date: 05/10/2021 Time: 10:53 Bed Treatment Private MD: Diagnosis: Low back pain-chronic Presentation: 05/10 12:07 Chief complaint: Patient states: Chronic low back pain x 2 days, called PCP this jl7 morning and he sent me here. Coronavirus screen: Client denies travel out of the [place] in the last 14 days. At this time, the client does not indicate any symptoms associated with coronavirus-19. Ebola Screen: No symptoms or risks identified at this time. Initial Sepsis Screen: Does the patient meet any 2 criteria? No. Patient's initial sepsis screen is negative. Does the patient have a suspected source of infection? No. Patient's initial sepsis screen is negative. Risk Assessment: Do you want to hurt yourself or someone else? Patient reports no desire to harm self or others. Onset of symptoms was May 09, 2021. 12:07 Method Of Arrival: Wheelchair jl7 12:07 Acuity: KARTHIK 4 jl7 Triage Assessment: 12:09 General: Appears in no apparent distress. uncomfortable, Behavior is calm, cooperative, jl7 appropriate for age. Pain: Complains of pain in low back area Pain currently is 8 out of 10 on a pain scale. Musculoskeletal: Swelling absent. Historical: - Allergies: 12:09 PENICILLINS; jl7 - PMHx: 12:09 Hypertension; Hypokalemia; Sleep Apnea; Vertigo; jl7 - Immunization history:: Client reports receiving the 2nd dose of the Covid vaccine. - Social history:: Smoking status: Patient denies any tobacco usage or history of. Screenin:09 Abuse screen: Denies threats or abuse. Denies injuries from another. Nutritional jl7 screening: No deficits noted. Tuberculosis screening: No symptoms or risk factors identified. Fall Risk None identified. Assessment: 12:09 Reassessment: EYAL Quigley in triage assessing pt. jl7 Vital Signs: 12:07 BP 148 / 67; Pulse 84; Resp 17; Temp 97.8; Pulse Ox 97% on R/A; Weight 80.74 kg; Height jl7 5 ft. 0 in. (152.40 cm); Pain 8/10; 12:07 Body Mass Index 34.76 (80.74 kg, 152.40 cm) jl7 ED Course: 10:53 Patient arrived in ED. ds1 12:08 Triage completed. jl7 12:09 [facility] kb 12:09 Austin Grace MD is Attending Physician. kb 12:09 Arm band placed on right wrist. jl7 12:09 Patient has correct armband on for positive identification. jl7 12:09 No provider procedures requiring assistance completed. Patient did not have IV access jl7 during this emergency room visit. 12:38 Sahara Pedersen, RN is Primary Nurse. kg Administered Medications: 12:30 Drug: SOLU-Medrol (methylPREDNISolone sodium succinate) 125 mg Route: IM; Site: left kg deltoid; 12:30 Drug: [place] (HYDROcodone-acetaminophen) (7.5 mg-325 mg) 1 tabs Route: PO; kg 12:38 Drug: predniSONE 40 mg Route: PO; kg Outcome: 12:11 Discharge ordered by MD. kb 12:38 Discharged to home via wheelchair. kg 12:38 Condition: good 12:38 Discharge instructions given to patient, Instructed on discharge instructions, follow up and referral plans. Demonstrated understanding of instructions, follow-up care, medications, Prescriptions given X 1. 12:53 Patient left the ED. kg Signatures: Soraida Haney FNP-C FNP-Shante Graza ds1 Chetan Rahman RN RN jl7 Sahara Pedersen, RN RN kg
--- NOTE | 2021-05-10 12:12 | EDPHYS ---
Physician Documentation [facility] Name: Dionne Lindo Age: 80 yrs Sex: Female : 1940 Arrival Date: 05/10/2021 Time: 10:53 Bed Treatment Private MD: ED Physician Austin Grace HPI: 05/10 16:26 This 80 yrs old Female presents to ER via Wheelchair with complaints of Back kb Pain. 16:26 The patient presents with pain that is chronic, with no known mechanism of injury. The kb symptoms are located in the low back. Onset: The symptoms/episode began/occurred 2 day(s) ago. The pain does not radiate. Associated signs and symptoms: The patient has no apparent associated signs or symptoms. The problem was sustained from a chronic condition. Modifying factors: The patient symptoms are alleviated by nothing, the patient symptoms are aggravated by any movement. Severity of symptoms: At their worst the symptoms were moderate, in the emergency department the symptoms are unchanged. The patient has experienced similar episodes in the past, chronically. The patient has not recently seen a physician. Pt reports chronic low back pain, this time has lasted 2 days. States "its the same old pain i'm used to." PT called her pain management dr that normally gives her medication for this, but he was unable to see her so instructed her to come to the ER. Pain all the way across lower back.. Historical: - Allergies: 12:09 PENICILLINS; jl7 - PMHx: 12:09 Hypertension; Hypokalemia; Sleep Apnea; Vertigo; jl7 - Immunization history:: Client reports receiving the 2nd dose of the Covid vaccine. - Social history:: Smoking status: Patient denies any tobacco usage or history of. ROS: 16:26 Constitutional: Negative for fever, chills, and weight loss. kb 16:26 Back: Positive for of the low back area, Negative for injury or acute deformity, decreased range of motion, pain at rest, pain with movement, radiated pain. 16:26 All other systems are negative. Exam: 16:26 Constitutional: This is a well developed, well nourished patient who is awake, alert, kb and in no acute distress. Head/Face: Normocephalic, atraumatic. ENT: Moist Mucous membranes Respiratory: Respirations even and unlabored. No increased work of breathing, no retractions or nasal flaring. Skin: Warm, dry with normal turgor. Normal color. MS/ Extremity: Pulses equal, no cyanosis. Neurovascular intact. Full, normal range of motion. Neuro: Awake and alert, GCS 15, oriented to person, place, time, and situation. Moves all extremities. Normal gait. Psych: Awake, alert, with orientation to person, place and time. Behavior, mood, and affect are within normal limits. 16:26 Back: pain, that is moderate, of the low back area, ROM is painful, with all movement, normal spinal alignment noted, CVA tenderness, is absent, vertebral tenderness, is not appreciated. 16:29 Neuro: Exam negative for acute changes. kb Vital Signs: 12:07 BP 148 / 67; Pulse 84; Resp 17; Temp 97.8; Pulse Ox 97% on R/A; Weight 80.74 kg; Height jl7 5 ft. 0 in. (152.40 cm); Pain 8/10; 12:07 Body Mass Index 34.76 (80.74 kg, 152.40 cm) jl7 MDM: 12:09 Patient medically screened. kb 16:26 Data reviewed: vital signs, nurses notes. Data interpreted: Pulse oximetry: on room air kb is 97 %. Interpretation: normal. Counseling: I had a detailed discussion with the patient and/or guardian regarding: the historical points, exam findings, and any diagnostic results supporting the discharge/admit diagnosis, the need for outpatient follow up, a structural steel painter, to return to the emergency department if symptoms worsen or persist or if there are any questions or concerns that arise at home. Administered Medications: 12:30 Drug: SOLU-Medrol (methylPREDNISolone sodium succinate) 125 mg Route: IM; Site: left kg deltoid; 12:30 Drug: [place] (HYDROcodone-acetaminophen) (7.5 mg-325 mg) 1 tabs Route: PO; kg 12:38 Drug: predniSONE 40 mg Route: PO; kg Disposition: 05/11 07:17 Co-signature as Attending Physician, Austin Grace MD I agree with the assessment and kdr plan of care. Disposition Summary: 05/10/21 12:11 Discharge Ordered Location: Home Condition: Stable kb Diagnosis - Low back pain - chronic kb Followup: kb - With: Emergency Department - When: As needed - Reason: Worsening of condition Followup: kb - With: Private Physician - When: 2 - 3 days - Reason: Recheck today's complaints, Continuance of care, Re-evaluation by your physician Discharge Instructions: - Discharge Summary Sheet kb - Chronic Back Pain, [id number] kb Forms: - Medication Reconciliation Form kb - Thank You Letter kb - Antibiotic Education kb - Prescription Opioid Use kb Prescriptions: - Medrol (Jacob) 4 mg Oral Tablets, Dose Pack - take 1 tablet by ORAL route as directed - follow package instructions; 1 kb packet; Refills: 0, Product Selection Permitted Signatures: Soraida Haney, SENIOR PROCUREMENT SPECIALIST-C SENIOR PROCUREMENT SPECIALIST-Ckb Austin Grace MD MD kdr Leal, Jahala RN RN jl7 Sahara Pedersen RN RN kg
[2021-05-10] MEDS ORDERED: METHYLPREDNISOLONE 125 MG INJ ONE (12:53)
[2021-05-10] MEDS ORDERED: HYDROCODONE/APAP 7.5/325 MG TAB ONE (12:53)
[2021-05-10] MEDS ORDERED: predniSONE 20 MG TAB ONE (12:53)
[2021-05-10 12:58] VITALS: BP 148/67; TEMP 97.8; O2SAT 97
== END 2021-05-10 12:53 | disposition home or self-care (01) ==
LOC: ER 10:48
DX: M54.5 Low back pain (principal); I10 Essential (primary) hypertension; Z88.0 Allergy status to penicillin
CPT/HCPCS: 96372; 99283; J2930; J7512

== ENCOUNTER 2022-02-18 02:29 | Emergency (ER) | payer OTHER ==
--- OUTSIDE RECORDS SUMMARY | 2022-02-18 02:32 | XMS REPORT | Continuity of Care Document ---
:1940 Author Organization [facility] t Address [address] [place] [address] Dr. Hol[address] [place] [address] Care Team Providers Name Role Phone Monica Primary Care Physician Pob, Lab Main Attending Clinician Unavailable Vasiliy FRANCO, S Attending Clinician Gege AMANDA Attending Clinician Unavailable Doctor Unassigned, Name Attending Clinician Unavailable Therapy, Bls Occup Attending Clinician Unavailable Shell VASQUEZ Attending Clinician Unavailable Payers Payer Name Policy Policy Number Effective Expiration Source Type Date Date MEDICAREMEDICARE [id number] 2007 Univers ity of PART A & 00:00:00 [facility] [id number]/ [facility] [id number] [id number] LUIS STEELE [id number] AETNAAETNA [id number] 2013 [facility] OUT OF 00:00:00 [facility] edical [id number]/ [place] /2013-HMO Problems Condition Condition Condition Status Onset Resolution Last Treating Co mments Source Name Details Category Date Date Treatment Clinician Date Limitation Limitation Disease Active U nivers of joint of joint 4- [place] 00 [place] Edema of Edema of Disease Active Unive rs hand hand 4-03 ity of 00:00: [place] 00 [facility] [place] Decreased Decreased Disease Active Uni vers independen independen 4-03 it y of ce with ce with 00:00: [place] activities activities 00 Me dical of daily of daily Branch living living Allergies, Adverse Reactions, Alerts Allergy Allergy Status Severity Reaction(s) Onset Inactive Treating Comm ents Source Name Type Date Date Clinician NO KNOWN Drug Active Univers ALLERGIE Class ity of S [facility] [place] [facility] Social History Social Habit Start Date Stop Date Quantity Comments Source Sex Assigned At [birth year] [facility] 00:00:00 00:00:00 [facility] Smoking Status Start Date Stop Date Source Unknown if ever smoked [facility] Medications This patient has no known medications. Procedures Procedure Date / Time Performed Performing Clinician Sour e ASSIGNMENT OF BENEFITS 2021-05-24 19:34:59 Doctor Unassigned, No [facility] PHYSICIAN ORDERS 2021-05-16 05:01:00 Doctor Unassigned, No Unive [facility] Encounters Start End Encounter Admission Attending Care Care Encounter Source Date/Time Date/Time Type Type Clinicians Facility Department ID 2021-05-24 2021-05-24 Lumber Carrier Alfa, Aleshia Lab Main [facility] 1.2.8 [id number] Univers 14:39:31 14:54:31 Visit Xander Amanda [place] 350.1.13.1 0 ity [facility] [id number] [place] [id number] Ri dical [address] 2021-05-24 2021-05-24 Outpatient R [facility] [id number] Univers 13:45:00 13:45:00 [id number] ity [facility] 2021-05-24 2021-05-24 Outpatient R VASILIY [facility] [id number] Univers 13:45:00 13:45:00 XANDER ity [facility] 2021-05-24 2021-05-24 Orders Doctor CATHERINE [id number] Univers 00:00:00 00:00:00 Only UnassignedMARLO [id number] ity [facility] [id number] Chad as [id number] [address] 2021-05-16 2021-05-16 Orders Doctor CATHERINE [id number] Univers 00:00:00 00:00:00 Only UnassignedMARLO [id number] ity of [facility] [id number] Chad as [id number] [address] 2020-01-01 2020-01-01 Ancillary Therapy, [facility] 1.2.840.114 [id number] 11:42:44 12:42:44 Visit [facility] [id number] Occup Clear [id number] [place] [id number] Medical [address] 2020-01-01 2020-01-01 Outpatient Carlitos VASQUEZ [facility] [id number] Univers 11:00:00 11:00:00 SERVANDO zavala of [facility] [place] [facility] 2020-01-01 2020-01-01 Orders Doctor FLORIN 1.2.840.114 [id number] 00:00:00 00:00:00 Only Unassigned, MARLO [id number] [place] [facility] [id number] [id number] 009 Results This patient has no known results.
[2022-02-18] MEDS ORDERED: dexAMETHasone 10 MG/ML VIAL ONE (04:08)
[2022-02-18] MEDS ORDERED: COLCHICINE 0.6 MG TAB ONE (04:08)
[2022-02-18] MEDS ORDERED: MORPHINE 2 MG/ML SYR ONE (04:08)
[2022-02-18] MEDS ORDERED: ONDANSETRON 4 MG/2 ML VIAL ONE (04:09)
[2022-02-18] MEDS ORDERED: NA CHLORIDE 0.9% 500 ML ONE (04:09)
[2022-02-18] MEDS ORDERED: KETOROLAC 30 MG/ML INJ ONE (04:09)
[2022-02-18 04:10] LABS: Absolute Lymphocytes (CBC) 1.5 K/uL (0.7-4.9); Hematocrit 42.4 % (36.0-45.0); Lymphocytes % 15.3 % (15.3-44.8); MPV 8.6 fL (7.6-11.3); RBC Red Blood Cell Count 4.51 M/uL (3.86-4.86)
[2022-02-18 04:24] LABS: Albumin 4.2 g/dL (3.4-5.0); Bilirubin Total 0.5 mg/dL (0.2-1.0); Protein, Total 8.1 g/dL (6.4-8.2); Uric Acid 2.6 mg/dL (2.6-6.0)
--- NOTE | 2022-02-18 05:26 | EDPHYS ---
Physician Documentation [facility] Name: Dionne Lindo Age: 81 yrs Sex: Female : 1940 Arrival Date: 02/18/2022 Time: 02:32 Bed 16 Private MD: ED Physician Delmar Bonilla HPI: 02/18 05:12 This 81 yrs old Female presents to ER via Ambulatory with complaints of Hand dragan Pain - Right. 05:12 The patient or guardian reports decreased range of motion, pain, swelling, tenderness. dragan The complaints affect the dorsal aspect of right wrist and palmar aspect of right wrist. Context: The problem was sustained at home. Onset: The symptoms/episode began/occurred 2 day(s) ago. Modifying factors: The symptoms are alleviated by nothing, holding still, the symptoms are aggravated by movement, dependent position. Associated signs and symptoms: Pertinent positives: nausea. Associated signs and symptoms:. Severity of symptoms: At their worst the symptoms were moderate, in the emergency department the symptoms are unchanged. The patient has experienced similar episodes in the past, multiple times. Historical: - Allergies: 02:42 PENICILLINS; tw5 - PMHx: 02:42 Hypertension; Hypokalemia; Sleep Apnea; Vertigo; tw5 - Immunization history:: Flu vaccine is not up to date. Patient has never been vaccinated. - Social history:: Smoking status: Patient denies any tobacco usage or history of. - Family history:: not pertinent. ROS: 05:12 Constitutional: Negative for fever, chills, and weight loss, Eyes: Negative for injury, dragan pain, redness, and discharge, ENT: Negative for injury, pain, and discharge, Neck: Negative for injury, pain, and swelling, Cardiovascular: Negative for chest pain, palpitations, and edema, Respiratory: Negative for shortness of breath, cough, wheezing, and pleuritic chest pain, Abdomen/GI: Negative for abdominal pain, nausea, vomiting, diarrhea, and constipation, Back: Negative for injury and pain, : Negative for injury, bleeding, discharge, and swelling, Skin: Negative for injury, rash, and discoloration, Neuro: Negative for headache, weakness, numbness, tingling, and seizure, Psych: Negative for depression, anxiety, suicide ideation, homicidal ideation, and hallucinations, Allergy/Immunology: Negative for hives, rash, and allergies, Endocrine: Negative for neck swelling, polydipsia, polyuria, polyphagia, and marked weight changes. 05:12 MS/extremity: Positive for decreased range of motion, pain, swelling, tenderness, RIGHT WRIST. Exam: 05:12 Constitutional: This is a well developed, well nourished patient who is awake, alert, dragan and in no acute distress. Head/Face: Normocephalic, atraumatic. Eyes: Pupils equal round and reactive to light, extra-ocular motions intact. Lids and lashes normal. Conjunctiva and sclera are non-icteric and not injected. Cornea within normal limits. Periorbital areas with no swelling, redness, or edema. ENT: Nares patent. No nasal discharge, no septal abnormalities noted. Tympanic membranes are normal and external auditory canals are clear. Oropharynx with no redness, swelling, or masses, exudates, or evidence of obstruction, uvula midline. Mucous membranes moist. Neck: Trachea midline, no thyromegaly or masses palpated, and no cervical lymphadenopathy. Supple, full range of motion without nuchal rigidity, or vertebral point tenderness. No Meningismus. Chest/axilla: Normal chest wall appearance and motion. Nontender with no deformity. No lesions are appreciated. Cardiovascular: Regular rate and rhythm with a normal S1 and S2. No gallops, murmurs, or rubs. Normal PMI, no JVD. No pulse deficits. Respiratory: Lungs have equal breath sounds bilaterally, clear to auscultation and percussion. No rales, rhonchi or wheezes noted. No increased work of breathing, no retractions or nasal flaring. Back: No spinal tenderness. No costovertebral tenderness. Full range of motion. Female : Normal external genitalia. Skin: Warm, dry with normal turgor. Normal color with no rashes, no lesions, and no evidence of cellulitis. MS/ Extremity: Pulses equal, no cyanosis. Neurovascular intact. Full, normal range of motion. Neuro: Awake and alert, GCS 15, oriented to person, place, time, and situation. Cranial nerves II-XII grossly intact. Motor strength 5/5 in all extremities. Sensory grossly intact. Cerebellar exam normal. Normal gait. Psych: Awake, alert, with orientation to person, place and time. Behavior, mood, and affect are within normal limits. 05:12 Abdomen/GI: Soft, non-tender, with normal bowel sounds. No distension or tympany. No guarding or rebound. No evidence of tenderness throughout. 05:12 Abdomen/GI: Inspection: abdomen appears normal, Bowel sounds: active, Palpation: abdomen is soft and non-tender. 05:12 Musculoskeletal/extremity: Extremities: grossly normal except: decreased ROM, pain, ROM: limited active range of motion, limited passive range of motion, limited active range of motion due to pain, limited passive range of motion due to pain, in the dorsal aspect of right wrist and palmar aspect of right wrist, Circulation is intact in all extremities. Sensation intact. Compartment Syndrome exam of affected extremity: is normal. no numbness, no tingling, no sensation deficit, no palor, no weak pulses, Joints: All joints are normal except the right wrist displays pain at rest, painful range of motion, tenderness, DVT Exam: pain, swelling, tenderness, that is moderate. Vital Signs: 02:41 BP 166 / 90; Pulse 113; Resp 18; Temp 98.2; Pulse Ox 100% on R/A; Weight 78.02 kg; tw5 Height 5 ft. 0 in. (152.40 cm); Pain 10/10; 02:50 BP 146 / 62; Pulse 93; Resp 16; Pulse Ox 98% ; lb 04:52 BP 143 / 72; Pulse 84; Resp 15; Pulse Ox 98% ; Pain 6/10; tw5 05:26 BP 141 / 68; Pulse 86; Resp 18; Temp 97.9; Pulse Ox 98% ; Pain 4/10; mw 02:41 Body Mass Index 33.59 (78.02 kg, 152.40 cm) tw5 MDM: 02:33 Patient medically screened. [facility] 05:22 Differential diagnosis: contusion, tendonitis. Data reviewed: vital signs, nurses dragan notes, lab test result(s), CBC, electrolytes, radiologic studies, plain films. Data interpreted: pvc monitor: rate is 84 beats/min, rhythm is regular, Pulse oximetry: on room air is 98 %. Test interpretation: by ED physician or midlevel provider: plain radiologic studies. Counseling: I had a detailed discussion with the patient and/or guardian regarding: the historical points, exam findings, and any diagnostic results supporting the discharge/admit diagnosis, lab results, radiology results, the need for outpatient follow up, for definitive care, an magento developer, a orthopedic surgeon. 02/18 03:43 Order name: CBC with Diff; Complete Time: 05:12 [facility] 02/18 03:43 Order name: Comprehensive Metabolic Panel; Complete Time: 05:12 [facility] 02/18 03:43 Order name: Uric Acid; Complete Time: 05:12 [facility] 02/18 03:43 Order name: Wrist Right 3 View XRAY [facility] 02/18 05:12 Order name: Splint - Volar Wrist Splint: COCK UP , VELCRO; Complete Time: 05:42 [facility] Administered Medications: 04:16 Drug: Decadron - Dexamethasone 10 mg Route: IVP; Site: left antecubital; tw5 05:24 Follow up: Response: No adverse reaction mw 04:17 Drug: Ketorolac 30 mg Route: IVP; Site: left antecubital; tw5 05:24 Follow up: Response: No adverse reaction mw 04:17 Drug: Colcrys (colchicine) 1.2 mg Route: PO; tw5 05:24 Follow up: Response: No adverse reaction mw 04:17 Drug: morphine 2 mg Route: IVP; Site: left antecubital; tw5 05:24 Follow up: Response: Pain is decreased mw 04:17 Drug: Zofran (Ondansetron) 4 mg Route: IVP; Site: left antecubital; tw5 05:24 Follow up: Response: No adverse reaction mw 04:18 Drug: NS 0.9% 500 ml Route: IV; Rate: bolus; Site: left antecubital; tw5 05:20 Drug: Colcrys (colchicine) 0.6 mg Route: PO; mw Disposition Summary: 02/18/22 05:25 Discharge Ordered Location: Home dragan Problem: new dragan Symptoms: have improved dragan Condition: Stable dragan Diagnosis - Gout, unspecified dragan - Pain in right wrist dragan - Other specified arthritis - RIGHT WRIST dragan Followup: dragan - With: Private Physician - When: 2 - 3 days - Reason: Recheck today's complaints, Continuance of care, Re-evaluation by your physician Followup: dragan - With: Asa Edmonds MD - When: Today - Reason: Recheck today's complaints, Re-evaluation by your physician Discharge Instructions: - Discharge Summary Sheet dragan - Joint Pain dragan - Arthritis dragan - Gout dragan - Musculoskeletal Pain [facility] - How to Use Cold Therapy, Kkda-yn-Zwxy [facility] - Wrist Pain, Adult, Spct-go-Iwty [facility] - Low-Purine Eating Plan dragan - Gout, Okzt-pb-Azgz dragan - Arthritis, Eftl-sy-Hodu [facility] Forms: - Medication Reconciliation Form [facility] - Thank You Letter [facility] - Antibiotic Education [facility] - Prescription Opioid Use [facility] Prescriptions: - colchicine 0.6 mg Oral tablet - take 2 tablet by ORAL route 2 times per day; 8 tablet; Refills: 0, Product [facility] Selection Permitted - dexamethasone 2 mg Oral tablet - take 1 tablet by ORAL route 2 times per day; 10 tablet; Refills: 0, Product dragan Selection Permitted - diclofenac sodium 25 mg Oral tablet,delayed release (DR/EC) - take 2 tablet by ORAL route 2 times per day; 28 tablet; Refills: 0, Product [facility] Selection Permitted - Tylenol-Codeine #3 300 mg-30 mg Oral - take 2 tablet by ORAL route every 6 hours; 20 tablet; Refills: 0, Product dragan Selection Permitted Signatures: Dispatcher [employer] Letha Lange, Delmar Macias RN, MD MD cha Wood, Tiffany tw5
--- NOTE | 2022-02-18 05:26 | ER ---
Nurse's Notes [facility] Name: Dionne Lindo Age: 81 yrs Sex: Female : 1940 Arrival Date: 02/18/2022 Time: 02:32 Bed 16 Private MD: Diagnosis: Gout, unspecified;Pain in right wrist;Other specified arthritis-RIGHT WRIST Presentation: 02/18 02:41 Chief complaint: Patient states: "I think I have gout in my hand. It hurts really tw5 bad.". Coronavirus screen: Vaccine status: Patient reports receiving the 2nd dose of the covid vaccine. Moderna. Ebola Screen: Patient negative for fever greater than or equal to 101.5 degrees Fahrenheit, and additional compatible Ebola Virus Disease symptoms Patient denies exposure to infectious person. Patient denies travel to an Ebola-affected area in the 21 days before illness onset. Initial Sepsis Screen: Does the patient meet any 2 criteria? HR > 90 bpm. Does the patient have a suspected source of infection? No. Patient's initial sepsis screen is negative. Risk Assessment: Do you want to hurt yourself or someone else? Patient reports no desire to harm self or others. Onset of symptoms is unknown. 02:41 Method Of Arrival: Ambulatory tw5 02:41 Acuity: KARTHIK 3 tw5 Triage Assessment: 02:42 General: Appears in no apparent distress. uncomfortable, Behavior is calm, cooperative, tw5 appropriate for age. Pain: Complains of pain in right hand Pain currently is 9 out of 10 on a pain scale. Historical: - Allergies: 02:42 PENICILLINS; tw5 - PMHx: 02:42 Hypertension; Hypokalemia; Sleep Apnea; Vertigo; tw5 - Immunization history:: Flu vaccine is not up to date. Patient has never been vaccinated. - Social history:: Smoking status: Patient denies any tobacco usage or history of. - Family history:: not pertinent. Screenin:59 Abuse screen: Denies threats or abuse. Nutritional screening: No deficits noted. lb Tuberculosis screening: No symptoms or risk factors identified. Fall Risk None identified. Assessment: 02:52 General: Appears uncomfortable, Behavior is calm, cooperative, appropriate for age. lb Pain: Complains of pain in right hand Pain radiates to right elbow Quality of pain is described as aching, sharp, shooting, Pain began 2-3 days ago. Neuro: No deficits noted. Cardiovascular: Rhythm is sinus tachycardia. Respiratory: No deficits noted. Airway is patent Respiratory effort is even, unlabored, Respiratory pattern is regular, symmetrical. GI: No deficits noted. : No deficits noted. EENT: No deficits noted. Derm: No deficits noted. Musculoskeletal:. Vital Signs: 02:41 BP 166 / 90; Pulse 113; Resp 18; Temp 98.2; Pulse Ox 100% on R/A; Weight 78.02 kg; tw5 Height 5 ft. 0 in. (152.40 cm); Pain 10/10; 02:50 BP 146 / 62; Pulse 93; Resp 16; Pulse Ox 98% ; lb 04:52 BP 143 / 72; Pulse 84; Resp 15; Pulse Ox 98% ; Pain 6/10; tw5 05:26 BP 141 / 68; Pulse 86; Resp 18; Temp 97.9; Pulse Ox 98% ; Pain 4/10; mw 02:41 Body Mass Index 33.59 (78.02 kg, 152.40 cm) tw5 ED Course: 02:32 Patient arrived in ED. kz 02:33 Delmar Bonilla MD is Attending Physician. dragan 02:42 Triage completed. tw5 02:42 Arm band placed on left wrist. tw5 02:42 Patient placed in an exam room, on a stretcher, on cardiac specialist, on pulse oximetry. tw5 02:49 Laurita Paige, RN is Primary Nurse. lb 03:00 Bed in low position. Call light in reach. Side rails up X 1. Patient's son is at bedside. Client placed on continuous cardiac and pulse oximetry monitoring. NIBP monitoring applied. Noise minimized. Lights dimmed. Warm blanket given. 03:02 visiting with son at bedside. Awaiting ED provider evaluation. lb 03:30 Inserted saline lock: 20 gauge in left antecubital area, using aseptic technique. 04:00 CBC with Diff Sent. tw5 04:00 Comprehensive Metabolic Panel Sent. tw5 04:00 Uric Acid Sent. tw5 04:15 Wrist Right 3 View XRAY In Process Unspecified. EDMS 05:24 Asa Edmonds MD is Referral Physician. dragan 05:36 No provider procedures requiring assistance completed. mw 05:49 IV discontinued, intact. mw 05:50 IV discontinued, bleeding controlled, No redness/swelling at site. Pressure dressing mw applied. Administered Medications: 04:16 Drug: Decadron - Dexamethasone 10 mg Route: IVP; Site: left antecubital; tw5 05:24 Follow up: Response: No adverse reaction mw 04:17 Drug: Ketorolac 30 mg Route: IVP; Site: left antecubital; tw5 05:24 Follow up: Response: No adverse reaction mw 04:17 Drug: Colcrys (colchicine) 1.2 mg Route: PO; tw5 05:24 Follow up: Response: No adverse reaction mw 04:17 Drug: morphine 2 mg Route: IVP; Site: left antecubital; tw5 05:24 Follow up: Response: Pain is decreased mw 04:17 Drug: Zofran (Ondansetron) 4 mg Route: IVP; Site: left antecubital; tw5 05:24 Follow up: Response: No adverse reaction mw 04:18 Drug: NS 0.9% 500 ml Route: IV; Rate: bolus; Site: left antecubital; tw5 05:20 Drug: Colcrys (colchicine) 0.6 mg Route: PO; mw Outcome: 05:25 Discharge ordered by MD. archibald 05:49 Discharged to home ambulatory, with family. mw 05:49 Condition: improved 05:49 Discharge instructions given to patient, family. 05:56 Patient left the ED. mw Signatures: Dispatcher [employer] EDMS Letha Hope RN RN mw Anderson, Corey, MD MD cha Bonnot, Lauren, RN RN lb Wood, Tiffany tw5 Korin Hairston
[2022-02-18 06:08] VITALS: O2SAT 98
[2022-02-18 06:10] VITALS: BP 141/68; TEMP 97.9
--- NOTE | 2022-02-19 13:22 | RAD REPORT ---
EXAM DESCRIPTION: RAD - Wrist Right 3 View - 02/18/2022 4:14 am CLINICAL HISTORY: The patient is 81 years old and is Female; PAIN TECHNIQUE: Three views of the right wrist. COMPARISON: No relevant prior studies available. FINDINGS: Bones/joints: Moderate degenerative changes in the basal joint. 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 No acute fracture. No dislocation. Soft tissues: Unremarkable. No radiopaque foreign body. Vasculature: Atherosclerotic calcification. IMPRESSION: 1. Moderate degenerative changes in the basal joint. 2. 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 Electronically signed by: Neeta Steele MD 02/18/2022 5:09 AM CDT Due to temporary technical issues with the PACS/Fluency reporting system, reports are being signed by the in house radiologist without review as a courtesy to ensure prompt reporting. The interpreting r adiologist is fully responsible for the content of the report.
== END 2022-02-18 05:56 | disposition home or self-care (01) ==
LOC: ER 02:29
DX: M13.831 Other specified arthritis, right wrist (principal); M10.9 Gout, unspecified; Z88.0 Allergy status to penicillin
CPT/HCPCS: 85025; 36415; 84550; 80053; 73110; 96375; 96374; 99284; J1100; J2270; J7040; J2405

== ENCOUNTER 2023-02-14 11:47 | Emergency (ER) | payer OTHER ==
--- OUTSIDE RECORDS SUMMARY | 2023-02-14 11:49 | XMS REPORT | Continuity of Care Document ---
:1940 Author Organization [facility] t Address [address] [place] [address]. [address] [place] [address] Care Team Providers Name Role Phone MonicaTony Primary Care Physician Pob, Adc Lab Main Attending Clinician Unavailable Sonali Amanda MD Attending Clinician SONALI AMANDA Attending Clinician Unavailable Doctor Unassigned, [place] Attending Clinician Unavailable Therapy, Clc Bls Occup Attending Clinician Unavailable SERVANDO VASQUEZ Attending Clinician Unavailable Payers Payer Name Policy Policy Number Effective Expiration Source Type Date Date MEDICAREMEDICARE [id number] 2007 Univers ity of PART A & 00:00:00 [facility] [id number]/ [facility] [id number] [id number] [place] [address]Medicare AETNAAETNA [id number] 2013 [facility] OUT OF 00:00:00 [facility] edical [id number] [facility] /2013-HM Problems Condition Condition Condition Status Onset Resolution Last Treating Co mments Source Name Details Category Date Date Treatment Clinician Date Limitation Limitation Disease Active U nivers of joint of joint 4- [place] motion [place] 00 [place] Edema of Edema of Disease Active Unive rs hand hand 4- ity of 00:00: [place] 00 Medical [place] Decreased Decreased Disease Active Uni vers independen independen 4- it y of ce with ce with 00:00: [place] activities activities 00 Me dical of daily of daily [place] living living Allergies, Adverse Reactions, Alerts Allergy Allergy Status Severity Reaction(s) Onset Inactive Treating Comm ents Source Name Type Date Date Clinician NO KNOWN Drug Active Univers ALLERGIE Class ity of [facility] Social History Social Habit Start Date Stop Date Quantity Comments Source Sex Assigned At [birth year] [facility] 00:00:00 00:00:00 [facility] Smoking Status Start Date Stop Date Source Unknown if ever smoked [facility] Medications This patient has no known medications. Procedures Procedure Date / Time Performed Performing Clinician [facility] ASSIGNMENT OF BENEFITS 2021-05-24 19:34:59 Doctor Unassigned, No [facility] PHYSICIAN ORDERS 2021-05-16 05:01:00 Doctor Unassigned, No [facility] Encounters Start End Encounter Admission Attending Care Care Encounter Source Date/Time Date/Time Type Type Clinicians Facility Department ID 2021-05-24 2021-05-24 Senior Product Development Engineer Aleshia Grimm Lab Main [facility] 1.2.8 [id number] Univers 14:39:31 14:54:31 Visit Sonali Amanda 350.1.13.1 0 ity [facility] [id number] [place] [phone] Me dical nal [address] 2021-05-24 2021-05-24 Outpatient R VASILIY [facility] [id number] Univers 13:45:00 13:45:00 [facility] 2021-05-24 2021-05-24 Orders Doctor CATHERINE 1.2.840.114 [id number] Univers 00:00:00 00:00:00 Only Unassigned, MARLO 350.1.13.10 ity of [place] [facility] [id number] Chad as [phone] [address] 2021-05-16 2021-05-16 Orders Doctor CATHERINE 1.2.840.114 [id number] Univers 00:00:00 00:00:00 Only Unassigned, MARLO [id number] ity of [place] [facility] [id number] Chad as [phone] [facility] 009 Branch 2020-01-01 2020-01-01 Ancillary Therapy, [facility] 1.2.840.114 [id number] 11:42:44 12:42:44 Visit [facility] [id number] Occup Clear [id number] [place] [id number] Medical [address] 2020-01-01 2020-01-01 Outpatient Carlitos VASQUEZ [facility] [id number] [facility] 11:00:00 11:00:00 SERVANDO zavala of [facility] 2020-01-01 2020-01-01 Orders Doctor FLORIN 1.2.840.114 [id number] 00:00:00 00:00:00 Only Unassigned, MARLO 350.1.13.10 [place] [facility] [id number] [id number] 009 Results This patient has no known results.
[2023-02-14] MEDS ORDERED: ONDANSETRON 4 MG (ODT) TAB ONE (12:04)
[2023-02-14] MEDS ORDERED: NA CHLORIDE 0.9% 1,000 ML ONE (12:36)
[2023-02-14] MEDS ORDERED: ONDANSETRON 4 MG/2 ML VIAL ONE (12:36)
[2023-02-14] MEDS ORDERED: NA CHLORIDE 0.9% 500 ML ONE (12:36)
[2023-02-14] MEDS ORDERED: FAMOTIDINE 20 MG/2 ML VIAL IV ONE (12:36)
[2023-02-14 12:56] LABS: Absolute Lymphocytes (CBC) 1.7 K/uL (0.7-4.9); Hematocrit 42.8 % (36.0-45.0); Lymphocytes % 16.1 % (15.3-44.8); MCV 96.7 fL (80-100); MPV 8.3 fL (7.6-11.3); RBC Red Blood Cell Count 4.42 M/uL (3.86-4.86)
[2023-02-14 13:00] LABS: Protime INR 0.98
[2023-02-14 13:13] LABS: Urine Bacteria 20-50 /HPF (<20); Urine Bilirubin NEGATIVE (Negative); Urine Blood Negative (Negative); Urine Clarity Clear (Clear); Urine Color Light-Yellow (Yellow); Urine Glucose NEGATIVE (Negative); Urine Mucus Slight /HPF (None Seen); Urine Protein NEGATIVE (Negative); Urine RBC <5 /HPF (None Seen); Urine Urobilinogen Normal (Normal); Urine WBC Clump Rare /HPF (None Seen)
[2023-02-14 13:17] LABS: Albumin 4.2 g/dL (3.4-5.0); Bilirubin Direct 0.2 mg/dL (0-0.2); Bilirubin Indirect, Calculated 0.2 mg/dL (0.2-0.8); Bilirubin Total 0.4 mg/dL (0.2-1.0); Magnesium 1.8 mg/dL (1.6-2.4); Potassium 3.8 mEq/L (3.5-5.1); Protein, Total 7.9 g/dL (6.4-8.2); Troponin High Sensitivity 4.2 pg/mL (<58.9)
--- NOTE | 2023-02-14 13:47 | RAD REPORT ---
EXAM DESCRIPTION: Juan A Single View02/14/2023 12:57 pm CLINICAL HISTORY: ABDOMINAL DISTENTION COMPARISON: Chest Single View dated 12/27/2019; Chest Single View dated 07/11/2019; Chest Single View dated 10/26/2017; Chest Single View dated 06/09/2020 TECHNIQUE: Portable AP view of the chest. FINDINGS: The lungs are clear. No pneumothorax or effusion. Stable mild cardiomegaly. Mediastinal co ntours are unremarkable. IMPRESSION: No acute pulmonary process. Stable mild cardiomegaly.
--- NOTE | 2023-02-14 14:19 | RAD REPORT ---
EXAM DESCRIPTION: CT - Angio Aorta For Dissection - 02/14/2023 1:46 pm CLINICAL HISTORY: Abdominal distention;Pain COMPARISON: Abdomen Pelvis W Contrast dated 02/26/2021 TECHNIQUE: Dynamically enhanced 3 mm thick images of the chest, abdomen, and upper pelvis were obtai young during administration of approximately 100mL Isovue 370 IV contrast. Sagittal and coronal reconst ructions as well as maximal intensity projection reconstruction were generated and reviewed per an [facility] angiography protocol. All CT scans are performed using dose optimization technique as appropriate and may include automated exposure control or mA/KV adjustment according to patient size. FINDINGS: Aorta is normal in diameter with no dissection or other acute aortic findings. Reconstruct ion images show no significant findings. Pulmonary arteries are normal as well. No mass or infiltrate in the lung parenchyma. No pleural thickening, pleural effusion or pneumothorax . No abnormal mediastinal or hilar mass or lymphadenopathy seen. No chest wall mass or abnormal axillar y lymphadenopathy. Celiac, SMA and renal arteries show no suspicious findings. 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 Status post cholecystectomy. Solid abdominal viscera and jose l show no significant findings. No mass or abnormal lymphadenopathy. Superior endplate compression deformity at T12 with 50% loss of height, favored to be chronic, but ul timately of indeterminate age. No other suspicious osseous findings. Sclerotic changes along the left more than right SI joint are stable. Mixed lytic and sclerotic well-circumscribed sacral lesion emilie g right aspect of S2, stable, may represent a small enchondroma. IMPRESSION: No acute abnormalities on CT angiogram of the aorta. Superior endplate compression deformity at T12, a new finding since 2020. Ultimately, this is of inde terminate age. Other incidental findings as above.
--- NOTE | 2023-02-14 14:20 | RAD REPORT ---
EXAM DESCRIPTION: CT - Head Brain Wo Cont - 02/14/2023 1:43 pm CLINICAL HISTORY: DIZZINESS COMPARISON: Head Brain Wo Cont dated 06/09/2020; Head Brain Wo Cont dated 12/27/2019 TECHNIQUE: Noncontrast head CT images ad were obtained without IV contrast. Multiplanar reformats we re generated and reviewed. All CT scans are performed using dose optimization technique as appropriate and may include automated exposure control or mA/KV adjustment according to patient size. FINDINGS: No intracranial hemorrhage, mass, or edema. Midline structures are unremarkable. Normal ventricular caliber for age. Claire-white matter differentiation is preserved, without evidence of acute infarct. No abnormal extra- axial fluid collections. Mastoid air cells and visualized portions of the paranasal sinuses are clear. No acute bony findings. IMPRESSION: No evidence of an acute intracranial process.
--- NOTE | 2023-02-14 14:53 | EDPHYS ---
Physician Documentation [facility] Name: Dionne Lindo Age: 82 yrs Sex: Female : 1940 Arrival Date: 02/14/2023 Time: 11:47 Bed 14 Private MD: Tony Anderson ED Physician Delmar Bonilla HPI: 02/14 14:46 This 82 yrs old Female presents to ER via Wheelchair with complaints of dragan Nausea/Vomiting. 14:46 The patient presents to the emergency department with nausea, vomiting, that is dragan intermittent. Onset: The symptoms/episode began/occurred this morning. Possible causes: unknown. The symptoms are aggravated by nothing. The symptoms are alleviated by nothing. Associated signs and symptoms: The patient has no apparent associated signs or symptoms. Severity of symptoms: At their worst the symptoms were mild moderate in the emergency department the symptoms are unchanged. The patient has not experienced similar symptoms in the past. Historical: - Allergies: 11:53 PENICILLINS; kc6 - PMHx: 11:53 Hypertension; Hypokalemia; Sleep Apnea; Vertigo; kc6 - PSHx: 11:53 Cholecystectomy; hysterectomy; kc6 - Immunization history:: Client reports receiving the 2nd dose of the Covid vaccine, Flu vaccine is not up to date. - Social history:: Smoking status: Patient denies any tobacco usage or history of. ROS: 14:46 Constitutional: Negative for fever, chills, and weight loss, Eyes: Negative for injury, dragan pain, redness, and discharge, ENT: Negative for injury, pain, and discharge, Neck: Negative for injury, pain, and swelling, Cardiovascular: Negative for chest pain, palpitations, and edema, Respiratory: Negative for shortness of breath, cough, wheezing, and pleuritic chest pain, Back: Negative for injury and pain, : Negative for injury, bleeding, discharge, and swelling, MS/Extremity: Negative for injury and deformity, Skin: Negative for injury, rash, and discoloration, Neuro: Negative for headache, weakness, numbness, tingling, and seizure, Psych: Negative for depression, anxiety, suicide ideation, homicidal ideation, and hallucinations, Allergy/Immunology: Negative for hives, rash, and allergies, Endocrine: Negative for neck swelling, polydipsia, polyuria, polyphagia, and marked weight changes, Hematologic/Lymphatic: Negative for swollen nodes, abnormal bleeding, and unusual bruising. 14:46 Abdomen/GI: Positive for nausea and vomiting. Exam: 14:46 Constitutional: This is a well developed, well nourished patient who is awake, alert, dragan and in no acute distress. Head/Face: Normocephalic, atraumatic. Eyes: Pupils equal round and reactive to light, extra-ocular motions intact. Lids and lashes normal. Conjunctiva and sclera are non-icteric and not injected. Cornea within normal limits. Periorbital areas with no swelling, redness, or edema. ENT: Nares patent. No nasal discharge, no septal abnormalities noted. Tympanic membranes are normal and external auditory canals are clear. Oropharynx with no redness, swelling, or masses, exudates, or evidence of obstruction, uvula midline. Mucous membranes moist. Neck: Trachea midline, no thyromegaly or masses palpated, and no cervical lymphadenopathy. Supple, full range of motion without nuchal rigidity, or vertebral point tenderness. No Meningismus. Chest/axilla: Normal chest wall appearance and motion. Nontender with no deformity. No lesions are appreciated. Cardiovascular: Regular rate and rhythm with a normal S1 and S2. No gallops, murmurs, or rubs. Normal PMI, no JVD. No pulse deficits. Respiratory: Lungs have equal breath sounds bilaterally, clear to auscultation and percussion. No rales, rhonchi or wheezes noted. No increased work of breathing, no retractions or nasal flaring. Abdomen/GI: Soft, non-tender, with normal bowel sounds. No distension or tympany. No guarding or rebound. No evidence of tenderness throughout. Back: No spinal tenderness. No costovertebral tenderness. Full range of motion. Female : Normal external genitalia. Skin: Warm, dry with normal turgor. Normal color with no rashes, no lesions, and no evidence of cellulitis. MS/ Extremity: Pulses equal, no cyanosis. Neurovascular intact. Full, normal range of motion. Neuro: Awake and alert, GCS 15, oriented to person, place, time, and situation. Cranial nerves II-XII grossly intact. Motor strength 5/5 in all extremities. Sensory grossly intact. Cerebellar exam normal. Normal gait. Psych: Awake, alert, with orientation to person, place and time. Behavior, mood, and affect are within normal limits. 14:46 ECG was reviewed by the Attending Physician. Vital Signs: 11:51 BP 152 / 63; Pulse 95; Resp 19; Temp 98.1; Pulse Ox 98% on R/A; Weight 79.83 kg; Height kc6 5 ft. 0 in. ; Pain 8/10; 12:00 BP 148 / 70; Pulse 88; Resp 16; Pulse Ox 99% ; ko1 13:00 BP 158 / 72; Pulse 98; Resp 18; Pulse Ox 97% on R/A; ko1 14:00 BP 142 / 60; Pulse 82; Resp 16; Pulse Ox 99% ; ko1 15:00 BP 140 / 70; Pulse 85; Resp 16; Pulse Ox 99% ; ko1 11:51 Body Mass Index 34.37 (79.83 kg, 152.4 cm) 6 11:51 Pain Scale: Adult kc6 MDM: 11:52 Patient medically screened. [facility] 14:48 Differential diagnosis: Nonspecific abd pain, gastritis, viral gastroenteritis, dragan gastroenteritis, arthritis. Data reviewed: vital signs, nurses notes, lab test result(s), EKG, radiologic studies, CT scan, plain films. Consideration of Admission/Observation Escalation of care including admission/observation considered. I considered the following discharge prescriptions or medication management in the emergency department Medications were administered in the Emergency Department. See MAR. Test considered but Not performed: Ultrasound NO ABD US. Care significantly affected by the following chronic conditions: Hypertension, Obesity. Counseling: I had a detailed discussion with the patient and/or guardian regarding: the historical points, exam findings, and any diagnostic results supporting the discharge/admit diagnosis, lab results, radiology results, the need for outpatient follow up, for definitive care, a family practitioner. 02/14 11:59 Order name: Basic Metabolic Panel; Complete Time: 13:25 dragan 02/14 11:59 Order name: CBC with Diff; Complete Time: 13:25 02/14 11:59 Order name: LFT's; Complete Time: 13:25 02/14 11:59 Order name: Magnesium; Complete Time: 13:25 02/14 11:59 Order name: NT PRO-BNP; Complete Time: 13:25 02/14 11:59 Order name: PT-INR; Complete Time: 13:25 02/14 11:59 Order name: Troponin HS; Complete Time: 13:25 [facility] 02/14 11:59 Order name: Lipase; Complete Time: 13:25 [facility] 02/14 11:59 Order name: Urinalysis w/ reflexes; Complete Time: 13:25 [facility] 02/14 14:46 Order name: Troponin High Sensitivity: 3PM REPEAT, IF NEG DC [facility] 02/14 11:59 Order name: XRAY Chest (1 view); Complete Time: 14:27 [facility] 02/14 13:39 Order name: CT Head Brain wo Cont; Complete Time: 14: [facility] 02/14 13:43 Order name: Angio Aorta For Dissection; Complete Time: 14:27 EDMS 02/14 11:59 Order name: EKG; Complete Time: 12:00 [facility] 02/14 11:59 Order name: Cardiac monitoring; Complete Time: 12:52 [facility] 02/14 11:59 Order name: EKG - Nurse/Tech; Complete Time: 13:14 [facility] 02/14 11:59 Order name: IV Saline Lock; Complete Time: 12:52 [facility] 02/14 11:59 Order name: Labs collected and sent; Complete Time: 12:52 [facility] 02/14 11:59 Order name: O2 Per Protocol; Complete Time: 12:52 [facility] 02/14 11:59 Order name: O2 Sat Monitoring; Complete Time: 12:52 [facility] EC:46 Rate is 89 beats/min. Rhythm is regular. QRS [place] is Normal. [place] interval is normal. QRS dragan interval is normal. QT interval is normal. No Q waves. T waves are Normal. Clinical impression: NSR w/ Non-specific ST/T Changes and No evidence of ischemia. Interpreted by me. Reviewed by me. Administered Medications: 11:59 Drug: Ondansetron PO 4 mg Route: PO; vg1 12:51 Drug: NS 0.9% IV 500 ml Route: IV; Rate: bolus; Site: right antecubital; ko1 13:13 Follow up: IV Status: Completed infusion; IV Intake: 500ml ko1 12:52 Drug: Ondansetron IVP 4 mg Route: IVP; Site: right antecubital; ko1 13:14 Follow up: Response: No adverse reaction; Nausea is decreased ko1 12:56 Drug: Famotidine IVP 20 mg Route: IVP; Site: right antecubital; ko1 13:13 Follow up: Response: No adverse reaction; Nausea is decreased ko1 13:13 Drug: NS 0.9% IV 1000 ml Route: IV; Rate: 125 ml/hr; Site: right antecubital; ko1 15:06 Drug: Rocephin IV 1 grams Route: IV; Rate: per protocol; Site: right antecubital; ko1 16:17 Follow up: Response: No adverse reaction ko1 Disposition Summary: 02/14/23 14:52 Discharge Ordered Location: Home [facility] Problem: new dragan Symptoms: have improved dragan Condition: Stable dragan Diagnosis - UTI/ Urinary tract infection, site not specified dragan - Vomiting dragan - Nausea dragan - Other chronic pain - BACK dragan Followup: dragan - With: Tony Anderson MD - When: 2 - 3 days - Reason: Recheck today's complaints, Continuance of care, Re-evaluation by your physician Discharge Instructions: - Discharge Summary Sheet dragan - Nausea and Vomiting, Adult dragan - Nausea, Adult dragan - Urinary Tract Infection, Adult dragan - Nausea and Vomiting, Adult, [id number] dragan - Urinary Tract Infection, Adult, [id number] dragan - Nausea, Adult, [id number] [facility] Forms: - Medication Reconciliation Form [facility] - Thank You Letter [facility] - Antibiotic Education [facility] - Prescription Opioid Use [facility] Prescriptions: - Cipro 250 mg Oral Tablet - take 1 tablet by ORAL route every 12 hours; 14 tablet; Refills: 0, Product [facility] Selection Permitted - Pepcid 20 mg Oral Tablet - take 1 tablet by ORAL route every 12 hours for 10 days; 30 tablet; Refills: 0, [facility] Product Selection Permitted - Zofran 4 mg Oral Tablet - take 1 tablet by ORAL route every 8 hours As needed; 30 tablet; Refills: 0, [facility] Product Selection Permitted Signatures: Dispatcher [employer] EDMS Delmar Bonilla MD MD cha Garcia, Victoria RN RN vg1 Margot Stewart RN RN ll1 Joanna Andino RN RN kc6 Karine Alves, ANMOL RN ko1 Corrections: (The following items were deleted from the chart) 13:43 13:26 Chest Abdomen Pelvis Wo Con+CT.RAD.BRZ ordered. EDMS EDMS 13:44 13:39 Angio Aorta For Dissection+CT.RAD.BRZ ordered. EDMS EDMS
--- NOTE | 2023-02-14 14:53 | ER ---
Nurse's Notes [facility] Name: Dionne Lindo Age: 82 yrs Sex: Female : 1940 Arrival Date: 02/14/2023 Time: 11:47 Bed 14 Private MD: Tony Anderson Diagnosis: UTI/ Urinary tract infection, site not specified;Vomiting;Nausea;Other chronic pain-BACK Presentation: 02/14 11:51 Chief complaint: Patient states: n/v with dizziness that started this morning upon kc6 awakening, reports right shoulder pain 05/09. pt actively dry heaving in triage. Coronavirus screen: At this time, the client does not indicate any symptoms associated with coronavirus-19. Ebola Screen: No symptoms or risks identified at this time. Initial Sepsis Screen: Does the patient meet any 2 criteria? No. Patient's initial sepsis screen is negative. Does the patient have a suspected source of infection? No. Patient's initial sepsis screen is negative. Risk Assessment: Do you want to hurt yourself or someone else? Patient reports no desire to harm self or others. Onset of symptoms was February 14, 2023. 11:51 Method Of Arrival: Wheelchair kc6 11:51 Acuity: KARTHIK 3 kc6 Triage Assessment: 11:53 General: Appears in no apparent distress. uncomfortable, ill, Behavior is calm, kc6 cooperative, appropriate for age. Pain: Complains of pain in right shoulder. Respiratory: Airway is patent Trachea midline Respiratory effort is even, unlabored, Respiratory pattern is regular, symmetrical. GI: Pt is actively vomiting bile, Reports nausea, vomiting, Patient currently denies diarrhea. Historical: - Allergies: 11:53 PENICILLINS; kc6 - PMHx: 11:53 Hypertension; Hypokalemia; Sleep Apnea; Vertigo; kc6 - PSHx: 11:53 Cholecystectomy; hysterectomy; kc6 - Immunization history:: Client reports receiving the 2nd dose of the Covid vaccine, Flu vaccine is not up to date. - Social history:: Smoking status: Patient denies any tobacco usage or history of. Screenin:45 [facility] ED Fall Risk Assessment (Adult) History of falling in the last 3 months, ko1 including since admission No falls in past 3 months (0 pts) Confusion or Disorientation No (0 pts) Intoxicated or Sedated No (0 pts) Impaired Gait No (0 pts) Mobility Assist Device Used No (0 pt) Altered Elimination No (0 pt) Score/Fall Risk Level 0 - 2 = Low Risk Oriented to surroundings, Maintained a safe environment, Educated pt \T\ family on fall prevention, incl call for assistance when getting out of bed, Assessed \T\ reinforced patient's understanding of fall precautions, Provided non-skid footwear, Hourly rounding (assess needs \T\ fall precautionary measures) done, Used ambulatory aids as needed (educated on \T\ assisted with), Used gait belt as appropriate. Abuse screen: Denies threats or abuse. Denies injuries from another. Nutritional screening: No deficits noted. Tuberculosis screening: No symptoms or risk factors identified. Assessment: 11:59 Reassessment: pt given 4 mg of Zofran in triage room; pt placed back in lobby. vg1 12:45 General:. General: Appears distressed, uncomfortable. Pain: Denies pain. Neuro: No ko1 deficits noted. Cardiovascular: No deficits noted. Respiratory: No deficits noted. GI: Pt is actively vomiting clear fluid. : No deficits noted. EENT: No deficits noted. Derm: No deficits noted. Musculoskeletal: No deficits noted. Vital Signs: 11:51 BP 152 / 63; Pulse 95; Resp 19; Temp 98.1; Pulse Ox 98% on R/A; Weight 79.83 kg; Height kc6 5 ft. 0 in. ; Pain 8/10; 12:00 BP 148 / 70; Pulse 88; Resp 16; Pulse Ox 99% ; ko1 13:00 BP 158 / 72; Pulse 98; Resp 18; Pulse Ox 97% on R/A; ko1 14:00 BP 142 / 60; Pulse 82; Resp 16; Pulse Ox 99% ; ko1 15:00 BP 140 / 70; Pulse 85; Resp 16; Pulse Ox 99% ; ko1 11:51 Body Mass Index 34.37 (79.83 kg, 152.4 cm) kc6 11:51 Pain Scale: Adult [facility] ED Course: 11:48 Patient arrived in ED. am2 11:48 Tony Anderson MD is Private Physician. am2 11:52 Delmar Bonilla MD is Attending Physician. [facility] 11:53 Triage completed. kc6 11:53 Arm band placed on. kc6 12:25 Karine Alves, RN is Primary Nurse. ko1 12:45 Patient has correct armband on for positive identification. Bed in low position. Call ko1 light in reach. Side rails up X 1. Client placed on continuous cardiac and pulse oximetry monitoring. NIBP monitoring applied. youth nutritional monitor on. Door closed. Noise minimized. Lights dimmed. Warm blanket given. 12:45 No provider procedures requiring assistance completed. ko1 12:50 Inserted saline lock: 20 gauge in right antecubital area, using aseptic technique. ko1 Blood collected. 12:52 Basic Metabolic Panel Sent. ko1 12:52 CBC with Diff Sent. ko1 12:52 LFT's Sent. ko1 12:52 Magnesium Sent. ko1 12:52 NT PRO-BNP Sent. ko1 12:52 PT-INR Sent. ko1 12:52 Troponin HS Sent. ko1 12:56 Urinalysis w/ reflexes Sent. ko1 12:56 Lipase Sent. ko1 12:59 XRAY Chest (1 view) In Process Unspecified. EDMS 13:45 CT Head Brain wo Cont In Process Unspecified. EDMS 13:47 Angio Aorta For Dissection In Process Unspecified. EDMS 14:51 Tony Anderson MD is Referral Physician. dragan 16:00 IV discontinued, intact, bleeding controlled, No redness/swelling at site. Pressure ko1 dressing applied. Administered Medications: 11:59 Drug: Ondansetron PO 4 mg Route: PO; vg1 12:51 Drug: NS 0.9% IV 500 ml Route: IV; Rate: bolus; Site: right antecubital; ko1 13:13 Follow up: IV Status: Completed infusion; IV Intake: 500ml ko1 12:52 Drug: Ondansetron IVP 4 mg Route: IVP; Site: right antecubital; ko1 13:14 Follow up: Response: No adverse reaction; Nausea is decreased ko1 12:56 Drug: Famotidine IVP 20 mg Route: IVP; Site: right antecubital; ko1 13:13 Follow up: Response: No adverse reaction; Nausea is decreased ko1 13:13 Drug: NS 0.9% IV 1000 ml Route: IV; Rate: 125 ml/hr; Site: right antecubital; ko1 15:06 Drug: Rocephin IV 1 grams Route: IV; Rate: per protocol; Site: right antecubital; ko1 16:17 Follow up: Response: No adverse reaction ko1 Medication: 15:24 VIS not applicable for this client. ko1 Intake: 13:13 IV: 500ml; Total: 500ml. ko1 Outcome: 14:52 Discharge ordered by . dragan 16:00 Discharged to home via wheelchair, with family. ko1 16:00 Condition: improved 16:00 Discharge instructions given to patient, Instructed on discharge instructions, follow up and referral plans. medication usage, Demonstrated understanding of instructions, follow-up care, medications, Prescriptions given X 3. 16:17 Patient left the ED. ko1 Signatures: Dispatcher [employer] EDMS Delmar Bonilla MD MD cha Moreno, Amanda am2 Garcia, Victoria RN RN vg1 Joanna Andino RN RN kc6 Karine Alves RN RN ko1 Corrections: (The following items were deleted from the chart) 11:57 11:51 Chief complaint: Patient states: n/v with dizziness that started this morning kc6 upon awakening, reports right shoulder pain 05/09 kc6
[2023-02-14] MEDS ORDERED: CEFTRIAXONE 1000 MG/VIAL ONE (15:10)
[2023-02-14 16:26] VITALS: TEMP 98.1
[2023-02-14 16:43] VITALS: O2SAT 99
[2023-02-14 16:44] VITALS: BP 140/70
--- NOTE | 2023-02-15 13:27 | EKG ---
Test Date: 2023-02-14 Test Time: 13:08:51 Auto Locator: MADY MEASUREMENT RESULTS: Intervals: Rate: 89 NH: 144 QRSD: 78 QT: 302 QTc: 367 [place]: P: 58 NH: 144 QRS: 40 T: 20 INTERPRETIVE STATEMENTS: Sinus rhythm with occasional premature ventricular complexes Nonspecific T wave abnormality Abnormal ECG Compared to ECG 06/09/2020 10:01:33 T-wave abnormality now present Sinus tachycardia no longer present Electronically Signed On 02-15-23 13:26:01 CDT by Aleks Dutta
== END 2023-02-14 16:17 | disposition home or self-care (01) ==
LOC: ER 11:47
DX: N39.0 Urinary tract infection, site not specified (principal); G89.29 Other chronic pain; Z88.0 Allergy status to penicillin
CPT/HCPCS: 93005; 85025; 81001; 80048; 36415; 83735; 85610; 80076; 84484 ×2; 83690; 83880; 70450; 71275; 74175; 71045; 96375; 96374; 99285; Q9967; Q0162; J2405; J7040; J7030; J0696

== ENCOUNTER 2024-12-09 12:58 | Emergency (ER) | payer OTHER ==
--- OUTSIDE RECORDS SUMMARY | 2024-12-09 13:02 | XMS REPORT | Continuity of Care Document ---
Author Name Unknown Address [address] [facility] [address] [place] [address] [facility] Address [address] [place] [address] Care Team Providers Care Fisher Diving Name Role Phone Tony Anderson Primary Care Physician [phone] Pob, Adc Lab Main Attending Clinician UnavailSonali Ferris MD Attending Clinician [phone] SONALI AMANDA Attending Clinician Unavailab le Doctor Unassigned, [place] Attending Clinician U navailable Therapy, Clc Bls Occup Attending Clinician Unava SERVANDO Rapp Attending Clinician Unavailable Payers Payer Name Policy Type Policy Number Effective Date Expiration Date Source MEDICAREMEDICARE PART A & [id number] [id number] [address] [place] [id number] [id number] 2007 00:00:00 [facility] AETNAAETNA COMMERCIAL OUT OF [id number] 2013 00:00:00 [facility] Problems Condition Name Condition Details Condition Category Status Onset Date Resolution Date Last Treatment Date Treating Clinician Comments Source Limitation of joint motion of left hand Limitation of joint motion of left hand Disease Active 12-31 00:00: 00 [facility] Edema of hand Edema of hand Disease Active 12-31 00:00: 00 [facility] Decreased independen ce with activities of daily living Decreased independen ce with activities of daily living Disease Active 4-03 00:00: 00 [facility] Allergies, Adverse Reactions, Alerts Allergy Name Allergy Type Status Severity Reaction(s) Onset Date Inactive Date Treating Clinician Comments Source NO KNOWN ALLERGIE S Drug Class Active [facility] Social History Social Habit Start Date Stop Date Quantity Comments Source Sex Assigned At 1940 00:00:00 1940 00:00:00 [facility] Smoking Status Start Date Stop Date Source Unknown if ever smoked Unive [facility] Procedures Procedure Date / Time Performed Performing Clinicia n Source ASSIGNMENT OF BENEFITS 2021-05-24 19:34:59 Docto r Unassigned, [place] [facility] PHYSICIAN ORDERS 2021-05-16 05:01:00 Doctor Unas signed, [place] [facility] Encounters Start Date/Time End Date/Time Encounter Type Admission Type Attending Clinicians Care Facility Care Department Encounter ID Source 2021-05-24 14:39:31 2021-05-24 14:54:31 Trimmer And Reinforcer Visit Pob, Adc Lab Main Sonali Amanda [facility] [id number] [facility] 2021-05-24 13:45:00 2021-05-24 13:45:00 Outpatient R SONALI MAANDA [facility] [id number] [facility] 2021-05-24 00:00:00 2021-05-24 00:00:00 Orders Only Doctor Unassigned, [place] [facility] [id number] [facility] 2021-05-16 00:00:00 2021-05-16 00:00:00 Orders Only Doctor Unassigned, [place] [id number] [facility] 2020-01-01 11:42:44 2020-01-01 12:42:44 Ancillary Visit Therapy, Clc Bls Occup [facility] [id number] 2020-01-01 11:00:00 2020-01-01 11:00:00 Outpatient SERVANDO REYES [facility] [id number] [facility] 2020-01-01 00:00:00 2020-01-01 00:00:00 Orders Only Doctor Unassigned, [place] [facility] [id number]
[2024-12-09] MEDS ORDERED: hydrOXYzine HCL 25 MG TAB ONE (14:51)
[2024-12-09] MEDS ORDERED: NA CHLORIDE 0.9% 500 ML ONE (14:52)
[2024-12-09 14:59] LABS: Absolute Basophils 0.1 K/uL (0-0.5); Absolute Eosinophils 0.1 K/uL (0-0.5); Absolute Lymphocytes (CBC) 2.3 K/uL (0.7-4.9); Absolute Monocytes 0.7 K/uL (0.1-1.3); Absolute Neutrophil 5.7 K/uL (1.8-8.0); Basophils % 0.7 % (0-1.3); Eosinophils % 0.9 % (0-4.4); Hematocrit 42.2 % (36.0-45.0); Hemoglobin 14.7 g/dL (12.0-15.0); Lymphocytes % 25.7 % (15.3-44.8); MCH 32.8 pg (27.0-35.0); MCHC 34.8 g/dL (32.0-36.0); MCV 94.3 fL (80-100); Monocytes % 8.2 % (3.3-12.3); Neutrophils % 64.5 % (41.7-73.7); Platelets 276 thou/uL (152-406); RBC Red Blood Cell Count 4.48 M/uL (3.86-4.86); Red Cell Distribution Width 12.8 % (12.1-15.2)
--- NOTE | 2024-12-09 14:59 | RAD REPORT ---
EXAMINATION: ONE VIEW CHEST XR CLINICAL INDICATION: Female, 84 years old.,MALAISE TECHNIQUE: Frontal chest projection is submitted. Examination is limited by patient positioning and t echnique. COMPARISON: 02/14/2023 FINDINGS: The lungs are well inflated and clear. No pneumothorax or sizable effusion. The heart is normal in s ize. Mediastinal contours are unremarkable. IMPRESSION: No acute intrathoracic abnormalities.
[2024-12-09 15:03] LABS: PT Prothrombin Time 12.3 SECONDS (10-13.0); Protime INR 1.08
[2024-12-09 15:26] LABS: ALT/SGPT 17 U/L (13-56); Albumin 3.8 g/dL (3.4-5.0); Albumin/Globulin Ratio 0.8 (1.1-1.8); Alkaline Phosphatase 97 U/L (45-117); Anion Gap 10.1 mEq/L (5.0-15.0); BUN Blood Urea Nitrogen 11 mg/dL (7-18); Bicarbonate 24 mEq/L (21-32); Bilirubin Total 0.5 mg/dL (0.2-1.0); Globulin 4.5 g/dL (2.3-3.5); Glomerular Filtration Rate 63 ml/min (=/>90); Glucose Level 117 mg/dL (74-106); Lipase 37 U/L (13-75); Protein, Total 8.3 g/dL (6.4-8.2); Sodium Level 138 mEq/L (136-145); Troponin High Sensitivity 4.4 pg/mL (<58.9)
[2024-12-09 15:27] LABS: AST/SGOT 22 U/L (15-37); Bilirubin Direct < 0.2 mg/dL (0-0.2); Bilirubin Indirect, Calculated 0.3 mg/dL (0.2-0.8); Magnesium 1.8 mg/dL (1.6-2.4); Potassium 4.1 mEq/L (3.5-5.1)
[2024-12-09] MEDS ORDERED: MORPHINE 4 MG/ML SYR ONE (17:29)
[2024-12-09] MEDS ORDERED: ONDANSETRON 4 MG/2 ML VIAL ONE (17:33)
--- NOTE | 2024-12-09 17:57 | RAD REPORT ---
EXAMINATION: CT Abdomen Pelvis W Contrast CLINICAL INDICATION: Female, 84 years old. ABD PAIN TECHNIQUE: CT abdomen and pelvis was performed, after the administration of IV contrast, as per [facility]. Axial, sagittal and coronal reconstructions were obtained. One or more of the following dose reduction techniques were used: Automated exposure control, adjustment of the mA and k V according to patient size, and iterative reconstruction. Unless otherwise specified, incidental findings do not require dedicated imaging follow-up. COMPARISON: 02/26/2021 and 02/14/2023 FINDINGS: LOWER CHEST: The visualized lung bases are clear. LIVER: Normal in size and contour. No focal lesion. BILIARY SYSTEM: Status post cholecystectomy. SPLEEN: Normal size. No focal lesion. PANCREAS: No mass, ductal dilation, or vera-pancreatic fluid. ADRENALS: Normal; no mass. KIDNEYS: Normal size and contour. No hydronephrosis. URINARY BLADDER: Unremarkable. GASTROINTESTINAL TRACT: No evidence of free air, significant intra-abdominal free fluid, bowel obstru ction or abscess. APPENDIX: Normal appendix. LYMPH NODES: No lymphadenopathy. MUSCULOSKELETAL: Advanced wedge compression deformity at T12, stable since January 2023. ADDITIONAL FINDINGS: None. IMPRESSION: No acute or concerning abnormalities seen in the abdomen or pelvis. Stable T12 wedge compression deformity.
[2024-12-09 18:08] LABS: Specific Gravity > 1.030 (1.005-1.030); Urine Bilirubin NEGATIVE (Negative); Urine Blood Negative (Negative); Urine Clarity Clear (Clear); Urine Color Colorless (Yellow); Urine Glucose NEGATIVE (Negative); Urine Ketones NEGATIVE (Negative); Urine Microscopic Reflex YN NO UMIC; Urine Nitrite NEGATIVE (Negative); Urine Protein NEGATIVE (Negative); Urine Urobilinogen Normal (Normal); Urine pH 6.5 (5.0-7.0)
--- NOTE | 2024-12-09 18:11 | ER ---
Nurse's Notes [facility] Name: Dionne Lindo Age: 84 yrs Sex: Female : 1940 Arrival Date: 12/09/2024 Time: 12:58 Bed 6 Private MD: Diagnosis: Nausea;Weakness Presentation: 12/09 13:13 Chief complaint: Patient states: Generalized weakness, dizziness and nausea when she ph stands to walk, also reports decreased urination denies V/D or fever. Coronavirus screen: Vaccine status: Patient reports being unvaccinated. Ebola Screen: No symptoms or risks identified at this time. Initial Sepsis Screen: Does the patient meet any 2 criteria? No. Patient's initial sepsis screen is negative. Does the patient have a suspected source of infection? No. Patient's initial sepsis screen is negative. Risk Assessment: Do you want to hurt yourself or someone else? Patient reports no desire to harm self or others. Onset of symptoms was December 09, 2024. 13:13 Method Of Arrival: Wheelchair ph 13:13 Acuity: KARTHIK 3 ph Triage Assessment: 13:17 General: Appears in no apparent distress. Behavior is cooperative, appropriate for age, ph anxious. Pain: Denies pain. GI: Reports nausea. : Reports decreased urination. Historical: - Allergies: 13:17 PENICILLINS; ph - PMHx: 13:17 Hypertension; Hypokalemia; Sleep Apnea; Vertigo; ph - PSHx: 13:17 Cholecystectomy; hysterectomy; ph - Immunization history:: Adult Immunizations up to date. - Infectious Disease History:: Denies. - Social history:: Smoking status: Patient denies any tobacco usage or history of. Screenin:44 [facility] ED Fall Risk Assessment (Adult) History of falling in the last 3 months, cm10 including since admission No falls in past 3 months (0 pts) Confusion or Disorientation No (0 pts) Intoxicated or Sedated No (0 pts) Impaired Gait Yes (1 pt) Mobility Assist Device Used Yes (1 pt) Altered Elimination No (0 pt) Score/Fall Risk Level 0 - 2 = Low Risk Oriented to surroundings, Maintained a safe environment, Hourly rounding (assess needs \T\ fall precautionary measures) done. Abuse screen: Denies threats or abuse. Denies injuries from another. Nutritional screening: No deficits noted. Tuberculosis screening: No symptoms or risk factors identified. Assessment: 14:07 Reassessment: No changes from previously documented assessment. Patient and/or family ll1 updated on plan of care and expected duration. Pain level reassessed. 17:47 Reassessment: Pt assisted to restroom at this time. cm10 18:00 Reassessment: Patient appears in no apparent distress at this time. Patient and/or cm10 family updated on plan of care and expected duration. Pain level reassessed. Patient states feeling better. Patient states symptoms have improved. 18:00 GI: Abdomen is non-distended, Reports nausea. cm10 Vital Signs: 13:13 BP 181 / 84; Pulse 89; Resp 18; Temp 98.4; Pulse Ox 99% on R/A; Weight 81.19 kg; Height ph 5 ft. 0 in. ; 14:40 BP 183 / 106 Supine; Pulse 97; cm10 14:42 BP 199 / 104 Sitting; Pulse 96; cm10 14:44 BP 204 / 78 Standing; Pulse 95; cm10 14:58 BP 151 / 50; Pulse 98; Resp 15; Pulse Ox 98% ; cm10 15:30 BP 165 / 71; Pulse 84; Resp 16; Pulse Ox 98% ; cm10 17:59 BP 178 / 82; Pulse 77; Resp 15; Pulse Ox 97% ; cm10 18:36 BP 162 / 76; Pulse 77; Resp 15; Pulse Ox 96% ; cm10 13:13 Body Mass Index 34.96 (81.19 kg, 152.4 cm) ph ED Course: 13:02 Patient arrived in ED. im 13:11 [facility] Haney [facility]-C [facility] kb 13:11 Neymar Shaffer MD is Attending Physician. kb 13:16 Triage completed. ph 13:17 Arm band placed on. ph 13:55 Radiology exam delayed due to lab results not completed at this time. (BUN/Creatinine) nj IV insertion attempt and/or patient not having appropriate IV at this time. 13:57 Chest Single View XRAY In Process Unspecified. EDMS 14:05 Lucy Rodriguez, ANMOL is Primary Nurse. cm10 14:07 Patient placed in an exam room, on a stretcher. ll1 14:43 Patient has correct armband on for positive identification. Bed in low position. Call cm10 light in reach. Side rails up X2. Client placed on continuous cardiac and pulse oximetry monitoring. NIBP monitoring applied. compliance monitor on. 14:43 Initial lab(s) drawn, by me, sent to lab. EKG done, by ED staff, reviewed by Soraida CINTRON. Inserted saline lock: 20 gauge in right antecubital area, using aseptic technique. Blood collected. Flushed with 10 mL NS. 15:53 CT Abd/Pelvis - IV Contrast Only In Process Unspecified. EDMS 17:58 Urinalysis w/ reflexes Sent. cm10 18:37 Provided Education on: ER process and procedures.. cm10 18:37 No provider procedures requiring assistance completed. IV discontinued, intact, cm10 bleeding controlled, No redness/swelling at site. Pressure dressing applied. Administered Medications: 14:56 Drug: hydrOXYzine PO 25 mg PO once Route: PO; cm10 15:26 Follow up: Response: No adverse reaction cm10 14:56 Drug: NS 0.9% IV 500 ml 500 ml IV at 1 bolus once; to be given as a bolus over 30 cm10 minutes Volume: 500 ml; Route: IV; Rate: 1 bolus; Site: right antecubital; 15:26 Follow up: Response: No adverse reaction; IV Status: Completed infusion; IV Intake: cm10 500ml 17:58 Drug: morphine IVP or IV 2 mg IVP once over 4 mins Route: IVP; Infused Over: 4 mins; cm10 Site: right antecubital; 18:15 Follow up: Response: No adverse reaction cm10 17:58 Drug: Ondansetron IVP 4 mg IVP once; over 2 minutes Route: IVP; Site: right antecubital;cm10 18:18 Follow up: Response: No adverse reaction cm10 Medication: 14:44 VIS not applicable for this client. cm10 Intake: 15:26 IV: 500ml; Total: 500ml. cm10 Outcome: 18:10 Discharge ordered by MD. monteiro 18:37 Discharged to home via wheelchair, with family, cm10 18:37 Condition: good 18:37 Discharge instructions given to patient, Instructed on discharge instructions, follow up and referral plans. Demonstrated understanding of instructions, follow-up care, 18:38 Patient left the ED. cm10 Signatures: Dispatcher [employer] EDMS Soraida Haney FNP-C FNP-CkPrema Díaz, RN RN ph Javier, Margot Gomez RN RN ll1 Nguyen Yan Clarissa RN RN cm10
--- NOTE | 2024-12-09 18:11 | EDPHYS ---
Physician Documentation [facility] Name: Dionne Lindo Age: 84 yrs Sex: Female : 1940 Arrival Date: 12/09/2024 Time: 12:58 Bed 6 Private MD: ED Physician Neymar Shaffer HPI: 12/09 13:29 This 84 yrs old Female presents to ER via Wheelchair with complaints of Nausea, kb Abdominal Pain. 13:29 Pt is an 84 year old female who presents for nausea, malaise, generalized weakness and kb decreased urination that started yesterday. States she gets nauseated every time she stands up or talks. Denies vomiting, diarrhea, fever. States she feels like she is going to pass out when she walks around. . Historical: - Allergies: 13:17 PENICILLINS; ph - PMHx: 13:17 Hypertension; Hypokalemia; Sleep Apnea; Vertigo; ph - PSHx: 13:17 Cholecystectomy; hysterectomy; ph - Immunization history:: Adult Immunizations up to date. - Infectious Disease History:: Denies. - Social history:: Smoking status: Patient denies any tobacco usage or history of. ROS: 13:29 Constitutional: As per HPI kb Exam: 13:29 Head/Face: Normocephalic, atraumatic. ENT: Moist Mucous membranes Cardiovascular: kb Regular rate Respiratory: Respirations even and unlabored. No increased work of breathing. Talking in full sentences Skin: Warm, dry with normal turgor. Normal color. MS/ Extremity: Pulses equal, no cyanosis. Neurovascular intact. Full, normal range of motion. Neuro: Awake and alert, GCS 15, oriented to person, place, time, and situation. 13:29 Abdomen/GI: Inspection: abdomen appears normal, Bowel sounds: normal, Palpation: soft, in all quadrants, mild abdominal tenderness, in the right upper quadrant, 13:29 Constitutional: The patient appears alert, awake, uncomfortable, kb 15:04 ECG was reviewed by the Attending Physician. kb Vital Signs: 13:13 BP 181 / 84; Pulse 89; Resp 18; Temp 98.4; Pulse Ox 99% on R/A; Weight 81.19 kg; Height ph 5 ft. 0 in. ; 14:40 BP 183 / 106 Supine; Pulse 97; cm10 14:42 BP 199 / 104 Sitting; Pulse 96; cm10 14:44 BP 204 / 78 Standing; Pulse 95; cm10 14:58 BP 151 / 50; Pulse 98; Resp 15; Pulse Ox 98% ; cm10 15:30 BP 165 / 71; Pulse 84; Resp 16; Pulse Ox 98% ; cm10 17:59 BP 178 / 82; Pulse 77; Resp 15; Pulse Ox 97% ; cm10 18:36 BP 162 / 76; Pulse 77; Resp 15; Pulse Ox 96% ; cm10 13:13 Body Mass Index 34.96 (81.19 kg, 152.4 cm) ph MDM: 13:12 Medical Screening Exam initiated kb 14:53 Data reviewed: vital signs, nurses notes. kb 18:09 Differential diagnosis: Nonspecific abd pain, viral gastroenteritis, dehydration, kb vertigo, abnormal electrolytes, arrhythmia. Consideration of Admission/Observation Escalation of care including admission/observation considered. admission considered but pt states her symptoms have improved and she wants to go home. Pt has appt with Dr Anderson tomorrow for follow up. Historians other than the Patient: Spouse/Significant Other: spouse. Counseling: I had a detailed discussion with the patient and/or guardian regarding the historical points, exam findings, and any diagnostic results supporting the discharge/admit diagnosis, lab results, radiology results, the need for outpatient follow up, a family practitioner, to return to the emergency department if symptoms worsen or persist or if there are any questions or concerns that arise at home. 12/09 13:20 Order name: Basic Metabolic Panel; Complete Time: 15:33 kb 12/09 13:20 Order name: CBC with Diff; Complete Time: 15:03 kb 12/09 13:20 Order name: Hepatic Function; Complete Time: 15:33 kb 12/09 13:20 Order name: Magnesium; Complete Time: 15:33 kb 12/09 13:20 Order name: Protime (+inr); Complete Time: 15:03 kb 12/09 13:20 Order name: Ptt, Activated; Complete Time: 15:03 kb 12/09 13:20 Order name: Troponin High Sensitivity; Complete Time: 15:33 kb 12/09 13:20 Order name: Urinalysis w/ reflexes; Complete Time: 18:09 kb 12/09 13:20 Order name: Lipase; Complete Time: 15:33 kb 12/09 13:20 Order name: Chest Single View XRAY; Complete Time: 15:03 kb 12/09 13:20 Order name: CT Abd/Pelvis - IV Contrast Only; Complete Time: 17:57 kb 12/09 13:20 Order name: Cardiac monitoring; Complete Time: 14:45 kb 12/09 13:20 Order name: EKG - Nurse/Tech; Complete Time: 14:45 kb 12/09 13:20 Order name: IV Saline Lock; Complete Time: 14:45 kb 12/09 13:20 Order name: Labs collected and sent; Complete Time: 14:45 kb 12/09 13:20 Order name: NPO; Complete Time: 14:45 kb 12/09 13:20 Order name: O2 Per Protocol; Complete Time: 14:45 kb 12/09 13:20 Order name: O2 Sat Monitoring; Complete Time: 14:45 kb 12/09 13:20 Order name: Orthostatics; Complete Time: 14:45 kb EC:04 Rate is 97 beats/min. Rhythm is regular. QRS [place] is Normal. [place] interval is normal at kb 130 msec. QRS interval is normal at 86 msec. QT interval is normal at 452 msec. Administered Medications: 14:56 Drug: hydrOXYzine PO 25 mg PO once Route: PO; cm10 15:26 Follow up: Response: No adverse reaction cm10 14:56 Drug: NS 0.9% IV 500 ml 500 ml IV at 1 bolus once; to be given as a bolus over 30 cm10 minutes Volume: 500 ml; Route: IV; Rate: 1 bolus; Site: right antecubital; 15:26 Follow up: Response: No adverse reaction; IV Status: Completed infusion; IV Intake: cm10 500ml 17:58 Drug: morphine IVP or IV 2 mg IVP once over 4 mins Route: IVP; Infused Over: 4 mins; cm10 Site: right antecubital; 18:15 Follow up: Response: No adverse reaction cm10 17:58 Drug: Ondansetron IVP 4 mg IVP once; over 2 minutes Route: IVP; Site: right antecubital;cm10 18:18 Follow up: Response: No adverse reaction cm10 Disposition: 12/10 07:38 Co-signature as Attending Physician, Neymar Shaffer MD I reviewed the patient's care rn provided by the Advanced Practice Provider and agree with the diagnosis and treatment plan. Disposition Summary: 12/09/24 18:10 Discharge Ordered Notes: Location: Home kb Condition: Stable kb Diagnosis - Nausea kb - Weakness kb Followup: kb - With: Emergency Department - When: As needed - Reason: Worsening of condition Followup: kb - With: Private Physician - When: 2 - 3 days - Reason: Recheck today's complaints, Continuance of care, Re-evaluation by your physician Discharge Instructions: - Discharge Summary Sheet kb - Weakness, [id number] kb - Nausea, Adult, [id number] kb Forms: - Medication Reconciliation Form kb - Antibiotic Education kb - Prescription Opioid Use kb - Patient Portal Instructions kb - Leadership Thank You Letter kb Signatures: Dispatcher [employer] EDMS Soraida Haney, STRATEGIC PARTNER DEVELOPMENT MANAGER-C STRATEGIC PARTNER DEVELOPMENT MANAGER-Neymar Ramon MD MD rn Hall, Patricia, RN RN Lucy Glaser RN RN cm10 Corrections: (The following items were deleted from the chart) 12/09 13:21 13:21 BASIC METABOLIC PANEL+C.LAB.BRZ ordered. EDPA EDMS 13:21 13:21 CBC+H.LAB.BRZ ordered. EDPA EDMS 13:21 13:21 HEPATIC FUNCTION+C.LAB.BRZ ordered. EDPA EDMS 13:21 13:21 MAGNESIUM+C.LAB.BRZ ordered. EDPA EDMS 13:21 13:21 PROTIME (+INR)+COAG.LAB.BRZ ordered. EDPA EDMS 13:21 13:21 PTT, ACTIVATED+COAG.LAB.BRZ ordered. EDPA EDMS 13:21 13:21 Troponin High Sensitivity+C.LAB.BRZ ordered. EDPA EDMS 13:21 13:21 Urinalysis+U.LAB.BRZ ordered. EDPA EDMS 13:21 13:21 LIPASE+C.LAB.BRZ ordered. EDPA EDMS 13:21 13:21 Chest Single View+RAD.RAD.BRZ ordered. EDPA EDMS 13:21 13:21 Abdomen Pelvis W Con+CT.RAD.BRZ ordered. EDPA EDMS 13:29 13:29 Constitutional: This is a well developed, well nourished patient who is awake, kb alert, and in no acute distress. Head/Face: Normocephalic, atraumatic. ENT: Moist Mucous membranes Cardiovascular: Regular rate Respiratory: Respirations even and unlabored. No increased work of breathing. Talking in full sentences Skin: Warm, dry with normal turgor. Normal color. MS/ Extremity: Pulses equal, no cyanosis. Neurovascular intact. Full, normal range of motion. Neuro: Awake and alert, GCS 15, oriented to person, place, time, and situation. kb 13:30 13:29 Pt is an 84 year old female who presents for nausea, malaise, generalized kb weakness and decreased urination that started yesterday. States she gets nauseated every time she stands up or talks. Denies vomiting, diarrhea, fever. kb
[2024-12-09 18:57] VITALS: TEMP 98.4
[2024-12-09 19:05] VITALS: BP 162/76; O2SAT 96
--- NOTE | 2024-12-11 14:46 | EKG ---
Test Date: 2024-12-09 Test Time: 14:29:49 Web Development Manager: KIMBERLY MEASUREMENT RESULTS: Intervals: Rate: 97 TX: 130 QRSD: 86 QT: 356 QTc: 452 [place]: P: 55 TX: 130 QRS: 17 T: 6 INTERPRETIVE STATEMENTS: Sinus rhythm with occasional premature ventricular complexes and fusion complexes Nonspecific T wave abnormality Abnormal ECG Compared to ECG 02/14/2023 13:08:51 Fusion complex(es) now present T-wave abnormality still present Electronically Signed On 12-11-24 14:41:53 CDT by Fer Gonzalez
== END 2024-12-09 18:38 | disposition home or self-care (01) ==
LOC: ER 12:58
DX: R11.0 Nausea (principal); R53.1 Weakness; R53.81 Other malaise; R10.811 Right upper quadrant abdominal tenderness
CPT/HCPCS: 85025; 80048; 36415; 83735; 85610; 80076; 85730; 81003; 84484; 83690; 74177; 71045; Q9967; J2405; J7040; 93005; 96374; 96375; 99285